=== PATIENT | female | born 1950 | race Caucasian/White ===

== ENCOUNTER 2017-01-04 11:47 | Inpatient (IN) ==
[2017-01-04] MEDS ORDERED: ONDANSETRON 4 MG/2 ML VIAL IV STA (12:14)
[2017-01-04] MEDS ORDERED: ONDANSETRON 4 MG/2 ML VIAL ONE (12:16)
[2017-01-04 12:22] LABS: Eosinophils % 5.4 % (0.00-10.9); Hematocrit 28.9 VOL% (35.7-47.0); Hemoglobin 9.6 GM/DL (12.0-16.0); Immature Granulocytes % 1.8 %; Immature Granulocytes Absolute 0.01 #; Lymphocytes # 0.3 10*3/uL (1.4-4.0); Lymphocytes % 44.6 % (21.3-54.2); Mean Corpuscular HGB Conc 33.2 GM/DL (32-36); Mean Corpuscular Hemoglobin 30 PG (27-34); Mean Corpuscular Volume 89.2 FL (87-102); Mean Platelet Volume 11.2 FL (9.6-12.0); Monocytes # 0.1 10*3/uL (0.11-0.8); Monocytes % 17.9 % (1.7-12.7); Neutrophils # 0.2 10*3/uL (1.4-7.4); Neutrophils % 30.3 % (38.7-73.9); Platelet Count 78 T/CUMM (130-400); Red Blood Count 3.24 MC/CUMM (3.8-5.5); Red Cell Distribution Width 13.1 % (9.3-17.3)
[2017-01-04 12:24] LABS: White Blood Count 0.6 T/CUMM (4-12)
[2017-01-04 12:49] LABS: Albumin 2.1 G/DL (3.4-5.0); Bilirubin,Total 0.6 MG/DL (0.2-1.0); Osmolality,Calculated 283.1 MOS/KG (273-304); Potassium 3.1 MMOL/L (3.5-5.1); Total Protein 6.8 G/DL (6.4-8.3)
[2017-01-04 13:29] LABS: Band Neutrophils 5 % (0-10); Eosinophils 5 % (0-10); Hypochromasia 2+; Lymphocytes 30 % (20-55); Microcytosis 2+; Platelet Estimate Decreased; Segmented Neutrophils 55 % (50-85); Total Cells Counted 20
[2017-01-04] MEDS ORDERED: cefTRIAXone 1,000 MG VIAL ONE (13:33)
[2017-01-04] MEDS ORDERED: chlorproMAZINE INJ 50 MG in SODIUM CHLORIDE 0.9% 100 ML IV PRN (13:37)
[2017-01-04] MEDS ORDERED: chlorproMAZINE 25 MG TABLET PO PRN (13:37)
[2017-01-04] MEDS ORDERED: traMADol 50 MG TABLET PO PRN (13:37)
[2017-01-04] MEDS ORDERED: MYLANTA/LIDO VISC 2:1 300 ML BOTTLE SWISH/SPIT PRN (13:37)
[2017-01-04] MEDS ORDERED: ALPRAZolam 0.25 MG TABLET PO PRN (13:37)
[2017-01-04] MEDS ORDERED: TEMAZEPAM 7.5 MG CAPSULE PO PRN (13:37)
[2017-01-04] MEDS ORDERED: ACETAMINOPHEN 325 MG TABLET PO PRN (13:37)
[2017-01-04] MEDS ORDERED: MYLANTA/LIDO VISC 2:1 300 ML BOTTLE SWISH/SWAL PRN (13:37)
[2017-01-04] MEDS ORDERED: chlorproMAZINE INJ 25 MG in SODIUM CHLORIDE 0.9% 100 ML IV PRN (13:37)
[2017-01-04] MEDS ORDERED: ALUMINUM/MAGNES/SIMETH MAX STR 30 ML UDCUP PO PRN (13:37)
[2017-01-04] MEDS ORDERED: BENZTROPINE 2 MG/2 ML AMP IV PRN (13:37)
[2017-01-04] MEDS ORDERED: MAGNESIUM HYDROXIDE SUSP 30 ML UDCUP PO PRN (13:37)
[2017-01-04] MEDS ORDERED: diphenhydrAMINE CAP 25 MG CAPSULE PO PRN (13:37)
[2017-01-04] MEDS ORDERED: LACTULOSE 20 GM/30 ML UDCUP PO PRN (13:37)
[2017-01-04] MEDS ORDERED: guaiFENesin 200 MG/10 ML UDCUP PO PRN (13:37)
[2017-01-04] MEDS ORDERED: cefTRIAXone 1,000 MG in SODIUM CHLORIDE 0.9% 100 ML IV STA (13:39)
--- NOTE | 2017-01-04 13:44 | XRay Report ---
Exam: XR chest 1V Date: 01/04/2017 1:01 PM Comparison: 11/29/2016 Indication: Cough Technique:[Portable AP sitting chest] Findings: The heart is normal in size. Right subclavian venous access catheter with tip in SVC. Chronic scarring in the lungs. Minimal diffuse parenchymal findings at the left lung base. Stable mediastinum and osseous structures. Old healed rib fractures. Impression: Right subclavian venous access catheter in satisfactory position. Chronic scarring. Atelectasis/infiltration at left lung base which can be seen with pneumonia. Follow-up is recommended. PROCEDURE INTERPRETED AT [facility] DEPARTMENT OF RADIOLOGY Final Report Signed by: Dr. Hollie Gray
--- NOTE | 2017-01-04 13:46 | XRay Report ---
Exam: XR abdomen complete w decub Date: 01/04/2017 1:01 PM Comparison: 06/19/2015 Indication: Nausea and vomiting Technique:[Supine and left lateral decubitus abdomen.] Findings: Nonobstructed bowel gas pattern with no free air. Hazy appearance of the abdomen. Prior cholecystectomy with peritoneal dialysis catheter which projects in the upper left pelvis location. Diffuse arterial calcifications are noted with degenerative changes at L2 rib fractures. Impression: Nonobstructive bowel gas pattern no free air. Hazy appearance of the abdomen which can be seen with fluid in the abdomen in patient on peritoneal dialysis, etc. Prior cholecystectomy with diffuse arterial calcifications. PROCEDURE INTERPRETED AT [facility] DEPARTMENT OF RADIOLOGY Final Report Signed by: Dr. Hollie Gray
--- NOTE | 2017-01-04 14:02 | Emergency Department Note ---
Florencio Houser Hilary, am scribing for, and in the presence of, Albert Daniel MD 13:02. Fredy Houser Phillip K, MD, personally performed the services described in this documentation, ascribed by Donna Matias in my presence, and it is both accurate and complete 401 . Arrival - Arrival Chief Complaint: Nausea/Vomiting/Diarrhea Stated Complaint: n/v ED Nursing Triage Note: Brought in per EMS from home with c/o nausea/vomiting onset approx one month ago. +lower abdominal pain. Had gallbladder removed [address] Malcolm KELLOGG, diagnosed with adenocarcinoma. Had first chemo treatment 8 days ago. Mode of Arrival: Stretcher Source: Patient, RN Notes Reviewed Time Seen by Provider: 01/04/17 12:38 - History of Present Illness HPI Narrative: Pt is a 66 y/o female presenting to the ED with N/V/D which onset one month ago. Pt confirms lower abdominal pain, nausea, vomiting, diarrhea, and no appetite but denies blood in stool. Pt states that this pain was going on 2 weeks before her gallbladder removal [address] Malcolm KELLOGG. Pt was diagnosed with Adenocarcinoma and had her first chemo treatment 8 days ago and was given zofran with no relief to her symptoms. 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 Onset (ago): month(s) Consistency: constant Date of Last Menstrual Period: PM Allergies/Adverse Reactions: Allergies Allergy/AdvReac Type Severity Reaction Status Date / Time meperidine [From Demerol] Allergy Severe ANAPHYLAXIS Verified 01/04/17 11:58 Penicillins Allergy Intermediate RASH Verified 01/04/17 11:58 codeine AdvReac Intermediate Nausea Verified 01/04/17 11:58 NSAIDS (Non-Steroidal AdvReac Unknown Unknown/Unable Verified 01/04/17 11:58 Anti-Inflamma to obtain Home Medications: Home Medications Medication Instructions Recorded Confirmed Type Fluoxetine HCl [Prozac] 40 mg PO DAILY 05/26/15 01/04/17 History Insulin Aspart Prot/Asp 70/30 6 unit SUBCUT BID 05/26/15 01/04/17 History [NovoLOG Mix 70/30] Cholecalciferol (Vitamin D3) 2,000 unit PO DAILY 06/13/15 01/04/17 History [Vitamin D3] Calcium Carbonate/Vitamin D3 1 each PO DAILY 11/04/15 01/04/17 History [Calcium 1,000 + D3 Caplet] Clopidogrel [Plavix] 75 mg PO DAILY 11/04/15 01/04/17 History Potassium Chloride Cap/Tab [Micro 8 meq PO DAILY 11/04/15 01/04/17 History K] Sevelamer Carbonate Tab [Renvela 800 mg PO TID W/MEALS 11/04/15 01/04/17 History Tab] Calcitriol 0.5 mcg PO BID 09/21/16 01/04/17 History Omeprazole 20 mg PO DAILY 09/21/16 01/04/17 History Tramadol HCl [Tramadol Tab] 50 mg PO Q8H PRN 11/29/16 01/04/17 History Loratadine Tab [Claritin Tab] 10 mg PO QOTHER DAY PRN 01/04/17 01/04/17 History Ondansetron [Ondansetron Odt] 8 mg PO Q8H PRN 01/04/17 01/04/17 History Rosuvastatin Calcium 40 mg PO DAILY 01/04/17 01/04/17 History Review of System - Review of System 12 point system: reviewed and no additional remarkable complaints except as stated - Review of System Constitutional: Absent: fever Respiratory: Absent: cough Gastrointestinal: Present: abdominal pain (Lower quadrants), nausea, vomiting, diarrhea (jelly like consistency). Absent: hematemesis, hematochezia Genitourinary female: Absent: hematuria (dialysis doesnt produce urine) Musculoskeletal: Absent: back pain Medical,Surgical,& Family Hx - Medical History Cardio: History of: CAD, Hypertension, [place] (2003), PVD Psychological: History of: Depression Neurology: History of: TIA (spring) No history of: Seizures HEENT: History of: Eye Problem Endocrine: History of: Diabetes Mellitus (IDDM), Dyslipidemia Rheumatology: History of;: Gout Renal: History of: Dialysis (peritoneal dialysis), Renal Failure Comment Only: Renal Problems (PD pt) Genitourinary: History of: Genitourinary Cancer (cervical cancer 2007) Gastrointestinal: History of: GERD, GI Problems (Chronic cholecystitis and cholelithiasis, hiatal hernia) Musculoskeletal: History of: Amputation (2 toes on her right foot) Hematology: History of: Anemia No history of: Blood Transfusion Reaction Reproductive: History of: Reproductive Cancer (cervical) Other: History of: Cancer (adenocarcinoma, DR SOARES TO START CHEMO SOON) No history of: Anesthesia Reactions - Surgical History Cardiac Surgeries: Sugical HX of: Cardiac Catheterization (stents x 2, DR HOUSTON 2003), Vascular Access Devices (MEDIPORT) Patient Denies: Cardiac Surgery Thoracic Surgeries: Patient denies;: Organ Transplant, Lobectomy Neurologic Surgeries: Patient denies: Neurologic Surgery HEENT Surgeries: Surgical HX of: Eye Surgery (cataract), Tonsilectomy & Adenoidectomy Patient denies: Thyroid Surgery Abdominal Surgeries: Surgical HX of: Abdominal Surgery, Appendectomy, Cholecystectomy (November), Colonoscopy, EGD Reproductive Surgeries: Patient denies;: Genitourinary Surgery, Gynecologic Surgery Orthopedic Surgeries: Surgical HX of;: Implanted Devices (mediport right chest) - Family History Family History: Reports;: Family Diabetes (FATHER), Family Heart Disease (FATHER ), Family Hypertension (MOTHER), Family Stroke (STROKE) - Social History Smoking Status: Former smoker Frequency of Alcohol Use: None Type of Drug Use: None Exam Vital Signs: Vital Signs Temperature 97.0 F L 01/04/17 11:47 Pulse Rate 86 01/04/17 11:47 Respiratory Rate 18 01/04/17 11:47 Blood Pressure 160/97 01/04/17 11:47 O2 Sat by Pulse Oximetry 100 01/04/17 11:47 - General General appearance: alert, in no apparent distress - Head Head exam: Present: atraumatic, normocephalic - Eye Eye exam: Present: normal appearance, PERRL, EOMI - ENT ENT exam: Present: mucous membranes moist, TM's normal bilaterally. Absent: mucous membranes dry - Neck Neck exam: Present: full ROM, trachea midline. Absent: tenderness - Chest Chest inspection: Present: symmetric chest wall rise. Absent: tenderness - Respiratory Respiratory exam: Present: normal lung sounds bilaterally. Absent: respiratory distress - Cardiovascular Cardiovascular exam: Present: regular rate, normal rhythm, normal heart sounds. Absent: murmur, rubs, gallop - Abdominal Exam Abdominal exam: Present: soft, tenderness (RLQ and RUQ tenderness to palpation) , rebound, diminished bowel sounds. Absent: distention - Extremities Exam Extremities exam: Present: full ROM. Absent: tenderness, pedal edema - Back Exam Back exam: Present: full ROM. Absent: tenderness - Neurological Exam Neurological exam: Present: alert, oriented X3, CN II-XII intact. Absent: motor sensory deficit - Psychiatric Psychiatric exam: Present: normal affect, normal mood - Skin Skin exam: Present: warm, dry, intact, normal color. Absent: rash Course Course Narrative: Patient discussed with Dr. Soares and Dr. Lam. We will give Rocephin in the ED per Dr. oSares. Results - Labs CBC & BMP: 01/04/17 12:06 01/04/17 12:06 Lab Results: I have reviewed the patients labs Labs: Laboratory Tests 01/04/17 01/04/17 01/04/17 12:06 12:06 12:06 WBC 0.6 L* RBC 3.24 L Hgb 9.6 L Hct 28.9 L Plt Count 78 L Neut % (Auto) 30.3 L Harmon % (Auto) 17.9 H Neut # (Auto) 0.2 L Lymph # (Auto) 0.3 L Harmon # (Auto) 0.1 L Sodium 135 L Potassium 3.1 L Chloride 94 L Anion Gap 17.1 H BUN 44 H Creatinine 8.50 H BUN/Creatinine Ratio 5.00 L Glucose 157 H Calcium 8.0 L Lactate Dehydrogenase 295 H Albumin 2.1 L Globulin 4.7 H Albumin/Globulin Ratio 0.4 L Laboratory Tests 01/04/17 12:06 Lactate Dehydrogenase 295 H Disposition Clinical Impression: Neutropenia, Adenocarcinoma, probable peritonitis, ESRD (end stage renal disease) Case discussed with: patient Disposition: Still a Patient Condition: Guarded
[2017-01-04] MEDS ORDERED: cefTRIAXone 1,000 MG in SODIUM CHLORIDE 0.9% 100 ML IV SCH (17:00)
[2017-01-04] MEDS: PROMETHAZINE INJ 25 MG in SODIUM CHLORIDE 0.9% 50 ML IV PRN (17:38)
[2017-01-04] MEDS: SODIUM CHLORIDE 0.9% 1,000 ML IV SCH (17:38)
[2017-01-04] MEDS: FILGRASTIM-SNDZ 300 MCG/0.5 ML SYRINGE SUBCUT SCH (17:38)
[2017-01-04] MEDS ORDERED: ceFAZolin 1,000 MG VIAL INTRAPERIT SCH (18:00)
--- NOTE | 2017-01-04 21:21 | Nephrology Consult Note ---
History of Present Illness Chief complaint: ESRD History of present illness: Ms. Tellez is a 66 year old female admitted with abdominal pain nausea vomiting and diarrhea. She was recently diagnosed with metastatic adenocarcinoma. She recently started chemotherapy with Taxol and carboplatin. She presented with a two-day history of abdominal pain nausea and diarrhea. She has ESRD and is on peritoneal dialysis. She states her dialysate has remained clear. She has no symptoms of volume overload. She denies fever or chills. She has had diffuse myalgias. Home Medications Medication Instructions Recorded Confirmed Type Fluoxetine HCl [Prozac] 40 mg PO DAILY 05/26/15 01/04/17 History Insulin Aspart Prot/Asp 70/30 6 unit SUBCUT BID 05/26/15 01/04/17 History [NovoLOG Mix 70/30] Cholecalciferol (Vitamin D3) 2,000 unit PO DAILY 06/13/15 01/04/17 History [Vitamin D3] Calcium Carbonate/Vitamin D3 1 each PO DAILY 11/04/15 01/04/17 History [Calcium 1,000 + D3 Caplet] Clopidogrel [Plavix] 75 mg PO DAILY 11/04/15 01/04/17 History Potassium Chloride Cap/Tab [Micro 8 meq PO DAILY 11/04/15 01/04/17 History K] Sevelamer Carbonate Tab [Renvela 800 mg PO TID W/MEALS 11/04/15 01/04/17 History Tab] Calcitriol 0.5 mcg PO BID 09/21/16 01/04/17 History Omeprazole 20 mg PO DAILY 09/21/16 01/04/17 History Tramadol HCl [Tramadol Tab] 50 mg PO Q8H PRN 11/29/16 01/04/17 History Loratadine Tab [Claritin Tab] 10 mg PO QOTHER DAY PRN 01/04/17 01/04/17 History Ondansetron [Ondansetron Odt] 8 mg PO Q8H PRN 01/04/17 01/04/17 History Rosuvastatin Calcium 40 mg PO DAILY 01/04/17 01/04/17 History Allergies Allergy/AdvReac Type Severity Reaction Status Date / Time meperidine [From Demerol] Allergy Severe ANAPHYLAXIS Verified 01/04/17 11:58 Penicillins Allergy Intermediate RASH Verified 01/04/17 11:58 codeine AdvReac Intermediate Nausea Verified 01/04/17 11:58 NSAIDS (Non-Steroidal AdvReac Unknown Unknown/Unable Verified 01/04/17 11:58 Anti-Inflamma to obtain Medical,Surgical,& Family Hx - Medical History Cardio: History of: CAD, Hypertension, [place] (2003), PVD Psychological: History of: Depression Neurology: History of: TIA (spring) No history of: Seizures HEENT: History of: Eye Problem Endocrine: History of: Diabetes Mellitus (IDDM), Dyslipidemia Rheumatology: History of;: Gout Renal: History of: Dialysis (peritoneal dialysis), Renal Failure Comment Only: Renal Problems (PD pt) Genitourinary: History of: Genitourinary Cancer (cervical cancer 2007) Gastrointestinal: History of: GERD, GI Problems (Chronic cholecystitis and cholelithiasis, hiatal hernia) Musculoskeletal: History of: Amputation (2 toes on her right foot) Hematology: History of: Anemia No history of: Blood Transfusion Reaction Reproductive: History of: Reproductive Cancer (cervical) Other: History of: Cancer (adenocarcinoma, DR SOARES TO START CHEMO SOON) No history of: Anesthesia Reactions - Surgical History Cardiac Surgeries: Sugical HX of: Cardiac Catheterization (stents x 2, DR HOUSTON 2003), Vascular Access Devices (MEDIPORT) Patient Denies: Cardiac Surgery Thoracic Surgeries: Patient denies;: Organ Transplant, Lobectomy Neurologic Surgeries: Patient denies: Neurologic Surgery HEENT Surgeries: Surgical HX of: Eye Surgery (cataract), Tonsilectomy & Adenoidectomy Patient denies: Thyroid Surgery Abdominal Surgeries: Surgical HX of: Abdominal Surgery, Appendectomy, Cholecystectomy (November), Colonoscopy, EGD Reproductive Surgeries: Patient denies;: Genitourinary Surgery, Gynecologic Surgery Orthopedic Surgeries: Surgical HX of;: Implanted Devices (mediport right chest) - Family History Family History: Reports;: Family Diabetes (FATHER), Family Heart Disease (FATHER ), Family Hypertension (MOTHER), Family Stroke (STROKE) - Social History Smoking Status: Former smoker Frequency of Alcohol Use: None Type of Drug Use: None Review of Systems 12 point system: reviewed and no additional remarkable complaints except as stated Exam - Vital Signs Vital signs: Period Temp Pulse Resp BP Sys/Mckeon Pulse Ox Last 24 Hr 97.6 F 76-84 18-20 100-143/57-91 97-97 Exam: Gen.: Alert and oriented x3. ENT: Pupils equal round reactive to light. EOMs intact. Mucous membranes moist. Neck: Supple. No JVD or bruit. Cardiovascular: Regular rate and rhythm. No murmur rub or gallop Lungs: Clear Abdomen: Moderate right lower quadrant and left lower quadrant tenderness Extremities: No edema Results - Labs CBC & BMP: 01/04/17 12:06 01/04/17 12:06 Assessment and Plan (1) ESRD (end stage renal disease) Status: Acute Assessment and plan: 66-year-old woman admitted with: * ESRD. Continue peritoneal dialysis as noted below * Abdominal pain nausea and diarrhea. Rule out peritonitis. PD fluid for cell count and culture has been ordered. Empiric intraperitoneal antibiotics started. PD fluid has not been cloudy; however, she is neutropenic. She recently had laparoscopic cholecystectomy. It is not tender in the right upper quadrant. This does not appear to be a complication of her surgery. * Neutropenia. Secondary to chemotherapy * Adenocarcinoma. Primary unknown * Diabetes mellitus * Anemia Current Visit: Yes (2) Adenocarcinoma Status: Acute Current Visit: Yes (3) Neutropenia Status: Acute Current Visit: Yes (4) Anemia Status: Acute Current Visit: No (5) Coronary artery disease Status: Acute Current Visit: No (6) Diabetes Status: Acute Current Visit: No (7) Hypertension Status: Acute Current Visit: Yes
[2017-01-05] MEDS: PROMETHAZINE INJ 25 MG in SODIUM CHLORIDE 0.9% 50 ML IV PRN (03:45)
[2017-01-05] MEDS: ceFAZolin 1,000 MG VIAL INTRAPERIT SCH ×2 (05:14→09:42)
[2017-01-05 06:24] LABS: Albumin 1.8 G/DL (3.4-5.0); Bilirubin,Total 0.5 MG/DL (0.2-1.0); Calcium 7.2 MG/DL (8.5-10.1); Osmolality,Calculated 292.4 MOS/KG (273-304); Potassium 2.9 MMOL/L (3.5-5.1); Total Protein 5.2 G/DL (6.4-8.3)
[2017-01-05] MEDS: SODIUM CHLORIDE 0.9% 1,000 ML IV SCH (06:33)
[2017-01-05 06:35] LABS: Eosinophils % 4.2 % (0.00-10.9); Hematocrit 23.8 VOL% (35.7-47.0); Immature Granulocytes % 3.1 %; Immature Granulocytes Absolute 0.03 #; Lymphocytes # 0.3 10*3/uL (1.4-4.0); Lymphocytes % 34.4 % (21.3-54.2); Mean Corpuscular HGB Conc 32.8 GM/DL (32-36); Mean Corpuscular Hemoglobin 30 PG (27-34); Mean Corpuscular Volume 90.2 FL (87-102); Mean Platelet Volume 10.8 FL (9.6-12.0); Monocytes # 0.2 10*3/uL (0.11-0.8); Monocytes % 22.9 % (1.7-12.7); Neutrophils # 0.3 10*3/uL (1.4-7.4); Neutrophils % 35.4 % (38.7-73.9); Platelet Count 71 T/CUMM (130-400); Red Blood Count 2.64 MC/CUMM (3.8-5.5); Red Cell Distribution Width 13.2 % (9.3-17.3)
[2017-01-05 06:37] LABS: Hemoglobin 7.8 GM/DL (12.0-16.0)
[2017-01-05 07:01] LABS: Band Neutrophils 2 % (0-10); Eosinophils 2 % (0-10); Lymphocytes 39 % (20-55); Nucleated Red Blood Cells 1 (0-5); Segmented Neutrophils 34 % (50-85); Total Cells Counted 100
[2017-01-05 07:02] LABS: Hypochromasia 1+; Microcytosis 1+; Ovalocytes Slight; Platelet Estimate Decreased
[2017-01-05] MEDS ORDERED: SODIUM CHLORIDE 0.9% 250 ML IV PRN (08:44)
--- NOTE | 2017-01-05 08:49 | Oncology History&Physical ---
Assessment and Plan (1) Neutropenia Status: Acute Assessment and plan: The patient is covered with antibiotics. We will follow-up blood cultures. I will transfuse 2 units red blood cells today. Dr. Lam is seeing her for continued peritoneal dialysis. She appears stable at this time. Current Visit: Yes History of Present Illness Chief complaint: Abdominal pain History of present illness: Ms. Tellez is a 66 year old female With ESRD on peritoneal dialysis with recent diagnosis of metastatic adenocarcinoma of undetermined origin. Chemotherapy was given last week with Taxol and carboplatinum. The patient has had nausea vomiting and abdominal pain since that time. On evaluation yesterday in the emergency room she was afebrile but did have evidence of neutropenia anemia and thrombocytopenia. Her abdomen was somewhat tender and there was a concern for peritonitis though her fluid studies do not support this. She is admitted for antibiotics and Neupogen. Home Medications Medication Instructions Recorded Confirmed Type Fluoxetine HCl [Prozac] 40 mg PO DAILY 05/26/15 01/04/17 History Insulin Aspart Prot/Asp 70/30 6 unit SUBCUT BID 05/26/15 01/04/17 History [NovoLOG Mix 70/30] Cholecalciferol (Vitamin D3) 2,000 unit PO DAILY 06/13/15 01/04/17 History [Vitamin D3] Calcium Carbonate/Vitamin D3 1 each PO DAILY 11/04/15 01/04/17 History [Calcium 1,000 + D3 Caplet] Clopidogrel [Plavix] 75 mg PO DAILY 11/04/15 01/04/17 History Potassium Chloride Cap/Tab [Micro 8 meq PO DAILY 11/04/15 01/04/17 History K] Sevelamer Carbonate Tab [Renvela 800 mg PO TID W/MEALS 11/04/15 01/04/17 History Tab] Calcitriol 0.5 mcg PO BID 09/21/16 01/04/17 History Omeprazole 20 mg PO DAILY 09/21/16 01/04/17 History Tramadol HCl [Tramadol Tab] 50 mg PO Q8H PRN 11/29/16 01/04/17 History Loratadine Tab [Claritin Tab] 10 mg PO QOTHER DAY PRN 01/04/17 01/04/17 History Ondansetron [Ondansetron Odt] 8 mg PO Q8H PRN 01/04/17 01/04/17 History Rosuvastatin Calcium 40 mg PO DAILY 01/04/17 01/04/17 History Allergies Allergy/AdvReac Type Severity Reaction Status Date / Time meperidine [From Demerol] Allergy Severe ANAPHYLAXIS Verified 01/04/17 11:58 Penicillins Allergy Intermediate RASH Verified 01/04/17 11:58 codeine AdvReac Intermediate Nausea Verified 01/04/17 11:58 NSAIDS (Non-Steroidal AdvReac Unknown Unknown/Unable Verified 01/04/17 11:58 Anti-Inflamma to obtain Medical,Surgical,& Family Hx - Medical History Cardio: History of: CAD, Hypertension, [place] (2003), PVD Psychological: History of: Depression Neurology: History of: TIA (spring) No history of: Seizures HEENT: History of: Eye Problem Endocrine: History of: Diabetes Mellitus (IDDM), Dyslipidemia Rheumatology: History of;: Gout Renal: History of: Dialysis (peritoneal dialysis), Renal Failure Comment Only: Renal Problems (PD pt) Genitourinary: History of: Genitourinary Cancer (cervical cancer 2007) Gastrointestinal: History of: GERD, GI Problems (Chronic cholecystitis and cholelithiasis, hiatal hernia) Musculoskeletal: History of: Amputation (2 toes on her right foot) Hematology: History of: Anemia No history of: Blood Transfusion Reaction Reproductive: History of: Reproductive Cancer (cervical) Other: History of: Cancer (adenocarcinoma, DR SOARES TO START CHEMO SOON) No history of: Anesthesia Reactions - Surgical History Cardiac Surgeries: Sugical HX of: Cardiac Catheterization (stents x 2, DR HOUSTON 2003), Vascular Access Devices (MEDIPORT) Patient Denies: Cardiac Surgery Thoracic Surgeries: Patient denies;: Organ Transplant, Lobectomy Neurologic Surgeries: Patient denies: Neurologic Surgery HEENT Surgeries: Surgical HX of: Eye Surgery (cataract), Tonsilectomy & Adenoidectomy Patient denies: Thyroid Surgery Abdominal Surgeries: Surgical HX of: Abdominal Surgery, Appendectomy, Cholecystectomy (November), Colonoscopy, EGD Reproductive Surgeries: Patient denies;: Genitourinary Surgery, Gynecologic Surgery Orthopedic Surgeries: Surgical HX of;: Implanted Devices (mediport right chest) - Family History Family History: Reports;: Family Diabetes (FATHER), Family Heart Disease (FATHER ), Family Hypertension (MOTHER), Family Stroke (STROKE) - Social History Smoking Status: Former smoker Frequency of Alcohol Use: None Type of Drug Use: None - Constitutional Constitutional: Present: fatigue. Absent: fever(s) - EENT Eye: Absent: blurry vision Ears: Absent: ear discharge, ear pain Nose, mouth and throat: Absent: epistaxis, neck mass, neck pain - Cardiovascular Cardiovascular ROS IM: Absent: chest pain - Respiratory Respiratory: Absent: hemoptysis - Gastrointestinal Gastrointestinal: Present: abdominal pain, diarrhea. Absent: dysphagia - Genitourinary Genitourinary ROS female: Absent: dysuria - Musculoskeletal Musculoskeletal ROS: Absent: muscle weakness - Psychiatric Psychiatric General: Absent: anxiety, confusion Exam - Constitutional Vitals: Period Temp Pulse Resp BP Sys/Mckeon Pulse Ox Last 24 Hr 96.7 F-98.3 F 76-104 18-20 86-143/47-91 90-97 General appearance: over weight - Head Head Exam: Present: normal inspection, normocephalic - Eye Eye Exam: Present: EOMI. Absent: conjunctival injection, periorbital swelling, scleral icterus Pupils: Present: PERRL, normal accommodation - ENT ENT exam: Present: normal external ear exam - Neck Neck exam: Present: normal inspection. Absent: lymphadenopathy - Respiratory Respiratory exam: Present: CTAB. Absent: accessory muscle use, chest wall tenderness - Cardiovascular Cardiovascular exam: Present: RRR - GI/Abdominal GI/Abdominal exam: Absent: ascites, distended, firm, guarding, tenderness - Neurological Exam Neurological exam: Present: alert, oriented X3 Results - Labs CBC & BMP: 01/05/17 04:00 01/05/17 04:00
[2017-01-05] MEDS ORDERED: ONDANSETRON ODT 4 MG TABLET PO PRN (08:51)
[2017-01-05] MEDS ORDERED: traMADol 50 MG TABLET PO PRN (08:51)
[2017-01-05] MEDS ORDERED: LORATADINE 10 MG TABLET PO PRN (08:51)
[2017-01-05] MEDS ORDERED: POTASSIUM CHLORIDE 20 MEQ TABLET PO ONE (08:52)
[2017-01-05] MEDS: FILGRASTIM-SNDZ 300 MCG/0.5 ML SYRINGE SUBCUT SCH (08:54)
[2017-01-05] MEDS: cefTRIAXone 1,000 MG in SODIUM CHLORIDE 0.9% 100 ML IV SCH (10:00)
[2017-01-05] MEDS: CLOPIDOGREL 75 MG TABLET PO SCH (10:06)
[2017-01-05] MEDS: POTASSIUM CHLORIDE 8 MEQ CAPSULE PO SCH (10:06)
[2017-01-05] MEDS: CALCIUM (CARBONATE)/VITAMIN D 600 MG-400 UNIT TABLET PO SCH (10:06)
[2017-01-05] MEDS: PANTOPRAZOLE 40 MG TABLET PO SCH (10:07)
[2017-01-05] MEDS: FLUoxetine 20 MG CAPSULE PO SCH (10:07)
[2017-01-05] MEDS: CALCITRIOL 0.25 MCG CAPSULE PO SCH ×2 (10:16→20:39)
[2017-01-05] MEDS: CHOLECALCIFEROL 1,000 UNIT TABLET PO SCH (10:16)
[2017-01-05] MEDS: INSULIN ASPART PROTAMINE/ASPART 70/30 100 UNIT/ML SUBCUT SCH ×2 (10:22→20:42)
[2017-01-05] MEDS ORDERED: GLUCAGON 1 MG VIAL IM PRN (13:20)
[2017-01-05] MEDS ORDERED: DEXTROSE 50% 25 GM/50 ML VIAL IV PRN (13:20)
[2017-01-05] MEDS: SEVELAMER CARBONATE 800 MG TABLET PO SCH ×3 (13:57→17:36)
[2017-01-05] MEDS: INSULIN REGULAR 100 UNIT/ML SUBCUT SCH ×3 (13:59→20:42)
--- NOTE | 2017-01-05 18:11 | Nephrology Progress Note ---
Nephrology - PN: Subj Interval history: She feels significantly better today. Nausea has improved. Abdominal pain less Exam (PN)-Nephrology - Vital Signs Vital signs: Period Temp Pulse Resp BP Sys/Mckeon Pulse Ox Last 24 Hr 97.2 F-99.3 F 83-98 18-20 110-164/52-72 90-95 Exam: Gen.: Alert and oriented x3. ENT: Pupils equal round reactive to light. EOMs intact. Mucous membranes moist. Neck: Supple. No JVD or bruit. Cardiovascular: Regular rate and rhythm. No murmur rub or gallop Lungs: Clear Abdomen: Mild right lower quadrant and left lower quadrant tenderness. No rebound Extremities: No edema - Lab 01/05/17 04:00 01/05/17 04:00 Most recent lab results Calcium 7.2 MG/DL (8.5-10.1) L 01/05/17 04:00 Assessment and Plan (1) ESRD (end stage renal disease) Status: Acute Assessment and plan: 66-year-old woman admitted with: * ESRD. Continue peritoneal dialysis as noted below * Abdominal pain nausea and diarrhea. Rule out peritonitis. White blood cell count 18 in PD fluid. Culture pending * Neutropenia. Secondary to chemotherapy * Adenocarcinoma. Primary unknown * Diabetes mellitus * Anemia Current Visit: Yes (2) Adenocarcinoma Status: Acute Current Visit: Yes (3) Neutropenia Status: Acute Current Visit: Yes (4) Anemia Status: Acute Current Visit: No (5) Coronary artery disease Status: Acute Current Visit: No (6) Diabetes Status: Acute Current Visit: No (7) Hypertension Status: Acute Current Visit: Yes
[2017-01-05] MEDS: DESITIN 4OZ/NYSTATIN 15 GRAM MIXTURE PASTE TOP SCH (20:41)
[2017-01-06 05:47] LABS: Basophils # 0.1 10*3/uL (0.0-0.2); Basophils % 1.3 % (0.0-0.8); Eosinophils # 0.2 10*3/uL (0.0-0.87); Eosinophils % 3.3 % (0.00-10.9); Hemoglobin 9.9 GM/DL (12.0-16.0); Immature Granulocytes % 4.9 %; Immature Granulocytes Absolute 0.22 #; Lymphocytes # 0.7 10*3/uL (1.4-4.0); Lymphocytes % 16.1 % (21.3-54.2); Mean Corpuscular Hemoglobin 30 PG (27-34); Mean Corpuscular Volume 89.6 FL (87-102); Mean Platelet Volume 10.8 FL (9.6-12.0); Monocytes # 0.6 10*3/uL (0.11-0.8); Monocytes % 13.6 % (1.7-12.7); NRBC # 0.02 10*3/uL; Neutrophils # 2.7 10*3/uL (1.4-7.4); Neutrophils % 60.8 % (38.7-73.9); Platelet Count 75 T/CUMM (130-400); Red Blood Count 3.35 MC/CUMM (3.8-5.5); Red Cell Distribution Width 13.7 % (9.3-17.3); White Blood Count 4.5 T/CUMM (4-12)
[2017-01-06 06:16] LABS: Band Neutrophils 13 % (0-10); Eosinophils 4 % (0-10); Hypochromasia 1+; Lymphocytes 12 % (20-55); Promyelocytes 1 %; Segmented Neutrophils 56 % (50-85); Total Cells Counted 100
[2017-01-06 06:17] LABS: Microcytosis 1+; Platelet Estimate Decreased
[2017-01-06 06:31] LABS: Albumin 1.7 G/DL (3.4-5.0); Bilirubin,Total 0.9 MG/DL (0.2-1.0); Calcium 7.8 MG/DL (8.5-10.1); Osmolality,Calculated 288.4 MOS/KG (273-304); Potassium 2.6 MMOL/L (3.5-5.1); Total Protein 5.4 G/DL (6.4-8.3)
[2017-01-06] MEDS: ceFAZolin 1,000 MG VIAL INTRAPERIT SCH ×2 (06:31→19:22)
[2017-01-06] MEDS: SEVELAMER CARBONATE 800 MG TABLET PO SCH ×3 (08:34→16:59)
[2017-01-06] MEDS: INSULIN REGULAR 100 UNIT/ML SUBCUT SCH ×3 (08:53→18:03)
[2017-01-06] MEDS: POTASSIUM CHLORIDE 8 MEQ CAPSULE PO SCH (08:54)
[2017-01-06] MEDS: FLUoxetine 20 MG CAPSULE PO SCH (08:54)
[2017-01-06] MEDS: PANTOPRAZOLE 40 MG TABLET PO SCH (08:54)
[2017-01-06] MEDS: CHOLECALCIFEROL 1,000 UNIT TABLET PO SCH (08:54)
[2017-01-06] MEDS: CALCIUM (CARBONATE)/VITAMIN D 600 MG-400 UNIT TABLET PO SCH (08:55)
[2017-01-06] MEDS: CALCITRIOL 0.25 MCG CAPSULE PO SCH ×2 (08:55→21:07)
[2017-01-06] MEDS: INSULIN ASPART PROTAMINE/ASPART 70/30 100 UNIT/ML SUBCUT SCH (08:55)
[2017-01-06] MEDS: FILGRASTIM-SNDZ 300 MCG/0.5 ML SYRINGE SUBCUT SCH (08:55)
[2017-01-06] MEDS: cefTRIAXone 1,000 MG in SODIUM CHLORIDE 0.9% 100 ML IV SCH (08:58)
--- NOTE | 2017-01-06 09:15 | Oncology Progress Note ---
Assessment and Plan (1) Neutropenia Status: Acute Assessment and plan: The patient is covered with antibiotics. We will follow-up blood cultures. I will transfuse 2 units red blood cells today. Dr. Lam is seeing her for continued peritoneal dialysis. She appears stable at this time. Current Visit: Yes Oncology Subjective PN Interval history: Patient with adenocarcinoma metastatic of unknown primary status post first chemotherapy now with pancytopenia. Her white blood count is improving. She appears nontoxic. Peritoneal fluid negative for significant neutrophils. Her lungs are clear. She is having some difficulty controlling her left hand and is reporting some left-sided weakness. She had a lacunar infarct noted on October MRI brain. She is high risk for further CVA and also for GRADER MARKER metastasis. We will replete her potassium and magnesium today and plan on MRI later this afternoon. Continuing systemic antibiotics and Neupogen Exam - Constitutional Vitals: Period Temp Pulse Resp BP Sys/Mckeon Pulse Ox Last 24 Hr 80 F-99.3 F 80-98 18-20 110-196/52-95 90-95 Results - Labs CBC & BMP: 01/06/17 04:41 01/06/17 04:41
[2017-01-06] MEDS ORDERED: MAGNESIUM SULF RIDER 2 GM in PREMIX 1 EACH IV ONE (09:20)
--- NOTE | 2017-01-06 10:21 | Nephrology Progress Note ---
Nephrology - PN: Subj Interval history: Pt states her RLQ abd pain is about the same as yesterday, but improved from admission. She denies SOB. Exam (PN)-Nephrology - Vital Signs Vital signs: Period Temp Pulse Resp BP Sys/Mckeno Pulse Ox Last 24 Hr 80 F-99.3 F 80-98 18-20 110-196/52-95 90-95 - General Appearance General appearance: well-developed, obese EENT: ATNC, PERRL, mucous membranes dry, hearing intact, vision intact Neck: no JVD, no thyromegaly Respiratory: no kyphosis, clear Cardiology: no murmurs, no rub, edema Gastrointestinal: normoactive bowel sounds, no guarding, obese Integumentary: no rash, warm and dry Neurologic: no focal deficit, no asterixis, alert and oriented x3 Musculoskeletal: no deformities, no erythema - Lab 01/06/17 04:41 01/06/17 04:41 Most recent lab results Calcium 7.8 MG/DL (8.5-10.1) L 01/06/17 04:41 Assessment and Plan (1) ESRD on peritoneal dialysis Problem details: Continue current exchanges. Replace K. Status: Acute Current Visit: Yes
[2017-01-06] MEDS: DESITIN 4OZ/NYSTATIN 15 GRAM MIXTURE PASTE TOP SCH ×2 (11:34→21:09)
[2017-01-06] MEDS: POTASSIUM CHLORIDE RIDER 20 MEQ in PREMIX 1 EACH IV SCH ×2 (11:35→13:31)
[2017-01-06] MEDS: CLOPIDOGREL 75 MG TABLET PO SCH (12:16)
[2017-01-07] MEDS: INSULIN REGULAR 100 UNIT/ML SUBCUT SCH ×5 (00:18→20:11)
[2017-01-07] MEDS: INSULIN ASPART PROTAMINE/ASPART 70/30 100 UNIT/ML SUBCUT SCH ×3 (00:19→20:38)
[2017-01-07 07:06] LABS: Basophils # 0.1 10*3/uL (0.0-0.2); Basophils % 0.8 % (0.0-0.8); Eosinophils # 0.1 10*3/uL (0.0-0.87); Eosinophils % 0.7 % (0.00-10.9); Hematocrit 33.2 VOL% (35.7-47.0); Hemoglobin 10.9 GM/DL (12.0-16.0); Immature Granulocytes % 5.3 %; Immature Granulocytes Absolute 0.75 #; Lymphocytes # 0.9 10*3/uL (1.4-4.0); Lymphocytes % 6.6 % (21.3-54.2); Mean Corpuscular HGB Conc 32.8 GM/DL (32-36); Mean Corpuscular Hemoglobin 30 PG (27-34); Mean Corpuscular Volume 91.2 FL (87-102); Mean Platelet Volume 10.7 FL (9.6-12.0); Monocytes # 0.9 10*3/uL (0.11-0.8); Monocytes % 6.7 % (1.7-12.7); Neutrophils # 11.2 10*3/uL (1.4-7.4); Neutrophils % 79.9 % (38.7-73.9); Platelet Count 88 T/CUMM (130-400); Red Blood Count 3.64 MC/CUMM (3.8-5.5); Red Cell Distribution Width 13.7 % (9.3-17.3)
[2017-01-07 07:40] LABS: Alanine Aminotransferase < 9 U/L (13-56); Albumin 1.7 G/DL (3.4-5.0); Alkaline Phosphatase 119 U/L (45-117); Aspartate Amino Transferase 23 U/L (0-37); Blood Urea Nitrogen 37 MG/DL (7-18); Glucose 85 MG/DL (74-106); Osmolality,Calculated 288.3 MOS/KG (273-304); Potassium 2.7 MMOL/L (3.5-5.1); Sodium 141 MMOL/L (136-145); Total Protein 5.1 G/DL (6.4-8.3)
[2017-01-07 08:06] LABS: Band Neutrophils 7 % (0-10); Eosinophils 1 % (0-10); Hypochromasia 1+; Lymphocytes 4 % (20-55); Metamyelocytes 2 %; Microcytosis 1+; Segmented Neutrophils 83 % (50-85); Total Cells Counted 100
[2017-01-07 08:23] LABS: Platelet Estimate Decreased
--- NOTE | 2017-01-07 09:36 | Nephrology Progress Note ---
Nephrology - PN: Subj Interval history: PT still with diarrhea, abd pain resolved. WBC up to 14k today. She c/o her left hand not working properly. Abnormal finger pointing. She reports having 2 "mini strokes" in past with no prior noted residual neurologic deficits. Had K and Mg replaced yesterday. Exam (PN)-Nephrology - Vital Signs Vital signs: Period Temp Pulse Resp BP Sys/Mckeon Pulse Ox Last 24 Hr 97.1 F-97.9 F 86-96 18-20 98-178/42-67 92-96 - General Appearance General appearance: well-developed, chronically ill EENT: ATNC, PERRL, mucous membranes dry, hearing intact, vision intact Neck: no JVD, no thyromegaly Respiratory: no kyphosis, clear Cardiology: no murmurs, no rub Gastrointestinal: normoactive bowel sounds, no tenderness Integumentary: no rash, warm and dry Neurologic: no focal deficit, no asterixis, upper extremity weakness (left upper extremity abnormal finger pointing) Musculoskeletal: no deformities, no erythema Psychiatric: mood/affect appropriate, cooperative - Lab 01/07/17 04:15 01/07/17 04:15 Most recent lab results Calcium 8.0 MG/DL (8.5-10.1) L 01/07/17 04:15 Assessment and Plan (1) ESRD on peritoneal dialysis Problem details: Continue current exchanges. 40meq po bid ordered. Goal >3.5. Status: Acute Current Visit: Yes
[2017-01-07] MEDS: CHOLECALCIFEROL 1,000 UNIT TABLET PO SCH (09:55)
[2017-01-07] MEDS: CALCITRIOL 0.25 MCG CAPSULE PO SCH ×2 (09:55→20:33)
[2017-01-07] MEDS: CALCIUM (CARBONATE)/VITAMIN D 600 MG-400 UNIT TABLET PO SCH (09:56)
[2017-01-07] MEDS: FLUoxetine 20 MG CAPSULE PO SCH (09:56)
[2017-01-07] MEDS: CLOPIDOGREL 75 MG TABLET PO SCH (09:56)
[2017-01-07] MEDS: SEVELAMER CARBONATE 800 MG TABLET PO SCH ×3 (09:56→17:18)
[2017-01-07] MEDS: PANTOPRAZOLE 40 MG TABLET PO SCH (09:56)
[2017-01-07] MEDS: cefTRIAXone 1,000 MG in SODIUM CHLORIDE 0.9% 100 ML IV SCH (09:57)
[2017-01-07] MEDS: DESITIN 4OZ/NYSTATIN 15 GRAM MIXTURE PASTE TOP SCH ×2 (09:58→20:38)
[2017-01-07] MEDS: FILGRASTIM-SNDZ 300 MCG/0.5 ML SYRINGE SUBCUT SCH (09:58)
--- NOTE | 2017-01-07 10:54 | Oncology Progress Note ---
Assessment and Plan (1) Neutropenia Status: Acute Assessment and plan: The patient is covered with antibiotics. We will follow-up blood cultures. I will transfuse 2 units red blood cells today. Dr. Lam is seeing her for continued peritoneal dialysis. She appears stable at this time. Current Visit: Yes Oncology Subjective PN Interval history: Patient stable overnight. Ongoing potassium replacement. Magnesium level is pending for today. Still with some difficulty with left hand usage and some subjective weakness involving the left leg. I canceled her MRI yesterday in an attempt to see if the musculoskeletal symptoms would respond to electrolyte manipulation. I am rescheduling this today with both the concern for malignancy and/or another vascular event. I am going to stop her antibiotics as her white blood count is normalized, she is afebrile and cultures are negative. Hopefully this will help with her diarrhea along with the addition of a probiotic. Her abdominal exam is benign Exam - Constitutional Vitals: Period Temp Pulse Resp BP Sys/Mckeon Pulse Ox Last 24 Hr 97.1 F-97.9 F 86-98 18-20 98-178/42-67 92-96 Results - Labs CBC & BMP: 01/07/17 04:15 01/07/17 04:15
[2017-01-07] MEDS: POTASSIUM CHLORIDE 20 MEQ TABLET PO SCH ×2 (11:05→20:35)
[2017-01-07] MEDS: LOPERAMIDE 2 MG CAPSULE PO PRN ×2 (11:10→20:37)
[2017-01-07] MEDS: LACTOBACILLUS RHAMNOSUS GG CAPSULE PO SCH (11:11)
[2017-01-07] MEDS: POTASSIUM CHLORIDE 8 MEQ CAPSULE PO SCH (12:11)
[2017-01-07] MEDS: ONDANSETRON 4 MG/2 ML VIAL IV PRN (13:37)
[2017-01-07] MEDS: POTASSIUM CHLORIDE RIDER 20 MEQ in PREMIX 1 EACH IV SCH ×2 (13:37→15:52)
--- NOTE | 2017-01-07 13:56 | Magnetic Resonance Report ---
Referring physician: Jakub Dumont Exam: MRI brain without contrast Date: January 07, 2017 Comparison: MRI brain October 22, 2015 Reason: Cancer and left upper extremity weakness The patient is an inpatient who was admitted on January 05, 2017. Technique: MRI of the brain was performed without the use of contrast. Obtained images include sagittal T1, axial diffusion-weighted, axial FLAIR, axial T2, coronal T2, axial gradient and axial T1 sequences. A 1.5 Cynthia magnet was used. Findings: There is a moderate area of diffusion restriction with corresponding T2/FLAIR hyperintensity within the superior left cerebellum. It measures approximately 3.5 cm in maximum dimension on the coronal images and is most consistent with an acute infarction. This is in a superior cerebellar artery distribution. A tiny acute infarction is also suspected at the cortex of the parasagittal right occipital lobe. There is a minimal area of diffusion restriction at the subcortical white matter of the posterior right parietal lobe. No corresponding abnormal signal seen on the ADC map, and this likely reflects artifact. There is FLAIR hyperintensity in this area, which likely represents a small remote infarction. Similar abnormal signal is seen at the cortex of the posterior lateral left parietal lobe, suggesting a small remote infarction. There are small scattered areas of T2/FLAIR hyperintensity within the cerebral white matter bilaterally as well as within the michelle. This is similar to before. This is nonspecific but likely represents chronic microvascular ischemic change. Less likely considerations include a demyelinating process, vasculitis, viral process or Lyme disease. A remote lacunar infarction is seen within the right thalamus. This may have been present on the previous study but is better visualized today. A lacunar infarction was previously seen within the periventricular white matter of the left frontal lobe but is not well-demonstrated on today. No hydrocephalus or midline shift is present. There is minimal T1 hyperintensity at the cortex at the small remote infarction at the posterior right parietal lobe. This likely represents calcification and less likely minimal hemorrhage. Minimal T1 hyperintensity is also seen at the cortex of the parasagittal occipital lobes and may represent additional calcification and less likely minimal petechial hemorrhage. The patient may be status post cataract surgery. The orbits and sella are otherwise unremarkable. Major vascular flow voids are visualized. There is minimal mucosal thickening within the right ethmoid air cells. The right mastoid air cells are clear. There is mild fluid within the left mastoid air cells. Impression: 1. There is a moderate acute infarction involving the superior aspect of the left cerebellum in a left superior cerebellar artery distribution. 2. Tiny subcentimeter acute cortical infarction at the parasagittal right occipital lobe. This is in a right posterior cerebral artery distribution. 3. There are small remote infarctions at the posterior parietal lobes bilaterally and a remote lacunar infarction within the right thalamus. 4. Probable mild chronic microvascular ischemic change, similar to before. Findings were discussed with Dr. Dumont on January 07, 2017 at 1:50 PM. This is a critical test. PROCEDURE INTERPRETED AT [facility] DEPARTMENT OF RADIOLOGY Final Report Signed by: Dr. Pallavi Myrick
[2017-01-08] MEDS ORDERED: LACTOBACILLUS RHAMNOSUS GG CAPSULE PO SCH (09:00)
[2017-01-08] MEDS: INSULIN ASPART PROTAMINE/ASPART 70/30 100 UNIT/ML SUBCUT SCH ×2 (09:33→22:13)
[2017-01-08] MEDS: SEVELAMER CARBONATE 800 MG TABLET PO SCH ×3 (09:34→18:25)
[2017-01-08] MEDS: FLUoxetine 20 MG CAPSULE PO SCH (09:35)
[2017-01-08] MEDS: PANTOPRAZOLE 40 MG TABLET PO SCH (09:36)
[2017-01-08] MEDS: CALCITRIOL 0.25 MCG CAPSULE PO SCH ×2 (09:36→22:13)
[2017-01-08] MEDS: CHOLECALCIFEROL 1,000 UNIT TABLET PO SCH (09:37)
[2017-01-08] MEDS: CALCIUM (CARBONATE)/VITAMIN D 600 MG-400 UNIT TABLET PO SCH (09:37)
[2017-01-08] MEDS: POTASSIUM CHLORIDE 20 MEQ TABLET PO SCH ×2 (09:38→22:13)
[2017-01-08] MEDS: CLOPIDOGREL 75 MG TABLET PO SCH (09:38)
[2017-01-08] MEDS: LACTOBACILLUS RHAMNOSUS GG CAPSULE PO SCH (09:38)
[2017-01-08] MEDS: LOPERAMIDE 2 MG CAPSULE PO PRN ×2 (09:38→22:13)
[2017-01-08] MEDS: DESITIN 4OZ/NYSTATIN 15 GRAM MIXTURE PASTE TOP SCH ×2 (09:39→22:12)
[2017-01-08] MEDS: INSULIN REGULAR 100 UNIT/ML SUBCUT SCH ×4 (09:39→21:19)
[2017-01-08 09:54] LABS: Basophils # 0.1 10*3/uL (0.0-0.2); Basophils % 0.4 % (0.0-0.8); Eosinophils # 0.1 10*3/uL (0.0-0.87); Eosinophils % 0.8 % (0.00-10.9); Hematocrit 37.2 VOL% (35.7-47.0); Hemoglobin 12.2 GM/DL (12.0-16.0); Immature Granulocytes % 5.6 %; Immature Granulocytes Absolute 0.74 #; Lymphocytes # 1.1 10*3/uL (1.4-4.0); Lymphocytes % 8.1 % (21.3-54.2); Mean Corpuscular HGB Conc 32.8 GM/DL (32-36); Mean Corpuscular Hemoglobin 30 PG (27-34); Mean Corpuscular Volume 92.1 FL (87-102); Mean Platelet Volume 10.3 FL (9.6-12.0); Monocytes # 1.5 10*3/uL (0.11-0.8); Monocytes % 11.7 % (1.7-12.7); Neutrophils # 9.7 10*3/uL (1.4-7.4); Neutrophils % 73.4 % (38.7-73.9); Platelet Count 90 T/CUMM (130-400); Red Blood Count 4.04 MC/CUMM (3.8-5.5); Red Cell Distribution Width 14.2 % (9.3-17.3); White Blood Count 13.2 T/CUMM (4-12)
[2017-01-08 10:20] LABS: Band Neutrophils 3 % (0-10); Eosinophils 1 % (0-10); Hypochromasia 1+; Lymphocytes 13 % (20-55); Ovalocytes Slight; Platelet Estimate Decreased; Segmented Neutrophils 76 % (50-85); Total Cells Counted 100
[2017-01-08 10:21] LABS: Microcytosis 1+
[2017-01-08 10:34] LABS: Albumin 1.9 G/DL (3.4-5.0); Calcium 8.1 MG/DL (8.5-10.1); Osmolality,Calculated 292.1 MOS/KG (273-304); Phosphorous 3.1 MG/DL (2.5-4.9)
--- NOTE | 2017-01-08 11:35 | Oncology Progress Note ---
Assessment and Plan (1) CVA (cerebral vascular accident) Status: Acute Assessment and plan: 66 year old female with PMHx of adenocarcinoma stage 4 CUP and on peritoneal dialysis admitted for diarrhea and neutropenia. Hospital course complicated by LUE and LLE weakness with MRI diagnostic of acute CVA as well as new onset swelling of RUE with a port on same side as swelling. 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 - clinically improved today - continue with plavix - BP controlled - glucose controlled Current Visit: Yes (2) Swelling of extremity, right Status: Acute Assessment and plan: - concern for acute DVT - will check a venous doppler - discussed with patient potential need for anticoagulation as well as risk associated in setting of recent CVA on plavix Current Visit: Yes (3) ESRD (end stage renal disease) Status: Acute Assessment and plan: - appreciated renal assistance with peritoneal dialysis Current Visit: Yes (4) Adenocarcinoma Status: Acute Assessment and plan: - will follow up outpatient for further assessment for chemotherapy Current Visit: Yes Oncology Subjective PN Interval history: 66 year old female with PMHx of adenocarcinoma stage 4 CUP and on peritoneal dialysis admitted for diarrhea and neutropenia. Hospital course complicated by LUE and LLE weakness with MRI diagnostic of acute CVA as well as new onset swelling of RUE with a port on same side as swelling. Other than swelling patient states doing ok today. Refers some pain in digits of RUE but otherwise no abdominal pain. Ambulating some. States weakness of left side improved. No headaches. No bleeding history. No fevers. No difficulty with swallowing. No fevers. Exam - Constitutional Vitals: Period Temp Pulse Resp BP Sys/Mckeon Pulse Ox Last 24 Hr 96.4 F-98.5 F 53-109 14-22 94-133/51-78 94-99 General appearance: no acute distress - Eye Eye Exam: Present: EOMI - Respiratory Respiratory exam: Present: CTAB - Cardiovascular Cardiovascular exam: Present: RRR - GI/Abdominal GI/Abdominal exam: Present: soft. Absent: ascites, distended, mass, tenderness - Extremities Exam Extremities exam: Present: edema (RUE swelling) - Neurological Exam Neurological exam: Present: alert, oriented X3, other (weakness LUE and LLE) - Skin Skin exam: Present: warm Results - Labs CBC & BMP: 01/08/17 09:38 01/08/17 09:38
--- NOTE | 2017-01-08 14:36 | Nephrology Progress Note ---
Nephrology - PN: Subj Interval history: Pt states she feels much better today. K normal. Left arm weakness improved. MRI revealed acute cerebellar stroke and old brainstem strokes as well. Diarrhea maybe better. New right arm edema. U/S ordered to evaluate for DVT. Exam (PN)-Nephrology - Vital Signs Vital signs: Period Temp Pulse Resp BP Sys/Mckeon Pulse Ox Last 24 Hr 96.4 F-98.5 F 53-109 14-22 94-133/51-78 94-99 - General Appearance General appearance: well-developed, obese EENT: ATNC, PERRL, mucous membranes moist, hearing intact, vision intact Neck: no JVD, no carotid bruit Respiratory: no kyphosis, clear Cardiology: no murmurs, edema (RUE >LUE) Gastrointestinal: normoactive bowel sounds, no tenderness Integumentary: rash (petechial on bilateral UE), warm and dry Neurologic: no asterixis, alert and oriented x3 Musculoskeletal: no deformities, no erythema Psychiatric: mood/affect appropriate, cooperative - Lab 01/08/17 09:38 01/08/17 09:38 Most recent lab results Calcium 8.1 MG/DL (8.5-10.1) L 01/08/17 09:38 Phosphorus 3.1 MG/DL (2.5-4.9) 01/08/17 09:38 Magnesium 2.0 MG/DL (1.8-2.4) 01/07/17 04:15 Assessment and Plan (1) ESRD on peritoneal dialysis Problem details: Continue current exchanges. 40meq po bid ordered. Goal >3.5. Status: Acute Current Visit: Yes
--- NOTE | 2017-01-08 21:27 | Ultrasound Report ---
Indication: Right arm swelling, 3 weeks post-Mediport insertion Duplex scan of the right upper extremity veins Technique: Duplex scan of the right upper extremity veins using B-mode/grayscale imaging and Doppler spectral analysis and color flow Findings: Major venous structures of the right upper extremity demonstrate noncompressibility, lack of flow on color Doppler and filling defects within the subclavian, brachial and basilic veins. The right internal jugular vein and the right cephalic vein however remain compressible with no filling defects. Impression: Images are significant for venous thrombus filling the right subclavian, brachial and basilic veins. Right internal jugular and cephalic veins appear patent. PROCEDURE INTERPRETED AT [facility] DEPARTMENT OF RADIOLOGY Final Report Signed by: Minor Weiss
[2017-01-08] MEDS: HEPARIN DRIP 25,000 UNITS/500 ML PREMIX IV SCH (22:46)
[2017-01-09 04:42] LABS: Basophils # 0.1 10*3/uL (0.0-0.2); Basophils % 0.5 % (0.0-0.8); Eosinophils # 0.1 10*3/uL (0.0-0.87); Eosinophils % 0.8 % (0.00-10.9); Hematocrit 32.5 VOL% (35.7-47.0); Hemoglobin 10.9 GM/DL (12.0-16.0); Immature Granulocytes % 4.9 %; Immature Granulocytes Absolute 0.54 #; Lymphocytes # 1.3 10*3/uL (1.4-4.0); Lymphocytes % 11.4 % (21.3-54.2); Mean Corpuscular HGB Conc 33.5 GM/DL (32-36); Mean Corpuscular Hemoglobin 30 PG (27-34); Mean Corpuscular Volume 89.5 FL (87-102); Monocytes # 1.1 10*3/uL (0.11-0.8); Monocytes % 9.5 % (1.7-12.7); Neutrophils # 8.1 10*3/uL (1.4-7.4); Neutrophils % 72.9 % (38.7-73.9); Platelet Count 76 T/CUMM (130-400); Red Blood Count 3.63 MC/CUMM (3.8-5.5); Red Cell Distribution Width 14.1 % (9.3-17.3); White Blood Count 11.1 T/CUMM (4-12)
[2017-01-09 05:44] LABS: Albumin 1.6 G/DL (3.4-5.0); Calcium 8.1 MG/DL (8.5-10.1); Phosphorous 2.8 MG/DL (2.5-4.9)
[2017-01-09 05:45] LABS: Osmolality,Calculated 287.3 MOS/KG (273-304)
[2017-01-09 05:54] LABS: Band Neutrophils 1 % (0-10); Lymphocytes 11 % (20-55); Microcytosis 1+; Platelet Estimate Decreased; Segmented Neutrophils 81 % (50-85); Total Cells Counted 100
[2017-01-09] MEDS: INSULIN ASPART PROTAMINE/ASPART 70/30 100 UNIT/ML SUBCUT SCH ×3 (08:31→20:35)
[2017-01-09] MEDS: CHOLECALCIFEROL 1,000 UNIT TABLET PO SCH (08:32)
[2017-01-09] MEDS: CLOPIDOGREL 75 MG TABLET PO SCH (08:33)
[2017-01-09] MEDS: SEVELAMER CARBONATE 800 MG TABLET PO SCH ×3 (08:33→17:09)
[2017-01-09] MEDS: CALCITRIOL 0.25 MCG CAPSULE PO SCH ×2 (08:33→20:31)
[2017-01-09] MEDS: CALCIUM (CARBONATE)/VITAMIN D 600 MG-400 UNIT TABLET PO SCH (08:34)
[2017-01-09] MEDS: LOPERAMIDE 2 MG CAPSULE PO PRN (08:34)
[2017-01-09] MEDS: POTASSIUM CHLORIDE 20 MEQ TABLET PO SCH ×2 (08:34→20:31)
[2017-01-09] MEDS: FLUoxetine 20 MG CAPSULE PO SCH (08:34)
[2017-01-09] MEDS: LACTOBACILLUS RHAMNOSUS GG CAPSULE PO SCH (08:35)
[2017-01-09] MEDS: PANTOPRAZOLE 40 MG TABLET PO SCH (08:35)
[2017-01-09] MEDS: DESITIN 4OZ/NYSTATIN 15 GRAM MIXTURE PASTE TOP SCH ×2 (08:36→20:35)
[2017-01-09] MEDS: INSULIN REGULAR 100 UNIT/ML SUBCUT SCH ×4 (08:37→20:30)
[2017-01-09] MEDS: HEPARIN DRIP 25,000 UNITS/500 ML PREMIX IV SCH ×2 (11:30→18:46)
--- NOTE | 2017-01-09 12:00 | Oncology Progress Note ---
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 - clinically improved - continue with plavix - BP controlled - glucose controlled Current Visit: Yes (2) Swelling of extremity, right Status: Acute Assessment and plan: acute DVT confirmed on doppler - started on heparin infusion - tolerating well - will likely transition to coumadin or eliquis in near future Current Visit: Yes (3) Diarrhea Status: Acute Assessment and plan: - per patient feels related to recent cholecystectomy - will check a C diff prior to further management Current Visit: Yes (4) ESRD (end stage renal disease) Status: Acute Assessment and plan: - appreciated renal assistance with peritoneal dialysis Current Visit: Yes (5) Adenocarcinoma Status: Acute Assessment and plan: - will follow up outpatient for further assessment for chemotherapy Current Visit: Yes Oncology Subjective PN Interval history: 66 year old female with PMHx of adenocarcinoma stage 4 CUP and on peritoneal dialysis admitted for diarrhea and neutropenia. Hospital course complicated by acute CVA and extensive DVT of RUE. Today feels well. Refers continued diarrhea 4-6 loose stools per day. Left sided weakness improved. No bleeding but easy bruising. No fevers. Swelling of RUE decreased. Exam - Constitutional Vitals: Period Temp Pulse Resp BP Sys/Mckeon Pulse Ox Last 24 Hr 96.6 F-97.7 F 71-110 19-20 87-144/52-78 95-97 General appearance: no acute distress - Eye Eye Exam: Present: EOMI - Respiratory Respiratory exam: Present: CTAB - Cardiovascular Cardiovascular exam: Present: RRR - GI/Abdominal GI/Abdominal exam: Present: soft. Absent: ascites, distended, mass, tenderness - Extremities Exam Extremities exam: Absent: edema - Neurological Exam Neurological exam: Present: alert, oriented X3, CN II-XII intact, other (left sided weakness 4/5 upper and lower ext) - Skin Skin exam: Present: warm Results - Labs CBC & BMP: 01/09/17 04:00 01/09/17 04:00
--- NOTE | 2017-01-09 12:43 | Nephrology Progress Note ---
Nephrology - PN: Subj Interval history: Diarrhea persists, jelly like consistency. DVT RUE on heparin gtt. Right arm edema improved. Feels much better. Denies abd pain. Exam (PN)-Nephrology - Vital Signs Vital signs: Period Temp Pulse Resp BP Sys/Mckeon Pulse Ox Last 24 Hr 96.9 F-97.7 F 71-110 19-20 87-138/52-78 95-97 - General Appearance General appearance: well-developed, obese EENT: ATNC, PERRL, mucous membranes moist, hearing intact, vision intact Neck: no JVD, no thyromegaly Respiratory: no kyphosis, clear Cardiology: no murmurs, no rub Gastrointestinal: normoactive bowel sounds, obese Integumentary: rash (purpuric lesion resolving), warm and dry Neurologic: no focal deficit, alert and oriented x3 Musculoskeletal: no deformities, no erythema Psychiatric: mood/affect appropriate, cooperative - Lab 01/09/17 04:00 01/09/17 04:00 Most recent lab results Calcium 8.1 MG/DL (8.5-10.1) L 01/09/17 04:00 Phosphorus 2.8 MG/DL (2.5-4.9) 01/09/17 04:00 Magnesium 2.0 MG/DL (1.8-2.4) 01/07/17 04:15 Assessment and Plan (1) ESRD on peritoneal dialysis Problem details: Continue current exchanges. Potassium stable at 4.0. Status: Acute Current Visit: Yes
[2017-01-10] MEDS ORDERED: PROMETHAZINE 25 MG/1 ML VIAL IV ONE (00:30)
[2017-01-10 04:33] LABS: Basophils # 0.1 10*3/uL (0.0-0.2); Basophils % 0.4 % (0.0-0.8); Eosinophils # 0.1 10*3/uL (0.0-0.87); Eosinophils % 0.5 % (0.00-10.9); Hematocrit 34.8 VOL% (35.7-47.0); Hemoglobin 11.1 GM/DL (12.0-16.0); Immature Granulocytes % 4.9 %; Immature Granulocytes Absolute 0.56 #; Lymphocytes # 1.3 10*3/uL (1.4-4.0); Lymphocytes % 11.1 % (21.3-54.2); Mean Corpuscular HGB Conc 31.9 GM/DL (32-36); Mean Corpuscular Hemoglobin 29 PG (27-34); Mean Corpuscular Volume 92.3 FL (87-102); Mean Platelet Volume 10.5 FL (9.6-12.0); Monocytes # 0.9 10*3/uL (0.11-0.8); Monocytes % 8.2 % (1.7-12.7); Neutrophils # 8.5 10*3/uL (1.4-7.4); Neutrophils % 74.9 % (38.7-73.9); Platelet Count 78 T/CUMM (130-400); Red Blood Count 3.77 MC/CUMM (3.8-5.5); Red Cell Distribution Width 14.4 % (9.3-17.3); White Blood Count 11.4 T/CUMM (4-12)
[2017-01-10 04:53] LABS: Albumin 1.6 G/DL (3.4-5.0); Calcium 8.2 MG/DL (8.5-10.1); Osmolality,Calculated 282.8 MOS/KG (273-304); Phosphorous 3.7 MG/DL (2.5-4.9); Potassium 4.3 MMOL/L (3.5-5.1)
[2017-01-10 05:59] LABS: Band Neutrophils 6 % (0-10); Lymphocytes 11 % (20-55); Myelocytes 2 %; Segmented Neutrophils 80 % (50-85); Total Cells Counted 100
[2017-01-10 06:01] LABS: Anisocytosis 1+; Platelet Estimate Decreased
--- NOTE | 2017-01-10 08:52 | Oncology Progress Note ---
Assessment and Plan (1) Neutropenia Status: Acute Assessment and plan: The patient is covered with antibiotics. We will follow-up blood cultures. I will transfuse 2 units red blood cells today. Dr. Lam is seeing her for continued peritoneal dialysis. She appears stable at this time. 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 Since admission she has had a CVA causing left-sided dysfunction. She is currently on heparin for right upper extremity venous thrombosis that occurred over the weekend. She is receiving physical therapy and we have discussed swing bed placement for later this week. She was previously on Plavix for a CVA from April 2016. Her current issues include nausea vomiting and diarrhea. She has been C. difficile negative on 2 occasions. She has hypoactive bowel sounds on examination and a KUB is ordered. EGD performed 3-4 weeks ago. Colonoscopy approximately 1 year ago. Because of the current GI symptoms and the undiscovered site of origin for her adenocarcinoma, I would like for her to be evaluated by gastroenterology. I have two considerations including small bowel follow-through and/or peel endoscopy Exam - Constitutional Vitals: Period Temp Pulse Resp BP Sys/Mckeon Pulse Ox Last 24 Hr 97.1 F-97.7 F 67-93 15-20 86-141/51-82 94-96 Results - Labs CBC & BMP: 01/10/17 04:00 01/10/17 04:00
--- NOTE | 2017-01-10 09:48 | Gastrointestinal Consult Note ---
Assessment and Plan (1) Abdominal pain Status: Acute Assessment and plan: 5/-6 week history of lower abdominal pain and diarrhea, now with intractable nausea and vomiting 2 weeks. Last EGD 12/13 with findings of hiatal hernia. Last C scope 2015 with findings of diverticulosis. Recent diagnosis of metastatic adenocarcinoma with initiation of chemotherapy 2 weeks ago. Currently on Plavix and heparin infusions for recent CVA/DVT to right upper extremity. Plan an addendum to followed by Dr. Esteves. Current Visit: Yes History of Present Illness Chief complaint: Abdominal pain, nausea vomiting History of present illness: Ms. Tellez is a 66 year old female who was admitted with continued abdominal pain and intractable nausea and vomiting. Patient was recently diagnosed with metastatic adenocarcinoma of undetermined origin. She is followed by Dr. Soares and was started on chemotherapy 2 weeks ago with Taxol and carboplatinum. Patient also underwent a cholecystectomy approximately 6 weeks ago. Prior to her cholecystectomy she had an onset of diarrhea several times a day with episodes of nocturnal defecation and fecal incontinence. She states the stools have been a jellylike substance since this time. She also complains of lower abdominal pain around the same time as the onset of her diarrhea. She has a prior history of cervical cancer in 2007 and is to follow-up with gynecology/ oncology in [place]. Patient also has end-stage renal disease and does peritoneal dialysis. Dr. Hart follows her for this. They have tested her peritoneal fluids with no source at this time for abdominal pain found. She states that since the onset of her chemotherapy 2 weeks ago she developed intractable nausea and vomiting. Every time she tries to eat or drink anything she states that she becomes nauseated and vomits shortly after. Denies any coffee-ground or hematemesis. She denies any melena or hematochezia with her diarrhea. She denies any upper epigastric pain. She underwent an EGD on December [address] Esteves with only findings of hiatal hernia. Her last C scope was in 2015 with findings of diverticulosis. She has a history of a prior CVA 2015 and was placed on Plavix. She also has had a new CVA which MRI revealed acute cerebellar stroke as well as old brainstem strokes. In addition to the S she was also found to have a DVT to her right upper extremity. She has been started on heparin IV stools are negative for CDF at present time. Hemoglobin is holding 11.8 following 2 units of packed red blood cells. Home Medications Medication Instructions Recorded Confirmed Type Fluoxetine HCl [Prozac] 40 mg PO DAILY 05/26/15 01/04/17 History Insulin Aspart Prot/Asp 70/30 6 unit SUBCUT BID 05/26/15 01/04/17 History [NovoLOG Mix 70/30] Cholecalciferol (Vitamin D3) 2,000 unit PO DAILY 06/13/15 01/04/17 History [Vitamin D3] Calcium Carbonate/Vitamin D3 1 each PO DAILY 11/04/15 01/04/17 History [Calcium 1,000 + D3 Caplet] Clopidogrel [Plavix] 75 mg PO DAILY 11/04/15 01/04/17 History Potassium Chloride Cap/Tab [Micro 8 meq PO DAILY 11/04/15 01/04/17 History K] Sevelamer Carbonate Tab [Renvela 800 mg PO TID W/MEALS 11/04/15 01/04/17 History Tab] Calcitriol 0.5 mcg PO BID 09/21/16 01/04/17 History Omeprazole 20 mg PO DAILY 09/21/16 01/04/17 History Tramadol HCl [Tramadol Tab] 50 mg PO Q8H PRN 11/29/16 01/04/17 History Loratadine Tab [Claritin Tab] 10 mg PO QOTHER DAY PRN 01/04/17 01/04/17 History Ondansetron [Ondansetron Odt] 8 mg PO Q8H PRN 01/04/17 01/04/17 History Rosuvastatin Calcium 40 mg PO DAILY 01/04/17 01/04/17 History Allergies Allergy/AdvReac Type Severity Reaction Status Date / Time meperidine [From Demerol] Allergy Severe ANAPHYLAXIS Verified 01/04/17 11:58 Penicillins Allergy Intermediate RASH Verified 01/04/17 11:58 codeine AdvReac Intermediate Nausea Verified 01/04/17 11:58 NSAIDS (Non-Steroidal AdvReac Unknown Unknown/Unable Verified 01/04/17 11:58 Anti-Inflamma to obtain Medical,Surgical,& Family Hx - Medical History Cardio: History of: CAD, Hypertension, [place] (2003), PVD Psychological: History of: Depression Neurology: History of: TIA (spring) No history of: Seizures HEENT: History of: Eye Problem Endocrine: History of: Diabetes Mellitus (IDDM), Dyslipidemia Rheumatology: History of;: Gout Renal: History of: Dialysis (peritoneal dialysis), Renal Failure Comment Only: Renal Problems (PD pt) Genitourinary: History of: Genitourinary Cancer (cervical cancer 2007) Gastrointestinal: History of: GERD, GI Problems (Chronic cholecystitis and cholelithiasis, hiatal hernia) Musculoskeletal: History of: Amputation (2 toes on her right foot) Hematology: History of: Anemia No history of: Blood Transfusion Reaction Reproductive: History of: Reproductive Cancer (cervical) Other: History of: Cancer (adenocarcinoma, DR SOARES TO START CHEMO SOON) No history of: Anesthesia Reactions - Surgical History Cardiac Surgeries: Sugical HX of: Cardiac Catheterization (stents x 2, DR [place] 2003), Vascular Access Devices (MEDIPORT) Patient Denies: Cardiac Surgery Thoracic Surgeries: Patient denies;: Organ Transplant, Lobectomy Neurologic Surgeries: Patient denies: Neurologic Surgery HEENT Surgeries: Surgical HX of: Eye Surgery (cataract), Tonsilectomy & Adenoidectomy Patient denies: Thyroid Surgery Abdominal Surgeries: Surgical HX of: Abdominal Surgery, Appendectomy, Cholecystectomy (November), Colonoscopy, EGD Reproductive Surgeries: Patient denies;: Genitourinary Surgery, Gynecologic Surgery Orthopedic Surgeries: Surgical HX of;: Implanted Devices (mediport right chest) - Family History Family History: Reports;: Family Diabetes (FATHER), Family Heart Disease (FATHER ), Family Hypertension (MOTHER), Family Stroke (STROKE) - Social History Smoking Status: Former smoker Frequency of Alcohol Use: None Type of Drug Use: None 12 point system: reviewed and no additional remarkable complaints except as stated - Constitutional Constitutional: Present: as per HPI, weight loss - EENT Eyes: Present: as per HPI Ears: Present: as per HPI Nose, mouth and throat: Present: as per HPI - Cardiovascular Cardiovascular: Present: as per HPI - Respiratory Respiratory: Present: as per HPI - Gastrointestinal Gastrointestinal: Present: as per HPI, diarrhea, fecal incontinence, nausea, vomiting - Genitourinary Genitourinary: Present: as per HPI - Musculoskeletal Musculoskeletal: Present: as per HPI - Neurological Neurological: Present: as per HPI - Psychiatric Psychiatric: Present: as per HPI - Endocrine Endocrine: Present: as per HPI - Hematologic/Lymphatic Hematologic/Lymphatic: Present: as per HPI Exam - Constitutional Vitals: Period Temp Pulse Resp BP Sys/Mckeon Pulse Ox Last 24 Hr 97.1 F-97.7 F 67-93 15-20 86-141/51-82 94-96 General appearance: normal weight, no acute distress - Head Head exam: Present: normal inspection, normocephalic - Eye Eye exam: Present: other (Lids and conjunctivae unremarkable). Absent: scleral icterus - ENT ENT exam: Present: normal exam, normal oropharynx - Neck Neck exam: Present: normal inspection - Respiratory Respiratory exam: Present: clear to auscultation bilaterally. Absent: rales, rhonchi, wheezes - Cardiovascular Cardiovascular exam: Present: regular rate and rhythm. Absent: diastolic murmur , JVD, systolic murmur - GI/Abdominal GI/Abdominal exam: Present: normal bowel sounds, soft. Absent: ascites, distended, mass, organomegaly, tenderness - Extremities Exam Extremities exam: Present: normal inspection, full ROM - Back Exam Back exam: Present: normal inspection - Neurological Exam Neurological exam: Present: alert, oriented X3 - Psychiatric Psychiatric exam: Present: normal affect, normal mood - Skin Skin exam: Present: normal color, warm, dry Results - Labs CBC & BMP: 01/10/17 04:00 01/10/17 04:00 Lab Results: I have reviewed the past 24 hour labs
--- NOTE | 2017-01-10 09:48 | XRay Report ---
Referring Physician: Jakub Dumont Exam: XR KUB Date: January 10, 2017 at 9:21 AM Reason: Nausea and vomiting Comparison: Abdominal x-rays January 04, 2017 Findings: There is a mildly prominent loop of small bowel within the left abdomen but no evidence of bowel destruction. A catheter projects at the abdomen and may represent a peritoneal dialysis catheter. There are surgical clips within the right upper quadrant, suggesting cholecystectomy. The renal shadows are largely obscured. The osseous structures appear stable. Impression: No acute abdominal process is identified. PROCEDURE INTERPRETED AT [facility] DEPARTMENT OF RADIOLOGY Final Report Signed by: Dr. Pallavi Myrick
[2017-01-10] MEDS: SEVELAMER CARBONATE 800 MG TABLET PO SCH ×3 (10:15→17:12)
[2017-01-10] MEDS: CLOPIDOGREL 75 MG TABLET PO SCH (10:15)
[2017-01-10] MEDS: CALCIUM (CARBONATE)/VITAMIN D 600 MG-400 UNIT TABLET PO SCH (10:15)
[2017-01-10] MEDS: POTASSIUM CHLORIDE 20 MEQ TABLET PO SCH ×2 (10:15→20:52)
[2017-01-10] MEDS: PANTOPRAZOLE 40 MG TABLET PO SCH (10:15)
[2017-01-10] MEDS: FLUoxetine 20 MG CAPSULE PO SCH (10:16)
[2017-01-10] MEDS: INSULIN ASPART PROTAMINE/ASPART 70/30 100 UNIT/ML SUBCUT SCH ×2 (10:16→20:52)
[2017-01-10] MEDS: CHOLECALCIFEROL 1,000 UNIT TABLET PO SCH (10:16)
[2017-01-10] MEDS: CALCITRIOL 0.25 MCG CAPSULE PO SCH ×2 (10:16→20:52)
[2017-01-10] MEDS: LOPERAMIDE 2 MG CAPSULE PO PRN ×2 (10:20→13:14)
[2017-01-10] MEDS: DESITIN 4OZ/NYSTATIN 15 GRAM MIXTURE PASTE TOP SCH ×2 (10:21→20:51)
[2017-01-10] MEDS: INSULIN REGULAR 100 UNIT/ML SUBCUT SCH ×4 (10:21→20:51)
[2017-01-10] MEDS: LACTOBACILLUS RHAMNOSUS GG CAPSULE PO SCH (10:26)
[2017-01-10] MEDS ORDERED: TUBERCULIN SKIN TEST 0.1 ML SYRINGE INTRADERM ONE (10:35)
--- NOTE | 2017-01-10 10:37 | Case Mgmt Physician Query Form ---
TB Signs and Symptoms Screening ([place]) INSTRUCTIONS: To be completed annually on residents/staff with a significant Tuberculin Skin Test (TST) upon admission/hire or a prior significant TST. To be completed on all staff at hire. Please respond to each listed symptom with an (X) in either the "YES" or "NO" box. Do you currently have any of the following symptoms: YES NO ( ) ( x) A cough If yes, is it: ( ) Productive ( ) Non- productive ( ) ( x) Hemoptysis (spitting up blood) ( ) ( x) Chest pains ( ) (x ) Weight Loss ( ) ( x) Fever ( ) ( x) Night Sweats ( ) (x ) Weakness ( ) ( x) Loss of Appetite ( ) ( x) Difficulty Breathing If you answered YES" to any of the above questions, how long have symptoms been present? Comments: KERRY
[2017-01-10] MEDS: HEPARIN DRIP 25,000 UNITS/500 ML PREMIX IV SCH (15:08)
[2017-01-10] MEDS ORDERED: POLYETHYLENE GLYCOL POWDER 255 GM BOTTLE PO ONE (18:00)
--- NOTE | 2017-01-10 23:05 | Nephrology Progress Note ---
Nephrology - PN: Subj Interval history: Since I last saw her, MRI has confirmed new CVA. She is also being treated for DVT right arm. She continues to have nausea and diarrhea. She denies shortness of breath. No abdominal pain today. PD fluid remains clear. Exam (PN)-Nephrology - Vital Signs Vital signs: Period Temp Pulse Resp BP Sys/Mckeon Pulse Ox Last 24 Hr 97.3 F-98.2 F 60-93 19-20 86-139/50-65 94-95 Exam: ENT: Normal Cardiovascular: Regular rate and rhythm. No murmur rub or gallop Lungs: Clear Abdomen: Nontender. PD fluid clear Extremities: 1-2+ edema right arm. No edema lower extremities - Lab 01/10/17 04:00 01/10/17 04:00 Most recent lab results Calcium 8.2 MG/DL (8.5-10.1) L 01/10/17 04:00 Phosphorus 3.7 MG/DL (2.5-4.9) 01/10/17 04:00 Magnesium 2.0 MG/DL (1.8-2.4) 01/07/17 04:15 Assessment and Plan (1) ESRD (end stage renal disease) Status: Acute Assessment and plan: 66-year-old woman admitted with: * ESRD. Continue peritoneal dialysis with 1.5% solution * nausea and diarrhea. Being evaluated by GI * Neutropenia. Resolved * Adenocarcinoma. Primary unknown . Status post 1 course chemotherapy * Diabetes mellitus * Anemia * DVT, right arm. Continue heparin * CVA Current Visit: Yes (2) Adenocarcinoma Status: Acute Current Visit: Yes (3) Neutropenia Status: Acute Current Visit: Yes (4) Anemia Status: Acute Current Visit: No (5) Coronary artery disease Status: Acute Current Visit: No (6) Diabetes Status: Acute Current Visit: No (7) Hypertension Status: Acute Current Visit: Yes
[2017-01-11] MEDS ORDERED: MAGNESIUM CITRATE 300 ML BOTTLE PO ONE ×2 (06:00)
[2017-01-11 06:23] LABS: Basophils # 0.1 10*3/uL (0.0-0.2); Basophils % 0.7 % (0.0-0.8); Eosinophils # 0.1 10*3/uL (0.0-0.87); Eosinophils % 0.6 % (0.00-10.9); Hematocrit 32.8 VOL% (35.7-47.0); Hemoglobin 10.6 GM/DL (12.0-16.0); Immature Granulocytes % 4.3 %; Immature Granulocytes Absolute 0.45 #; Lymphocytes # 1.4 10*3/uL (1.4-4.0); Lymphocytes % 13.7 % (21.3-54.2); Mean Corpuscular HGB Conc 32.3 GM/DL (32-36); Mean Corpuscular Hemoglobin 29 PG (27-34); Mean Corpuscular Volume 90.9 FL (87-102); Mean Platelet Volume 11.2 FL (9.6-12.0); Monocytes # 0.9 10*3/uL (0.11-0.8); Monocytes % 8.3 % (1.7-12.7); Neutrophils # 7.6 10*3/uL (1.4-7.4); Neutrophils % 72.4 % (38.7-73.9); Platelet Count 77 T/CUMM (130-400); Red Blood Count 3.61 MC/CUMM (3.8-5.5); Red Cell Distribution Width 14.6 % (9.3-17.3); White Blood Count 10.4 T/CUMM (4-12)
[2017-01-11 06:48] LABS: Band Neutrophils 2 % (0-10); Burr Cells Slight; Hypochromasia Slight; Lymphocytes 9 % (20-55); Myelocytes 1 %; Platelet Estimate Decreased; Segmented Neutrophils 86 % (50-85); Total Cells Counted 100
[2017-01-11 07:40] LABS: Albumin 1.5 G/DL (3.4-5.0); Calcium 7.7 MG/DL (8.5-10.1); Osmolality,Calculated 287.5 MOS/KG (273-304); Phosphorous 4.4 MG/DL (2.5-4.9); Potassium 3.8 MMOL/L (3.5-5.1)
--- NOTE | 2017-01-11 08:45 | Oncology Progress Note ---
Assessment and Plan (1) Neutropenia Status: Acute Assessment and plan: The patient is covered with antibiotics. We will follow-up blood cultures. I will transfuse 2 units red blood cells today. Dr. Lam is seeing her for continued peritoneal dialysis. She appears stable at this time. Current Visit: Yes Oncology Subjective PN Interval history: Patient stable this morning. Tolerated bowel prep reasonably well with plans for colonoscopy today. Clinical picture concerning for colitis. Gastroenterology note and recommendations reviewed. Hematocrit is stable. Chemistry is notable for decreased albumin. Likely swing bed post discharge. Exam - Constitutional Vitals: Period Temp Pulse Resp BP Sys/Mckeon Pulse Ox Last 24 Hr 97.3 F-97.6 F 73-85 18-20 101-139/50-86 94-96 Results - Labs CBC & BMP: 01/11/17 05:28 01/11/17 05:28
[2017-01-11] MEDS: ONDANSETRON 4 MG/2 ML VIAL IV PRN (08:51)
[2017-01-11] MEDS: INSULIN REGULAR 100 UNIT/ML SUBCUT SCH ×4 (11:19→21:57)
[2017-01-11] MEDS: LACTOBACILLUS RHAMNOSUS GG CAPSULE PO SCH (11:20)
[2017-01-11] MEDS: CALCIUM (CARBONATE)/VITAMIN D 600 MG-400 UNIT TABLET PO SCH (11:20)
[2017-01-11] MEDS: SEVELAMER CARBONATE 800 MG TABLET PO SCH ×3 (11:20→17:53)
[2017-01-11] MEDS: POTASSIUM CHLORIDE 20 MEQ TABLET PO SCH ×2 (11:20→21:55)
[2017-01-11] MEDS: INSULIN ASPART PROTAMINE/ASPART 70/30 100 UNIT/ML SUBCUT SCH ×2 (11:20→21:58)
[2017-01-11] MEDS: CLOPIDOGREL 75 MG TABLET PO SCH (11:21)
[2017-01-11] MEDS: CALCITRIOL 0.25 MCG CAPSULE PO SCH ×2 (11:21→21:54)
[2017-01-11] MEDS: DESITIN 4OZ/NYSTATIN 15 GRAM MIXTURE PASTE TOP SCH ×2 (11:21→22:02)
[2017-01-11] MEDS: FLUoxetine 20 MG CAPSULE PO SCH (11:21)
[2017-01-11] MEDS: PANTOPRAZOLE 40 MG TABLET PO SCH (11:21)
[2017-01-11] MEDS: CHOLECALCIFEROL 1,000 UNIT TABLET PO SCH (11:22)
--- NOTE | 2017-01-11 13:01 | History and Physical Update ---
History and Physical Update - History and Physical H&P was reviewed, the patient examined and there: are no changes in the patients condition since last H&P was completed. - Physical Exam Mental Status: alert and oriented Heart: regular rate and rhythm Lung: clear to auscultation Abdomen: within normal limits Vitals: within normal limits
[2017-01-11] MEDS ORDERED: PROPOFOL 200 MG/20 ML VIAL IV ONE (13:02)
[2017-01-11] MEDS ORDERED: LIDOCAINE 2% 5 ML VIAL ONE (13:02)
[2017-01-11] MEDS ORDERED: ONDANSETRON 4 MG/2 ML VIAL ONE (13:02)
--- NOTE | 2017-01-11 13:19 | Operative Note ---
Date of procedure: 01/11/17 Pre-op diagnosis: Chronic diarrhea Procedure: Procedure note: Colonoscopy with colon biopsies taken Physician: Dr. Amilcar Esteves Brief clinical abstract: Patient is a 66-year-old female who has had chronic diarrhea for over 6 months. She has at least 6-8 stools per day and daily nocturnal episodes which often awaken her from sleep with fecal incontinence. Stool studies have been negative for infectious etiology. Endoscopic findings: After informed consent was obtained, the patient was placed in the left lateral decubitus position. Digital rectal exam was performed with no palpable abnormalities felt. Pediatric videocolonoscope was inserted in the rectum and advanced to the cecum. Terminal ileum was intubated with distal few centimeters visible but I was unable to deeply intubate this but it appeared normal. Withdrawal time was over 6 minutes duration. Bowel prep was of fair quality with some liquid stool scattered throughout the colon most of which we were able to suction. Near the mid transverse colon and extending into the rectum to the dentate line there was near continuous edema with friability and small ulcers. The appearance of this was suggestive of ulcerative colitis. Multiple biopsies were obtained from involved mucosa for pathologic examination. Minimal bleeding was noted. The endoscope was withdrawn in the rectum with retroflex view showing extension of this into the dentate line with no other abnormality seen. The endoscope was removed and she appeared to tolerate the procedure well. Impression: Ulcerative colitis Plan: Empirically start IV Solu-Medrol and follow response to this. Await pathology for confirmation. Anesthesia: MAC Surgeon / Physician: Nahun Esteves Estimated blood loss: minimal Specimens: other (Colon biopsies) Condition: stable Disposition: post procedure unit Results - Labs CBC & BMP: 01/11/17 05:28 01/11/17 05:28 Discharge Plan - Discharge Medications No Action Insulin Aspart Prot/Asp 70/30 [NovoLOG Mix 70/30] 6 unit SUBCUT BID Fluoxetine HCl [Prozac] 40 mg PO DAILY Cholecalciferol (Vitamin D3) [Vitamin D3] 2,000 unit PO DAILY Sevelamer Carbonate Tab [Renvela Tab] 800 mg PO TID W/MEALS Potassium Chloride Cap/Tab [Micro K] 8 meq PO DAILY Calcium Carbonate/Vitamin D3 [Calcium 1,000 + D3 Caplet] 1 each PO DAILY Clopidogrel [Plavix] 75 mg PO DAILY Calcitriol 0.5 mcg PO BID Tramadol HCl [Tramadol Tab] 50 mg PO Q8H PRN PRN Reason: Pain Loratadine Tab [Claritin Tab] 10 mg PO QOTHER DAY PRN PRN Reason: Sinus Symptoms Ondansetron [Ondansetron Odt] 8 mg PO Q8H PRN PRN Reason: Nausea Omeprazole 20 mg PO DAILY Rosuvastatin Calcium 40 mg PO DAILY - Follow Up or Referral - Forms/Instructions Instructions: Ischemic Stroke (DC)
--- NOTE | 2017-01-11 13:23 | Anesthesia Post-Op ---
Anesthesia Post OP - Post Ansesthetic Evaluation Patient seen in post op: Yes Resp: within normal limits CV: within normal limits Mental: within normal limits Temp: within normal limits Dner-Rv-[id number]: within normal limits Nausea and Vomiting: within normal limits Pain: within normal limits
[2017-01-11] MEDS: methylPREDNISolone SOD SUC 40 MG/1 ML VIAL IV SCH ×2 (14:29→21:53)
[2017-01-11] MEDS ORDERED: GLUCAGON 1 MG VIAL IM PRN (14:49)
[2017-01-11] MEDS ORDERED: DEXTROSE 50% 25 GM/50 ML VIAL IV PRN (14:49)
[2017-01-11] MEDS: HEPARIN DRIP 25,000 UNITS/500 ML PREMIX IV SCH (16:18)
[2017-01-11] MEDS ORDERED: DESITIN 4OZ/NYSTATIN 15 GRAM MIXTURE PASTE TOP SCH (21:00)
--- NOTE | 2017-01-11 21:37 | Nephrology Progress Note ---
Nephrology - PN: Subj Interval history: She was seen in the GI lab prior to colonoscopy. No shortness of breath. Still has diarrhea. Exam (PN)-Nephrology - Vital Signs Vital signs: Period Temp Pulse Resp BP Sys/Mckeon Pulse Ox Last 24 Hr 96.0 F-97.6 F 63-85 18-24 80-126/54-80 90-100 Exam: ENT: Normal Cardiovascular: Regular rate and rhythm. No murmur rub or gallop Lungs: Clear Extremities: No edema - Lab 01/11/17 05:28 01/11/17 05:28 Most recent lab results Calcium 7.7 MG/DL (8.5-10.1) L 01/11/17 05:28 Phosphorus 4.4 MG/DL (2.5-4.9) 01/11/17 05:28 Magnesium 2.0 MG/DL (1.8-2.4) 01/07/17 04:15 Assessment and Plan (1) ESRD (end stage renal disease) Status: Acute Assessment and plan: 66-year-old woman admitted with: * ESRD. Continue peritoneal dialysis with 1.5% solution * nausea and diarrhea. Colonoscopy today * Neutropenia. Resolved * Adenocarcinoma. Primary unknown . Status post 1 course chemotherapy * Diabetes mellitus * Anemia * DVT, right arm. Continue heparin * CVA Current Visit: Yes (2) Adenocarcinoma Status: Acute Current Visit: Yes (3) Neutropenia Status: Acute Current Visit: Yes (4) Anemia Status: Acute Current Visit: No (5) Coronary artery disease Status: Acute Current Visit: No (6) Diabetes Status: Acute Current Visit: No (7) Hypertension Status: Acute Current Visit: Yes Specialty Discharge - Follow Up or Referrals
[2017-01-12] MEDS: methylPREDNISolone SOD SUC 40 MG/1 ML VIAL IV SCH ×3 (07:06→21:08)
[2017-01-12] MEDS: HEPARIN DRIP 25,000 UNITS/500 ML PREMIX IV SCH ×2 (07:43→12:51)
[2017-01-12] MEDS: INSULIN ASPART PROTAMINE/ASPART 70/30 100 UNIT/ML SUBCUT SCH ×2 (08:37→21:09)
[2017-01-12] MEDS: CALCITRIOL 0.25 MCG CAPSULE PO SCH ×2 (08:37→21:08)
[2017-01-12] MEDS: LACTOBACILLUS RHAMNOSUS GG CAPSULE PO SCH (08:37)
[2017-01-12] MEDS: INSULIN REGULAR 100 UNIT/ML SUBCUT SCH ×4 (08:37→21:09)
[2017-01-12] MEDS: SEVELAMER CARBONATE 800 MG TABLET PO SCH ×3 (08:37→17:00)
[2017-01-12] MEDS: FLUoxetine 20 MG CAPSULE PO SCH (08:37)
[2017-01-12] MEDS: CALCIUM (CARBONATE)/VITAMIN D 600 MG-400 UNIT TABLET PO SCH (08:37)
[2017-01-12] MEDS: PANTOPRAZOLE 40 MG TABLET PO SCH (08:37)
[2017-01-12] MEDS: POTASSIUM CHLORIDE 20 MEQ TABLET PO SCH ×2 (08:37→21:08)
[2017-01-12] MEDS: CHOLECALCIFEROL 1,000 UNIT TABLET PO SCH (08:37)
[2017-01-12] MEDS: CLOPIDOGREL 75 MG TABLET PO SCH (08:38)
--- NOTE | 2017-01-12 09:15 | Oncology Progress Note ---
Assessment and Plan (1) Neutropenia Status: Acute Assessment and plan: The patient is covered with antibiotics. We will follow-up blood cultures. I will transfuse 2 units red blood cells today. Dr. Lam is seeing her for continued peritoneal dialysis. She appears stable at this time. Current Visit: Yes Oncology Subjective PN Interval history: Colonoscopy noted with probable ulcerative colitis. Patient started on steroids and symptoms are improved today. I am planning for hospital discharge tomorrow with swing bed if possible. She at this point she remains on heparin for a right upper extremity venous thrombosis. She is also on Plavix for history of CVA 2 including one event during this hospitalization. She is stable and nontoxic this morning. Her next chemotherapy is scheduled for Tuesday though she still has some degree of thrombocytopenia at present. I will repeat her CBC tomorrow. Warfarin 3 mg at bedtime is to begin this evening Exam - Constitutional Vitals: Period Temp Pulse Resp BP Sys/Mckeon Pulse Ox Last 24 Hr 96.9 F-97.9 F 64-89 18-24 80-119/52-62 90-100 Results - Labs CBC & BMP: 01/11/17 05:28 01/11/17 05:28 Specialty Discharge - Follow Up or Referrals
--- NOTE | 2017-01-12 09:24 | Gastrointestinal Progress Note ---
Assessment and Plan (1) Abdominal pain Status: Acute Assessment and plan: 01/12-colonoscopy report noted with findings of ulcerative colitis with pathology pending. Improvement in diarrhea with one episode today. Appetite increasing. Tolerating IV steroids. Plan an addendum to followed by Dr. Esteves. 01/10-6 week history of lower abdominal pain and diarrhea, now with intractable nausea and vomiting 2 weeks. Last EGD 12/13 with findings of hiatal hernia. Last C scope 2015 with findings of diverticulosis. Recent diagnosis of metastatic adenocarcinoma with initiation of chemotherapy 2 weeks ago. Currently on Plavix and heparin infusions for recent CVA/DVT to right upper extremity. Plan an addendum to followed by Dr. Esteves. Current Visit: Yes Gastroenterology - PN: Subj Interval history: CC: Diarrhea Pt is seen, awake and alert, with nurse at side. Pt states that she is feeling some better at this time. She ate a solid diet and tolerated this well with increase in her appetite. She denies any abdominal pain, nausea or vomiting. Pt has had one episode of loose, mucous stool this morning but no bleeding reported. She is afebrile. Plans noted for possible transfer to swing bed on tomorrow if pt remains table. Abdomen is soft, nontender. ROS: Denies SOB or chest pain Exam (Progress Note) - Constitutional Vitals: Period Temp Pulse Resp BP Sys/Mckeon Pulse Ox Last 24 Hr 96.9 F-97.9 F 64-89 18-24 80-119/52-62 90-100 General appearance: normal weight, no acute distress - Head Head exam: Present: normal inspection, normocephalic - Eye Eye exam: Present: other (lids and conjunctiva unremarkable). Absent: scleral icterus - ENT ENT exam: Present: normal exam, normal oropharynx - Neck Neck exam: Present: normal inspection - Respiratory Respiratory exam: Present: clear to auscultation bilaterally. Absent: rales, rhonchi, wheezes - Cardiovascular Cardiovascular exam: Present: regular rate and rhythm. Absent: diastolic murmur , JVD, systolic murmur - GI/Abdominal GI/Abdominal exam: Present: normal bowel sounds, soft. Absent: ascites, distended, mass, organomegaly, tenderness - Extremities Exam Extremities exam: Present: normal inspection, full ROM - Back Exam Back exam: Present: normal inspection - Neurological Exam Neurological exam: Present: alert, oriented X3 - Psychiatric Psychiatric exam: Present: normal affect, normal mood - Skin Skin exam: Present: normal color, warm, dry Results - Labs CBC & BMP: 01/11/17 05:28 01/11/17 05:28 Lab Results: I have reviewed the past 24 hour labs Specialty Discharge - Follow Up or Referrals
[2017-01-12 11:08] LABS: INR 1.1; PT Patient Result 11.4 SECS
[2017-01-12 11:17] LABS: Partial Thromboplastin Time 66.5 SECS (0-40)
[2017-01-12] MEDS: DESITIN 4OZ/NYSTATIN 15 GRAM MIXTURE PASTE TOP SCH ×2 (12:26→21:13)
--- NOTE | 2017-01-12 15:16 | Pathology Report from [facility] ---
ACCESSION # : [id number] PATIENT NAME : Javier Tellez ORDERING DR : DARIEN KRUGER MD CLINICAL HX: Abd pain, N/V, diarrhea POST-OP DX: Same SPECIMEN INFO: Random colon BXS GROSS DESCRIPTION: The specimen is received in formalin labeled with the patient 's name and consists of a 0.6 x 0.4 cm aggregate of reardon tissue. Submitted in one cassette. DIAGNOSIS FOR JAVIER TELLEZ: RANDOM COLON BIOPSIES: Superficial chronic inflammation, benign lymphoid aggregates, focal superficial neutrophilic debris. No evidence of inflammatory bowel disease, lymphocytic/collagenous colitis, ischemic changes, pseudomembrane, or malignancy. Tryptase stain negative. Most consistent with self-limited colitis. SERVICE DATE: 01/11/2017 REPORT DATE: 01/12/2017 PATHOLOGIST: Mohamud Mike M.D. [facility]
[2017-01-12] MEDS: WARFARIN 3 MG TABLET PO SCH (17:57)
--- NOTE | 2017-01-12 23:30 | Nephrology Progress Note ---
Nephrology - PN: Subj Interval history: She feels much better overall. Diarrhea has markedly decreased. No shortness of breath. No problems with PD exchanges. Fluid remains clear Exam (PN)-Nephrology - Vital Signs Vital signs: Period Temp Pulse Resp BP Sys/Mckeon Pulse Ox Last 24 Hr 96.5 F-97.8 F 56-86 18-20 96-136/52-60 94-98 Exam: ENT: Normal Cardiovascular: Regular rate and rhythm. No murmur rub or gallop Lungs: Clear Extremities: No edema - Lab 01/11/17 05:28 01/11/17 05:28 Most recent lab results Calcium 7.7 MG/DL (8.5-10.1) L 01/11/17 05:28 Phosphorus 4.4 MG/DL (2.5-4.9) 01/11/17 05:28 Magnesium 2.0 MG/DL (1.8-2.4) 01/07/17 04:15 Assessment and Plan (1) ESRD (end stage renal disease) Status: Acute Assessment and plan: 66-year-old woman admitted with: * ESRD. Continue peritoneal dialysis with 1.5% solution * Colitis. Improved with prednisone * Neutropenia. Resolved * Adenocarcinoma. Primary unknown . Status post 1 course chemotherapy * Diabetes mellitus * Anemia * DVT, right arm. Continue heparin. Coumadin started * CVA Current Visit: Yes (2) Adenocarcinoma Status: Acute Current Visit: Yes (3) Neutropenia Status: Acute Current Visit: Yes (4) Anemia Status: Acute Current Visit: No (5) Coronary artery disease Status: Acute Current Visit: No (6) Diabetes Status: Acute Current Visit: No (7) Hypertension Status: Acute Current Visit: Yes Specialty Discharge - Follow Up or Referrals
[2017-01-13 04:50] LABS: Basophils % 0.1 % (0.0-0.8); Hematocrit 30.3 VOL% (35.7-47.0); Hemoglobin 9.8 GM/DL (12.0-16.0); Immature Granulocytes % 1.9 %; Immature Granulocytes Absolute 0.17 #; Lymphocytes # 0.7 10*3/uL (1.4-4.0); Lymphocytes % 7.5 % (21.3-54.2); Mean Corpuscular HGB Conc 32.3 GM/DL (32-36); Mean Corpuscular Hemoglobin 30 PG (27-34); Mean Corpuscular Volume 91.5 FL (87-102); Mean Platelet Volume 11.2 FL (9.6-12.0); Monocytes # 0.2 10*3/uL (0.11-0.8); Monocytes % 1.8 % (1.7-12.7); Neutrophils # 7.8 10*3/uL (1.4-7.4); Neutrophils % 88.7 % (38.7-73.9); Red Blood Count 3.31 MC/CUMM (3.8-5.5); Red Cell Distribution Width 14.4 % (9.3-17.3); White Blood Count 8.8 T/CUMM (4-12)
[2017-01-13 04:53] LABS: Platelet Count 69 T/CUMM (130-400)
[2017-01-13] MEDS: methylPREDNISolone SOD SUC 40 MG/1 ML VIAL IV SCH ×2 (05:33→12:38)
[2017-01-13 05:36] LABS: Lymphocytes 5 % (20-55); Metamyelocytes 1 %; Segmented Neutrophils 94 % (50-85)
[2017-01-13 05:38] LABS: Platelet Estimate Decreased; Total Cells Counted 100
[2017-01-13] MEDS: HEPARIN DRIP 25,000 UNITS/500 ML PREMIX IV SCH (07:36)
--- NOTE | 2017-01-13 07:52 | Discharge Summary ---
Hospital Course - Hospital Course Hospital Course: Patient with adenocarcinoma metastatic of unknown primary admitted with neutropenia. Negative infectious workup including peritoneal fluid studies. White count has responded well to few doses of granulocyte colony-stimulating factor. We have continued peritoneal dialysis. We have continued to treat her diabetes hypertension and dyslipidemia. The patient reported left hand weakness while hospitalized an MRI showed findings consistent with acute infarction. The patient is already receiving aspirin and Plavix from [facility] April 2016. Around that same time she developed right arm edema with venous thrombosis confirmed. She has received several days of IV heparin. This will be discontinued today due to falling platelet count of 66,000. The patient declines novel anticoagulants and desires warfarin therapy. This was initiated on January 12 at 3 mg p.o. at bedtime. This will be continued as a single agent without additional Lovenox or heparin. She is scheduled for discharge today to [facility] rehab. She also reported a several month history of diarrhea and colonoscopy was performed with results consistent with ulcerative colitis. She was given IV steroids and has responded immediately. She will be continued on prednisone 40 mg daily 4 then 20 mg daily for the short-term. Her oncology follow-up is postponed until January 24 with plans for second chemotherapy at that time. Diagnosis - Discharge Diagnosis (1) Neutropenia Status: Acute Specialty Discharge - Follow Up or Referrals Discharge Plan - Discharge Medications New Warfarin [Coumadin] 3 mg PO DAILY@1800 tablet Continue Insulin Aspart Prot/Asp 70/30 [NovoLOG Mix 70/30] 6 unit SUBCUT BID Fluoxetine HCl [Prozac] 40 mg PO DAILY Cholecalciferol (Vitamin D3) [Vitamin D3] 2,000 unit PO DAILY Sevelamer Carbonate Tab [Renvela Tab] 800 mg PO TID W/MEALS Potassium Chloride Cap/Tab [Micro K] 8 meq PO DAILY Calcium Carbonate/Vitamin D3 [Calcium 1,000 + D3 Caplet] 1 each PO DAILY Clopidogrel [Plavix] 75 mg PO DAILY Calcitriol 0.5 mcg PO BID Tramadol HCl [Tramadol Tab] 50 mg PO Q8H PRN PRN Reason: Pain Loratadine Tab [Claritin Tab] 10 mg PO QOTHER DAY PRN PRN Reason: Sinus Symptoms Ondansetron [Ondansetron Odt] 8 mg PO Q8H PRN PRN Reason: Nausea Omeprazole 20 mg PO DAILY Rosuvastatin Calcium 40 mg PO DAILY - Follow Up or Referral - Forms/Instructions Instructions: Ischemic Stroke (DC) Exam - Constitutional Vitals: Period Temp Pulse Resp BP Sys/Mckeon Pulse Ox Last 24 Hr 96.5 F-97.6 F 55-63 18-20 111-136/56-71 95-98 Discharge Results Procedures and tests throughout hospitalization: Pending Orders 01/13/17 13:00 PTT [Partial Thromboplastin Time] Routine Labs on day of discharge: Labs from last 24 hours 01/13/17 01/13/17 01/13/17 07:22 03:48 03:48 WBC 8.8 RBC 3.31 L Hgb 9.8 L Hct 30.3 L MCV 91.5 MCH 30 MCHC 32.3 RDW 14.4 Plt Count 69 L MPV 11.2 Neut % (Auto) 88.7 H Lymph % (Auto) 7.5 L Hamblen % (Auto) 1.8 Eos % (Auto) 0.0 Baso % (Auto) 0.1 Neut # (Auto) 7.8 H Lymph # (Auto) 0.7 L Hamblen # (Auto) 0.2 Eos # (Auto) 0.0 Baso # (Auto) 0.0 Total Counted 100 Immature Gran % 1.9 Nucleated RBC % 0.0 Immature Gran # 0.17 Segmented Neutrophils 94 H Lymphocytes 5 L Metamyelocytes 1 Nucleated RBCs # 0.00 Platelet Estimate Decreased INR PT Patient/Control Mix Circ Anticoag PTT 87.2 H D POC Glucose 198 H 01/12/17 01/12/17 01/12/17 19:04 16:44 16:31 WBC RBC Hgb Hct MCV MCH MCHC RDW Plt Count MPV Neut % (Auto) Lymph % (Auto) Hamblen % (Auto) Eos % (Auto) Baso % (Auto) Neut # (Auto) Lymph # (Auto) Hamblen # (Auto) Eos # (Auto) Baso # (Auto) Total Counted Immature Gran % Nucleated RBC % Immature Gran # Segmented Neutrophils Lymphocytes Metamyelocytes Nucleated RBCs # Platelet Estimate INR PT Patient/Control Mix Circ Anticoag PTT 69.9 H POC Glucose 210 H 138 H 01/12/17 01/12/17 11:08 10:41 WBC RBC Hgb Hct MCV MCH MCHC RDW Plt Count MPV Neut % (Auto) Lymph % (Auto) Hamblen % (Auto) Eos % (Auto) Baso % (Auto) Neut # (Auto) Lymph # (Auto) Hamblen # (Auto) Eos # (Auto) Baso # (Auto) Total Counted Immature Gran % Nucleated RBC % Immature Gran # Segmented Neutrophils Lymphocytes Metamyelocytes Nucleated RBCs # Platelet Estimate INR 1.1 PT Patient/Control Mix 11.4 Circ Anticoag PTT 66.5 H D POC Glucose 168 H DS: Provider Date of admission: 01/05/17 10:21 Primary care physician: Amos Duarte MD Attending physician on admission: Jakub Dumont MD Consults: 01/10/17 08:53 Consult to Physician [CONS] Routine Comment: Consult Dr. Esteves for small bowel evaluation Consulting Provider: Nahun Esteves Consulting Provider Notified: Yes When should Consulting Provider be notified: Now Consult to Specialist Group: Cardiology When should Consulting Provider be notified: Now Person Notified: CAROLA Date Notified: 01/10/17 Time Notified: 09:56 01/10/17 10:33 Consult to Case Mgmt/Social Srvs [CONS] Routine Reason for Case Mgmt/Social Srvs: Swingbed/SNF/Group Home Discharging clinician: Jakub Dumont MD
[2017-01-13] MEDS: LACTOBACILLUS RHAMNOSUS GG CAPSULE PO SCH (09:05)
[2017-01-13] MEDS: INSULIN ASPART PROTAMINE/ASPART 70/30 100 UNIT/ML SUBCUT SCH ×2 (09:05→21:29)
[2017-01-13] MEDS: INSULIN REGULAR 100 UNIT/ML SUBCUT SCH ×4 (09:05→21:29)
[2017-01-13] MEDS: POTASSIUM CHLORIDE 20 MEQ TABLET PO SCH ×2 (09:05→21:28)
[2017-01-13] MEDS: CALCIUM (CARBONATE)/VITAMIN D 600 MG-400 UNIT TABLET PO SCH (09:05)
[2017-01-13] MEDS: DESITIN 4OZ/NYSTATIN 15 GRAM MIXTURE PASTE TOP SCH ×2 (09:06→21:32)
[2017-01-13] MEDS: CHOLECALCIFEROL 1,000 UNIT TABLET PO SCH (09:06)
[2017-01-13] MEDS: FLUoxetine 20 MG CAPSULE PO SCH (09:06)
[2017-01-13] MEDS: CLOPIDOGREL 75 MG TABLET PO SCH (09:06)
[2017-01-13] MEDS: SEVELAMER CARBONATE 800 MG TABLET PO SCH ×3 (09:06→18:28)
[2017-01-13] MEDS: CALCITRIOL 0.25 MCG CAPSULE PO SCH ×2 (09:06→21:28)
[2017-01-13] MEDS: PANTOPRAZOLE 40 MG TABLET PO SCH (09:06)
--- NOTE | 2017-01-13 15:07 | Gastrointestinal Progress Note ---
Assessment and Plan (1) Abdominal pain Status: Acute Assessment and plan: 01/13-pathology report returned as self-limited colitis. Continue prednisone 40 mg daily until follow-up appointment in [address] Esteves. Prescription electronically transmitted to patient's pharmacy. Plan an addendum to followed by Dr. Esteves. 01/12-colonoscopy report noted with findings of ulcerative colitis with pathology pending. Improvement in diarrhea with one episode today. Appetite increasing. Tolerating IV steroids. Plan an addendum to followed by Dr. Esteves. 01/10-6 week history of lower abdominal pain and diarrhea, now with intractable nausea and vomiting 2 weeks. Last EGD 12/13 with findings of hiatal hernia. Last C scope 2015 with findings of diverticulosis. Recent diagnosis of metastatic adenocarcinoma with initiation of chemotherapy 2 weeks ago. Currently on Plavix and heparin infusions for recent CVA/DVT to right upper extremity. Plan an addendum to followed by Dr. Esteves. Current Visit: Yes Gastroenterology - PN: Subj Interval history: CC: diarrhea Patient is seen awake and alert sitting up in chair. States she is feeling much better today. She was for discharge to rehab today however they were notified at this time she does not qualify for inpatient therapy. Patient has been working with physical therapy and has had a couple of near falls and is afraid to go home alone at this time. She states that she is eating a little more each meal and she is having only one diarrhea stool a day, which still contains a good bit of mucus but denies any bleeding. She states also she is no longer having bowel movements immediately after she eats. Denies nausea or vomiting. Patient's pathology report was returned showing self-limited colitis. She will remain on oral steroids until she follows it with Dr. Esteves in 6 weeks. Abdomen is soft, nontender. ROS: Denies shortness of breath or chest pain Exam (Progress Note) - Constitutional Vitals: Period Temp Pulse Resp BP Sys/Mckeon Pulse Ox Last 24 Hr 96 F-97.6 F 50-108 18-20 111-156/56-75 94-97 General appearance: normal weight, no acute distress - Head Head exam: Present: normal inspection, normocephalic - Eye Eye exam: Present: other (Lids and conjunctive are unremarkable). Absent: scleral icterus - ENT ENT exam: Present: normal exam, normal oropharynx - Neck Neck exam: Present: normal inspection - Respiratory Respiratory exam: Present: clear to auscultation bilaterally. Absent: rales, rhonchi, wheezes - Cardiovascular Cardiovascular exam: Present: regular rate and rhythm. Absent: diastolic murmur , JVD, systolic murmur - GI/Abdominal GI/Abdominal exam: Present: normal bowel sounds, soft. Absent: ascites, distended, mass, organomegaly, tenderness - Extremities Exam Extremities exam: Present: normal inspection, full ROM - Back Exam Back exam: Present: normal inspection - Neurological Exam Neurological exam: Present: alert, oriented X3 - Psychiatric Psychiatric exam: Present: normal affect, normal mood - Skin Skin exam: Present: normal color, warm, dry Results - Labs CBC & BMP: 01/13/17 03:48 01/11/17 05:28 Lab Results: I have reviewed the past 24 hour labs Specialty Discharge - Follow Up or Referrals Follow up with: Nahun Esteves MD [Physician] - 02/23/17 2:30 pm Jakub Dumont MD [Physician] - 01/24/17 8:00 am
--- NOTE | 2017-01-13 18:19 | Nephrology Progress Note ---
Nephrology - PN: Subj Interval history: She feels better overall today. No abdominal pain or nausea. Diarrhea much improved. No problems with PD exchanges Exam (PN)-Nephrology - Vital Signs Vital signs: Period Temp Pulse Resp BP Sys/Mckeon Pulse Ox Last 24 Hr 96 F-97.6 F 50-108 18-20 111-156/56-75 94-97 Exam: ENT: Normal Cardiovascular: Regular rate and rhythm. No murmur rub or gallop Lungs: Clear Abdomen: Nontender. PD fluid clear Extremities: No edema - Lab 01/13/17 03:48 01/11/17 05:28 Most recent lab results Calcium 7.7 MG/DL (8.5-10.1) L 01/11/17 05:28 Phosphorus 4.4 MG/DL (2.5-4.9) 01/11/17 05:28 Magnesium 2.0 MG/DL (1.8-2.4) 01/07/17 04:15 Assessment and Plan (1) ESRD (end stage renal disease) Status: Acute Assessment and plan: 66-year-old woman admitted with: * ESRD. Continue peritoneal dialysis with 1.5% solution * Colitis. Improved with prednisone * Neutropenia. Resolved * Adenocarcinoma. Primary unknown . Status post 1 course chemotherapy * Diabetes mellitus * Anemia * DVT, right arm. Continue heparin. Coumadin started * CVA Current Visit: Yes (2) Adenocarcinoma Status: Acute Current Visit: Yes (3) Neutropenia Status: Acute Current Visit: Yes (4) Anemia Status: Acute Current Visit: No (5) Coronary artery disease Status: Acute Current Visit: No (6) Diabetes Status: Acute Current Visit: No (7) Hypertension Status: Acute Current Visit: Yes Specialty Discharge - Follow Up or Referrals Follow up with: Nahun Esteves MD [Physician] - 02/23/17 2:30 pm Jakub Dumont MD [Physician] - 01/24/17 8:00 am
[2017-01-13] MEDS: WARFARIN 3 MG TABLET PO SCH (18:28)
[2017-01-14 08:06] VITALS: BP 115/56
[2017-01-14] MEDS: INSULIN REGULAR 100 UNIT/ML SUBCUT SCH (08:16)
[2017-01-14] MEDS ORDERED: predniSONE 20 MG TABLET PO SCH (09:00)
[2017-01-14] MEDS: FLUoxetine 20 MG CAPSULE PO SCH (09:01)
[2017-01-14] MEDS: SEVELAMER CARBONATE 800 MG TABLET PO SCH (09:02)
[2017-01-14] MEDS: CHOLECALCIFEROL 1,000 UNIT TABLET PO SCH (09:03)
[2017-01-14] MEDS: POTASSIUM CHLORIDE 20 MEQ TABLET PO SCH (09:04)
[2017-01-14] MEDS: PANTOPRAZOLE 40 MG TABLET PO SCH (09:10)
[2017-01-14] MEDS: CALCITRIOL 0.25 MCG CAPSULE PO SCH (09:11)
[2017-01-14] MEDS: LACTOBACILLUS RHAMNOSUS GG CAPSULE PO SCH (09:11)
[2017-01-14] MEDS: CLOPIDOGREL 75 MG TABLET PO SCH (09:12)
[2017-01-14] MEDS: CALCIUM (CARBONATE)/VITAMIN D 600 MG-400 UNIT TABLET PO SCH (09:12)
[2017-01-14] MEDS: INSULIN ASPART PROTAMINE/ASPART 70/30 100 UNIT/ML SUBCUT SCH (09:14)
[2017-01-14] MEDS: DESITIN 4OZ/NYSTATIN 15 GRAM MIXTURE PASTE TOP SCH (09:14)
--- NOTE | 2017-01-14 09:43 | Event Note ---
Patient remained stable overnight. She was discharged yesterday but not accepted for rehab. On discussion with the patient this morning she desires to go home. I have outpatient follow-up arranged in 5 days. She will receive home health with warfarin monitoring in 3 days from today she will also receive physical therapy. Medication list unchanged from yesterday. I did review her gastrointestinal pathology with the diagnosis given of self-limiting colitis
[2017-01-14] MEDS ORDERED: HEPARIN LOCK FLUSH 500 UNIT/5 ML SYRINGE IV ONE (10:17)
--- NOTE | 2017-01-14 23:36 | Nephrology Progress Note ---
Nephrology - PN: Subj Interval history: No shortness of breath or abdominal pain. Diarrhea resolved. Exam (PN)-Nephrology - Vital Signs Vital signs: Period Temp Pulse Resp BP Sys/Mckeon Pulse Ox Last 24 Hr 96.4 F-97.1 F 53-64 18-20 115-144/56-67 97-99 Exam: ENT: Normal Cardiovascular: Regular rate and rhythm. No murmur rub or gallop Lungs: Clear Abdomen: Nontender. PD fluid clear Extremities: No edema - Lab 01/13/17 03:48 01/11/17 05:28 Most recent lab results Calcium 7.7 MG/DL (8.5-10.1) L 01/11/17 05:28 Phosphorus 4.4 MG/DL (2.5-4.9) 01/11/17 05:28 Magnesium 2.0 MG/DL (1.8-2.4) 01/07/17 04:15 Assessment and Plan (1) ESRD (end stage renal disease) Status: Acute Assessment and plan: 66-year-old woman admitted with: * ESRD. Continue peritoneal dialysis with 1.5% solution * Colitis. Improved with prednisone * Neutropenia. Resolved * Adenocarcinoma. Primary unknown . Status post 1 course chemotherapy * Diabetes mellitus * Anemia * DVT, right arm. Continue heparin. Coumadin started * CVA (2) Adenocarcinoma Status: Acute (3) Neutropenia Status: Acute (4) Anemia Status: Acute (5) Coronary artery disease Status: Acute (6) Diabetes Status: Acute (7) Hypertension Status: Acute Specialty Discharge - Follow Up or Referrals Follow up with: Nahun Esteves MD [Physician] - 02/23/17 2:30 pm Jakub Soares MD [Physician] - 01/19/17 9:10 am (APPT FOR IS ON January AT 910AM FOR LAB AND TO SEE DR SOARES AT 950AM)
--- NOTE | 2017-01-19 18:05 | Physician Query Form ---
CLICK EDIT DOCUMENT TO SELECT QUERY ANSWER --> OK --> SIGN Mohini Chau RN Clinical Family Life Educator W) [phone] (f) [phone] [email or web address] PROVIDERS: Make your selection(s) from the choices in EACH section by typing an "x" and enter comments in the comment section. Please use your independent medical judgment in providing your response. This request does not imply that any particular answer is desired or expected. CLINICAL INDICATORS: (Providers should not edit this section) Based on documentation of "admitted with neutropenia" "On evaluation yesterday in the emergency room she was afebrile but did have evidence of neutropenia anemia and thrombocytopenia." "Chemotherapy was given last week with Taxol and carboplatinum" Treated with 2units PRBC and Neupogen. Based on the above, could you clarify the appropriate diagnosis, if significant , that supports the above abnormalities and additional evaluation, monitoring, and/or treatment rendered: (x ) Treated for chemo induced pancytopenia ( ) Was NOT treated for chemo induced pancytopenia ( ) Other, please specify: ( ) Clinically unable to determine COMMENTS: Use of terms such as suspected, likely, or probable (associated with a specific diagnosis that is being evaluated, monitored, or treated as if it exists) are acceptable and can be restated in the discharge summary if not ruled out. MTDD
== END 2017-01-14 10:40 | disposition home health service (06) | DRG 808 ==
LOC: EDUNIT# → EDBD → N.ED 11:47 → N.EDINP 11:47 → N.4E 14:04
PROVIDERS: ADMIT Specialist; ATTEND Specialist
PROC: COLONBX (2017-01-11 12:35)

== ENCOUNTER 2017-01-27 12:18 | Inpatient (IN) ==
--- NOTE | 2017-01-27 13:04 | XRay Report ---
Exam: XR chest 1V portable Date: 01/27/2017 12:47 PM Indication: Hypotension Comparison: 01/04/2017 Technical: AP portable Findings: Right-sided subclavian port catheter is present with distal tip in the superior vena cava. Cardiomegaly present with ASVD. Oxygen tubing external cardiac leads are present. ASVD is present. Patchy interstitial densities in both bases. Mediastinum is intact. ASVD is present. Impression: 1. Cardiomegaly 2. Stable position of port catheter 3. Minimal atelectatic change in the bases bilaterally PROCEDURE INTERPRETED AT [facility] DEPARTMENT OF RADIOLOGY Final Report Signed by: Dr. Nahun Scruggs
[2017-01-27 13:31] LABS: Basophils % 0.1 % (0.0-0.8); Eosinophils % 0.1 % (0.00-10.9); Hematocrit 20.3 VOL% (35.7-47.0); Hemoglobin 6.9 GM/DL (12.0-16.0); Immature Granulocytes % 10.5 %; Immature Granulocytes Absolute 0.73 #; Lymphocytes # 0.4 10*3/uL (1.4-4.0); Lymphocytes % 6.3 % (21.3-54.2); Mean Corpuscular Hemoglobin 31 PG (27-34); Mean Corpuscular Volume 90.2 FL (87-102); Mean Platelet Volume 10.8 FL (9.6-12.0); Monocytes # 0.6 10*3/uL (0.11-0.8); Monocytes % 8.5 % (1.7-12.7); Neutrophils # 5.2 10*3/uL (1.4-7.4); Neutrophils % 74.5 % (38.7-73.9); Platelet Count 107 T/CUMM (130-400); Red Blood Count 2.25 MC/CUMM (3.8-5.5); Red Cell Distribution Width 15.4 % (9.3-17.3)
--- NOTE | 2017-01-27 13:38 | Emergency Department Note ---
Eligio Houser Gwan, am scribing for, and in the presence of, Marcus Kate MD 12:55 . Lavinia Houser James D, MD, personally performed the services described in this documentation, ascribed by Jay Del Valle in my presence, and it is both accurate and complete 335 . Arrival - Arrival Chief Complaint: Blood Pressure Stated Complaint: Blood Pressure ED Nursing Triage Note: pt called ems with N/V/D starting yesterday. On arrival to pts house ems vitals were stable, en-route bp and O2 sats dropped. Mode of Arrival: Stretcher Limitations: No Limitations Source: Patient, Old Records Reviewed, RN Notes Reviewed - History of Present Illness HPI Narrative: Patient is a 66 y/o female, with a hx of undetermined Carcinoma and NIDDM,, who presents to the ED via EMS with a c/o N/V/D with an onset yesterday. EMS reports that after they arrived at pt's home, her BP and O2 levels dropped. At time of triage, pt's BP was 72/35. Patient confirmed that she was hospitalized from 08 January-14 January due to same sxs. She confirmed that since onset she has vomited 8-9 times, that she does Peritoneal Dialysis at home since July 2015 and that she dialyzed yesterday. Patient denies any fever, chills or abd pain. Patient is followed by Dr. Soares, Dr. Hendrickson and Dr. Lam. Onset (ago): day(s) Consistency: constant Severity: moderate Allergies/Adverse Reactions: Allergies Allergy/AdvReac Type Severity Reaction Status Date / Time meperidine [From Demerol] Allergy Severe ANAPHYLAXIS Verified 01/04/17 11:58 Penicillins Allergy Intermediate RASH Verified 01/04/17 11:58 codeine AdvReac Intermediate Nausea Verified 01/04/17 11:58 NSAIDS (Non-Steroidal AdvReac Unknown Unknown/Unable Verified 01/04/17 11:58 Anti-Inflamma to obtain Home Medications: Home Medications Medication Instructions Recorded Confirmed Type Fluoxetine HCl [Prozac] 40 mg PO DAILY 05/26/15 01/04/17 History Insulin Aspart Prot/Asp 70/30 6 unit SUBCUT BID 05/26/15 01/04/17 History [NovoLOG Mix 70/30] Cholecalciferol (Vitamin D3) 2,000 unit PO DAILY 06/13/15 01/04/17 History [Vitamin D3] Calcium Carbonate/Vitamin D3 1 each PO DAILY 11/04/15 01/04/17 History [Calcium 1,000 + D3 Caplet] Clopidogrel [Plavix] 75 mg PO DAILY 11/04/15 01/04/17 History Potassium Chloride Cap/Tab [Micro 8 meq PO DAILY 11/04/15 01/04/17 History K] Sevelamer Carbonate Tab [Renvela 800 mg PO TID W/MEALS 11/04/15 01/04/17 History Tab] Calcitriol 0.5 mcg PO BID 09/21/16 01/04/17 History Omeprazole 20 mg PO DAILY 09/21/16 01/04/17 History Tramadol HCl [Tramadol Tab] 50 mg PO Q8H PRN 11/29/16 01/04/17 History Loratadine Tab [Claritin Tab] 10 mg PO QOTHER DAY PRN 01/04/17 01/04/17 History Ondansetron [Ondansetron Odt] 8 mg PO Q8H PRN 01/04/17 01/04/17 History Rosuvastatin Calcium 40 mg PO DAILY 01/04/17 01/04/17 History Warfarin [Coumadin] 3 mg PO DAILY@1800 tablet 01/13/17 Rx predniSONE TAB [PredniSONE] 40 mg PO DAILY #30 tablet 01/13/17 Rx Review of System - Review of System 12 point system: reviewed and no additional remarkable complaints except as stated - Review of System Constitutional: Absent: chills, fever Eyes: Absent: discharge, pain Head/Ears/Nose/Throat: Absent: earache Respiratory: Absent: cough Cardiovascular: Absent: chest pain Gastrointestinal: Present: as per HPI, abdominal pain, nausea, vomiting. Absent : diarrhea Genitourinary female: Absent: dysuria, discharge, dyspareunia, frequency Musculoskeletal: Absent: arm pain, back pain, leg pain, neck pain Skin: Absent: rash, lesions Medical,Surgical,& Family Hx - Medical History Cardio: History of: CAD, Hypertension, MD (2003), PVD Psychological: History of: Depression Neurology: History of: TIA (spring) No history of: Seizures HEENT: History of: Eye Problem Endocrine: History of: Diabetes Mellitus (IDDM), Dyslipidemia Rheumatology: History of;: Gout Renal: History of: Renal Failure Comment Only: Renal Problems (PD pt) Genitourinary: History of: Genitourinary Cancer (cervical cancer 2008) Gastrointestinal: History of: GERD, GI Problems (Chronic cholecystitis and cholelithiasis, hiatal hernia) Musculoskeletal: History of: Amputation (2 toes on her right foot) Hematology: History of: Anemia No history of: Blood Transfusion Reaction Reproductive: History of: Reproductive Cancer (cervical) Other: History of: Cancer (adenocarcinoma, DR SOARES TO START CHEMO SOON) No history of: Anesthesia Reactions - Surgical History Cardiac Surgeries: Sugical HX of: Cardiac Catheterization (stents x 2, DR HENDRICKSON 2003), Vascular Access Devices (MEDIPORT) Patient Denies: Cardiac Surgery Thoracic Surgeries: Patient denies;: Organ Transplant, Lobectomy Neurologic Surgeries: Patient denies: Neurologic Surgery HEENT Surgeries: Surgical HX of: Eye Surgery (cataract), Tonsilectomy & Adenoidectomy Patient denies: Thyroid Surgery Abdominal Surgeries: Surgical HX of: Abdominal Surgery, Appendectomy, Cholecystectomy (November), Colonoscopy, EGD Reproductive Surgeries: Patient denies;: Genitourinary Surgery, Gynecologic Surgery Orthopedic Surgeries: Surgical HX of;: Implanted Devices (mediport right chest) - Family History Family History: Reports;: Family Diabetes (FATHER), Family Heart Disease (FATHER ), Family Hypertension (MOTHER), Family Stroke (STROKE) - Social History Smoking Status: Former smoker Frequency of Alcohol Use: None Type of Drug Use: None Exam Physical Examination: GENERAL: This is a ill-appearing white female in no apparent distress. VITAL SIGNS: HEENT: Head is normocephalic and atraumatic. Pupils are equally round and reactive to light. Extraocular movement are intact. Oropharynx is benign with moist mucous membranes. NECK: Neck is soft and supple without tenderness. There are no masses. There is no lymphadenopathy. LUNGS: Lungs are clear to auscultation bilaterally. Chest rises symmetrically. There is no chest wall tenderness. CV: Heart is regular rate and rhythm without murmurs, rubs, or gallops. ABDOMEN: Abdomen is soft, non-tender to palpation. There are no abnormal masses palpated. There is no organomegaly. Bowel sounds are present and active. SKIN: Skin is warm and dry. No rash. EXTREMITIES: Patient has full range of motion without tenderness. There is no pedal edema. NEUROLOGIC: Awake, alert, and oriented x4. Cranial nerves II through XII are grossly intact. There are no motorsensory deficits. PSYCHIATRIC: Normal affect. Normal mood. Vital Signs: Vital Signs Temperature 98.1 F 01/27/17 12:20 Pulse Rate 85 01/27/17 13:30 Respiratory Rate 16 01/27/17 13:30 Blood Pressure 81/54 01/27/17 13:30 O2 Sat by Pulse Oximetry 99 01/27/17 13:30 Course - Consultations Consultation #1: Discussed with Dr. Soares. Patient will be admitted to his service. Time: 15:00 Results - Labs CBC & BMP: 01/27/17 13:10 01/27/17 13:10 Lab Results: I have reviewed the patients labs - EKG EKG results: interpreted by ERMD - Impressions EKG: Normal sinus rhythm with rate 88, sinus arrhythmia, old lateral MD. Old inferior MD. Nonspecific ST-T wave changes. - Diagnostic Findings Procedure: Chest x-ray: report reviewed by me, image reviewed by me (1. Cardiomegaly. 2. Stable position of port catheter. 3. Minimal atelectatic change in the bases bilaterally. ) Disposition Clinical Impression: Adenocarcinoma of undetermined origin, Hypotension, End-stage renal disease on peritoneal dialysis, Anemia, Thrombocytopenia, Hypokalemia Case discussed with: patient Disposition: Still a Patient Condition: Stable Time of Disposition: 14:57
[2017-01-27 13:51] LABS: Lactic Acid 2.2 MMOL/L (0.4-2.0)
--- NOTE | 2017-01-27 14:20 | EKG Report ---
Stationary ECG Study [facility] ER Test Date: 01/27/2017 12:45:49 PM Pat Name: JAVIER MIGUEL Department: Room: Gender: F Mold Tooling Technician: : 1950 Requested by: Marcus Lopez Order Number: [id number] Reading MD: EDWARDO WETZEL Intervals Orick Rate: 88 P: 75 VA: 187 QRS: -12 QRSD: 102 T: 93 QT: 355 QTc: 400 Interpretive Statements NORMAL SINUS RHYTHM INFERIOR MYOCARDIAL INFARCTION, PROBABLY OLD Electronically Signed On 01-27-17 17:44:53 CDT by EDWARDO WETZEL [email or web address]
[2017-01-27 14:40] LABS: Albumin 1.4 G/DL (3.4-5.0); Bilirubin,Total 0.4 MG/DL (0.2-1.0); Calcium 6.2 MG/DL (8.5-10.1); Osmolality,Calculated 292.1 MOS/KG (273-304); Potassium 2.6 MMOL/L (3.5-5.1); Total Protein 4.1 G/DL (6.4-8.3)
[2017-01-27] MEDS ORDERED: LEVOFLOXACIN INJ 500 MG in PREMIX 1 EACH IV STA (15:21)
[2017-01-27] MEDS ORDERED: LEVOFLOXACIN INJ 100 ML IV ONE (15:42)
[2017-01-27 16:20] LABS: PT Patient Result 46.3 SECS
[2017-01-27 16:22] LABS: Partial Thromboplastin Time 47.2 SECS (0-40)
[2017-01-27] MEDS ORDERED: TEMAZEPAM 7.5 MG CAPSULE PO PRN (17:20)
[2017-01-27] MEDS ORDERED: DEXTROSE 50% 25 GM/50 ML VIAL IV PRN (17:20)
[2017-01-27] MEDS ORDERED: LACTULOSE 20 GM/30 ML UDCUP PO PRN (17:20)
[2017-01-27] MEDS ORDERED: chlorproMAZINE INJ 50 MG in SODIUM CHLORIDE 0.9% 100 ML IV PRN (17:20)
[2017-01-27] MEDS ORDERED: GLUCAGON 1 MG VIAL IM PRN (17:20)
[2017-01-27] MEDS ORDERED: PROMETHAZINE INJ 25 MG in SODIUM CHLORIDE 0.9% 50 ML IV PRN (17:20)
[2017-01-27] MEDS ORDERED: guaiFENesin 200 MG/10 ML UDCUP PO PRN (17:20)
[2017-01-27] MEDS ORDERED: ALPRAZolam 0.25 MG TABLET PO PRN (17:20)
[2017-01-27] MEDS ORDERED: ALUMINUM/MAGNES/SIMETH MAX STR 30 ML UDCUP PO PRN (17:20)
[2017-01-27] MEDS ORDERED: chlorproMAZINE INJ 25 MG in SODIUM CHLORIDE 0.9% 100 ML IV PRN (17:20)
[2017-01-27] MEDS ORDERED: diphenhydrAMINE CAP 25 MG CAPSULE PO PRN (17:20)
[2017-01-27] MEDS ORDERED: MYLANTA/LIDO VISC 2:1 300 ML BOTTLE SWISH/SWAL PRN (17:20)
[2017-01-27] MEDS ORDERED: MYLANTA/LIDO VISC 2:1 300 ML BOTTLE SWISH/SPIT PRN (17:20)
[2017-01-27] MEDS ORDERED: BENZTROPINE 2 MG/2 ML AMP IV PRN (17:20)
[2017-01-27] MEDS ORDERED: MAGNESIUM HYDROXIDE SUSP 30 ML UDCUP PO PRN (17:20)
[2017-01-27] MEDS ORDERED: SODIUM CHLORIDE 0.9% 250 ML IV PRN ×2 (17:20→17:45)
[2017-01-27] MEDS ORDERED: traMADol 50 MG TABLET PO PRN (17:20)
[2017-01-27] MEDS ORDERED: chlorproMAZINE 25 MG TABLET PO PRN (17:20)
[2017-01-27] MEDS ORDERED: ACETAMINOPHEN 325 MG TABLET PO PRN (17:20)
[2017-01-27] MEDS: SODIUM CHLORIDE 0.9% 1,000 ML IV SCH (17:32)
[2017-01-27] MEDS ORDERED: POTASSIUM CHLORIDE RIDER 10 MEQ in PREMIX 1 EACH IV PRN (17:47)
[2017-01-27] MEDS ORDERED: MAGNESIUM SULF RIDER 2 GM in PREMIX 1 EACH IV PRN (17:49)
[2017-01-27] MEDS ORDERED: MAGNESIUM SULF RIDER 4 GM in PREMIX 1 EACH IV PRN (17:49)
[2017-01-27] MEDS: POTASSIUM CHLORIDE RIDER 20 MEQ in PREMIX 1 EACH IV PRN ×2 (18:03→21:19)
[2017-01-27] MEDS: INSULIN LISPRO 100 UNIT/ML SUBCUT SCH ×2 (18:04→20:56)
[2017-01-27] MEDS: cefTRIAXone 1,000 MG in SODIUM CHLORIDE 0.9% 100 ML IV SCH (20:02)
[2017-01-27] MEDS ORDERED: GENTAMICIN 80 MG/2 ML VIAL INTRAPERIT ONE (21:00)
[2017-01-27] MEDS ORDERED: VANCOMYCIN 1,000 MG VIAL INTRAPERIT ONE (21:00)
[2017-01-27] MEDS: LOPERAMIDE 2 MG CAPSULE PO PRN (21:18)
[2017-01-27] MEDS: DESITIN 4OZ/NYSTATIN 15 GRAM MIXTURE PASTE TOP SCH (22:52)
[2017-01-28 01:41] LABS: Hemoglobin 8.5 GM/DL (12.0-16.0)
[2017-01-28 05:01] LABS: Basophils % 0.4 % (0.0-0.8); Eosinophils % 0.3 % (0.00-10.9); Hematocrit 25.8 VOL% (35.7-47.0); Hemoglobin 8.3 GM/DL (12.0-16.0); Immature Granulocytes Absolute 0.88 #; Lymphocytes # 0.5 10*3/uL (1.4-4.0); Lymphocytes % 5.1 % (21.3-54.2); Mean Corpuscular HGB Conc 32.2 GM/DL (32-36); Mean Corpuscular Hemoglobin 29 PG (27-34); Mean Corpuscular Volume 90.2 FL (87-102); Mean Platelet Volume 10.8 FL (9.6-12.0); Monocytes # 0.7 10*3/uL (0.11-0.8); Neutrophils # 7.7 10*3/uL (1.4-7.4); Neutrophils % 78.2 % (38.7-73.9); Platelet Count 104 T/CUMM (130-400); Red Blood Count 2.86 MC/CUMM (3.8-5.5); Red Cell Distribution Width 15.9 % (9.3-17.3); White Blood Count 9.8 T/CUMM (4-12)
[2017-01-28 05:23] LABS: Band Neutrophils 6 % (0-10); Lymphocytes 3 % (20-55); Platelet Estimate Decreased; Segmented Neutrophils 85 % (50-85); Total Cells Counted 100
[2017-01-28 05:24] LABS: Hypochromasia 1+
[2017-01-28 05:37] LABS: Albumin 1.4 G/DL (3.4-5.0); Bilirubin,Total 0.8 MG/DL (0.2-1.0); Calcium 6.7 MG/DL (8.5-10.1); Osmolality,Calculated 291.1 MOS/KG (273-304); Potassium 3.2 MMOL/L (3.5-5.1); Total Protein 3.8 G/DL (6.4-8.3)
[2017-01-28] MEDS: DESITIN 4OZ/NYSTATIN 15 GRAM MIXTURE PASTE TOP SCH ×2 (05:57→12:32)
[2017-01-28] MEDS: LOPERAMIDE 2 MG CAPSULE PO PRN ×3 (05:57→14:38)
[2017-01-28] MEDS: SODIUM CHLORIDE 0.9% 1,000 ML IV SCH (07:04)
[2017-01-28] MEDS ORDERED: POTASSIUM CHLORIDE 20 MEQ TABLET PO ONE (08:34)
[2017-01-28] MEDS ORDERED: PHYTONADIONE 5 MG TABLET PO ONE (08:40)
[2017-01-28] MEDS: INSULIN LISPRO 100 UNIT/ML SUBCUT SCH ×4 (08:42→20:52)
--- NOTE | 2017-01-28 09:09 | Oncology History&Physical ---
Assessment and Plan (1) Metastatic adenocarcinoma Status: Acute Assessment and plan: The patient has adequate white blood cell count at this time with prior Neulasta administration. We will continue to follow her hemoglobin and platelets while hospitalized. I am going to permanently discontinue warfarin which was initiated last month due to upper extremity DVT. She will remain on Plavix due to the CVA. Her blood final cultures will need to be followed up with antibiotic adjustments made. Dr. Lam is notified of her admission and she should be able to resume peritoneal dialysis tonight Current Visit: Yes History of Present Illness Chief complaint: Weakness History of present illness: Ms. Tellez is a 66 year old female Admitted through adult ER yesterday with complaints of weakness. She was hypotensive. She has received red blood cell transfusion and crystalloid replacement overnight. Her history is pertinent for ESRD on peritoneal treatments, CVA 2 and recent right upper extremity DVT treating with warfarin. The patient does have a supratherapeutic INR and we have discussed discontinuation of warfarin given her difficulties with multiple hospitalizations, supratherapeutic values, and chemotherapy related thrombocytopenia. She remains on Plavix for the CVA 1 approximately April 2016 and one in December 2016. She has a metastatic adenocarcinoma of unknown primary and has shown response to 2 cycles of Taxol and carboplatinum She is stable on examination ICU this morning and should be able to move to a regular hospital bed. She does have gram-negative rods noted on preliminary blood culture results Home Medications Medication Instructions Recorded Confirmed Type Fluoxetine HCl [Prozac] 40 mg PO QAM 05/26/15 01/27/17 History Insulin Aspart Prot/Asp 70/30 6 unit SUBCUT BID 05/26/15 01/27/17 History [NovoLOG Mix 70/30] Clopidogrel [Plavix] 75 mg PO QAM 11/04/15 01/27/17 History Sevelamer Carbonate Tab [Renvela 800 mg PO TID W/MEALS 11/04/15 01/27/17 History Tab] Calcitriol 0.5 mcg PO QAM 09/21/16 01/27/17 History Omeprazole 20 mg PO QAM 09/21/16 01/27/17 History Tramadol HCl [Tramadol Tab] 50 mg PO Q12H PRN 11/29/16 01/27/17 History Loratadine Tab [Claritin Tab] 10 mg PO QOTHER DAY PRN 01/04/17 01/27/17 History Ondansetron [Ondansetron Odt] 8 mg PO Q8H PRN 01/04/17 01/27/17 History Rosuvastatin Calcium 40 mg PO QPM 01/04/17 01/27/17 History Warfarin [Coumadin] 3 mg PO DAILY@1800 tablet 01/13/17 01/27/17 Rx Calcium Carbonate/Vitamin D3 1 each PO QAM 01/27/17 01/27/17 History [Calcium 600-Vit D3 800 Tablet] Potassium Chloride 8 meq PO DAILY W/BREAKFAST 01/27/17 01/27/17 History Promethazine Tab [Phenergan Tab] 25 mg PO Q6H PRN 01/27/17 01/27/17 History Prorenal D 1 tablet PO QAM 01/27/17 01/27/17 History predniSONE TAB [PredniSONE] 40 mg PO QAM 01/27/17 01/27/17 History Allergies Allergy/AdvReac Type Severity Reaction Status Date / Time meperidine [From Demerol] Allergy Severe ANAPHYLAXIS Verified 01/04/17 11:58 Penicillins Allergy Intermediate RASH Verified 01/04/17 11:58 codeine AdvReac Intermediate Nausea Verified 01/04/17 11:58 NSAIDS (Non-Steroidal AdvReac Unknown Unknown/Unable Verified 01/04/17 11:58 Anti-Inflamma to obtain Medical,Surgical,& Family Hx - Medical History Cardio: History of: CAD, Hypertension, [place] (2003), PVD Psychological: History of: Depression Neurology: History of: TIA (spring) No history of: Seizures HEENT: History of: Eye Problem Endocrine: History of: Diabetes Mellitus (IDDM), Dyslipidemia Rheumatology: History of;: Gout Renal: History of: Dialysis (peritoneal dialysis), Renal Failure Comment Only: Renal Problems (PD pt) Genitourinary: History of: Genitourinary Cancer (cervical cancer 2007) Gastrointestinal: History of: GERD, GI Problems (Chronic cholecystitis and cholelithiasis, hiatal hernia) Musculoskeletal: History of: Amputation (2 toes on her right foot) Hematology: History of: Anemia No history of: Blood Transfusion Reaction Reproductive: History of: Reproductive Cancer (cervical) Other: History of: Cancer (adenocarcinoma, DR SOARES TO START CHEMO SOON) No history of: Anesthesia Reactions - Surgical History Cardiac Surgeries: Sugical HX of: Cardiac Catheterization (stents x 2, DR HOUSTON 2004), Vascular Access Devices (MEDIPORT) Patient Denies: Cardiac Surgery Thoracic Surgeries: Patient denies;: Organ Transplant, Lobectomy Neurologic Surgeries: Patient denies: Neurologic Surgery HEENT Surgeries: Surgical HX of: Eye Surgery (cataract), Tonsilectomy & Adenoidectomy Patient denies: Thyroid Surgery Abdominal Surgeries: Surgical HX of: Abdominal Surgery, Appendectomy, Cholecystectomy (November), Colonoscopy, EGD Reproductive Surgeries: Patient denies;: Genitourinary Surgery, Gynecologic Surgery Orthopedic Surgeries: Surgical HX of;: Implanted Devices (mediport right chest) - Family History Family History: Reports;: Family Diabetes (FATHER), Family Heart Disease (FATHER ), Family Hypertension (MOTHER), Family Stroke (STROKE) - Social History Smoking Status: Former smoker Frequency of Alcohol Use: None Type of Drug Use: None - Constitutional Constitutional: Present: weight loss. Absent: weight gain - EENT Ears: Absent: tinnitus Nose, mouth and throat: Absent: dizziness, dysphagia, epistaxis, vertigo - Cardiovascular Cardiovascular ROS IM: Absent: chest pain, palpitations - Respiratory Respiratory: Present: dyspnea. Absent: cough, hemoptysis, wheezing - Gastrointestinal Gastrointestinal: Absent: hematemesis, vomiting - Neurological Neurological ROS: Absent: memory loss - Hematologic/Lymphatic Hematologic/Lymphatic: Absent: lymphadenopathy Exam - Constitutional Vitals: Period Temp Pulse Resp BP Sys/Mckeon Pulse Ox Last 24 Hr 97.3 F-98.1 F 55-92 12-98 80-124/37-77 97-100 General appearance: no acute distress, over weight - Head Head Exam: Present: normal inspection, normocephalic - Eye Eye Exam: Present: EOMI. Absent: conjunctival injection, periorbital swelling, scleral icterus Pupils: Present: PERRL, normal accommodation - ENT ENT exam: Present: normal external ear exam, normal oropharynx - Neck Neck exam: Absent: tenderness, thyromegaly - Respiratory Respiratory exam: Present: CTAB. Absent: accessory muscle use, chest wall tenderness - Cardiovascular Cardiovascular exam: Present: RRR. Absent: tachycardia - GI/Abdominal GI/Abdominal exam: Absent: guarding, mass - Neurological Exam Neurological exam: Present: alert, oriented X3 - Psychiatric Psychiatric exam: Present: normal affect, normal mood Results - Labs CBC & BMP: 01/28/17 04:45 01/28/17 04:45
[2017-01-28] MEDS ORDERED: PROMETHAZINE 25 MG TABLET PO PRN (11:31)
[2017-01-28] MEDS ORDERED: traMADol 50 MG TABLET PO PRN (11:31)
[2017-01-28] MEDS ORDERED: ONDANSETRON ODT 4 MG TABLET PO PRN (11:31)
[2017-01-28] MEDS ORDERED: LORATADINE 10 MG TABLET PO PRN (11:31)
[2017-01-28] MEDS: CALCITRIOL 0.25 MCG CAPSULE PO SCH (12:18)
[2017-01-28] MEDS: CLOPIDOGREL 75 MG TABLET PO SCH (12:18)
[2017-01-28] MEDS: CALCIUM (CARBONATE)/VITAMIN D 600 MG-400 UNIT TABLET PO SCH (12:18)
[2017-01-28] MEDS: SEVELAMER CARBONATE 800 MG TABLET PO SCH ×2 (12:18→16:55)
[2017-01-28] MEDS: PANTOPRAZOLE 40 MG TABLET PO SCH (12:19)
[2017-01-28] MEDS: FLUoxetine 20 MG CAPSULE PO SCH (12:19)
[2017-01-28] MEDS: INSULIN ASPART PROTAMINE/ASPART 70/30 100 UNIT/ML SUBCUT SCH ×2 (12:19→20:44)
[2017-01-28] MEDS: MULTIVITAMIN (BEROCCA) TABLET PO SCH (12:33)
--- NOTE | 2017-01-28 14:03 | Nephrology Consult Note ---
History of Present Illness Chief complaint: ESRD History of present illness: Ms. Tellez is a 66 year old female with ESRD. She is on peritoneal dialysis. She has had no symptoms of peritonitis. She has just had a second course of chemotherapy for metastatic adenocarcinoma. She presented to the ER with weakness and nausea. She was noted to be hypotensive. Blood cultures have subsequently grown gram-negative rods. She has been transfused since admission. Home Medications Medication Instructions Recorded Confirmed Type Fluoxetine HCl [Prozac] 40 mg PO QAM 05/26/15 01/27/17 History Insulin Aspart Prot/Asp 70/30 6 unit SUBCUT BID 05/26/15 01/27/17 History [NovoLOG Mix 70/30] Clopidogrel [Plavix] 75 mg PO QAM 11/04/15 01/27/17 History Sevelamer Carbonate Tab [Renvela 800 mg PO TID W/MEALS 11/04/15 01/27/17 History Tab] Calcitriol 0.5 mcg PO QAM 09/21/16 01/27/17 History Omeprazole 20 mg PO QAM 09/21/16 01/27/17 History Tramadol HCl [Tramadol Tab] 50 mg PO Q12H PRN 11/29/16 01/27/17 History Loratadine Tab [Claritin Tab] 10 mg PO QOTHER DAY PRN 01/04/17 01/27/17 History Ondansetron [Ondansetron Odt] 8 mg PO Q8H PRN 01/04/17 01/27/17 History Rosuvastatin Calcium 40 mg PO QPM 01/04/17 01/27/17 History Warfarin [Coumadin] 3 mg PO DAILY@1800 tablet 01/13/17 01/27/17 Rx Calcium Carbonate/Vitamin D3 1 each PO QAM 01/27/17 01/27/17 History [Calcium 600-Vit D3 800 Tablet] Potassium Chloride 8 meq PO DAILY W/BREAKFAST 01/27/17 01/27/17 History Promethazine Tab [Phenergan Tab] 25 mg PO Q6H PRN 01/27/17 01/27/17 History Prorenal D 1 tablet PO QAM 01/27/17 01/27/17 History predniSONE TAB [PredniSONE] 40 mg PO QAM 01/27/17 01/27/17 History Allergies Allergy/AdvReac Type Severity Reaction Status Date / Time meperidine [From Demerol] Allergy Severe ANAPHYLAXIS Verified 01/04/17 11:58 Penicillins Allergy Intermediate RASH Verified 01/04/17 11:58 codeine AdvReac Intermediate Nausea Verified 01/04/17 11:58 NSAIDS (Non-Steroidal AdvReac Unknown Unknown/Unable Verified 01/04/17 11:58 Anti-Inflamma to obtain Medical,Surgical,& Family Hx - Medical History Cardio: History of: CAD, Hypertension, [place] (2003), PVD Psychological: History of: Depression Neurology: History of: TIA (spring) No history of: Seizures HEENT: History of: Eye Problem Endocrine: History of: Diabetes Mellitus (IDDM), Dyslipidemia Rheumatology: History of;: Gout Renal: History of: Dialysis (peritoneal dialysis), Renal Failure Comment Only: Renal Problems (PD pt) Genitourinary: History of: Genitourinary Cancer (cervical cancer 2007) Gastrointestinal: History of: GERD, GI Problems (Chronic cholecystitis and cholelithiasis, hiatal hernia) Musculoskeletal: History of: Amputation (2 toes on her right foot) Hematology: History of: Anemia No history of: Blood Transfusion Reaction Reproductive: History of: Reproductive Cancer (cervical) Other: History of: Cancer (adenocarcinoma, DR SOARES TO START CHEMO SOON) No history of: Anesthesia Reactions - Surgical History Cardiac Surgeries: Sugical HX of: Cardiac Catheterization (stents x 2, DR HOUSTON 2003), Vascular Access Devices (MEDIPORT) Patient Denies: Cardiac Surgery Thoracic Surgeries: Patient denies;: Organ Transplant, Lobectomy Neurologic Surgeries: Patient denies: Neurologic Surgery HEENT Surgeries: Surgical HX of: Eye Surgery (cataract), Tonsilectomy & Adenoidectomy Patient denies: Thyroid Surgery Abdominal Surgeries: Surgical HX of: Abdominal Surgery, Appendectomy, Cholecystectomy (November), Colonoscopy, EGD Reproductive Surgeries: Patient denies;: Genitourinary Surgery, Gynecologic Surgery Orthopedic Surgeries: Surgical HX of;: Implanted Devices (mediport right chest) - Family History Family History: Reports;: Family Diabetes (FATHER), Family Heart Disease (FATHER ), Family Hypertension (MOTHER), Family Stroke (STROKE) - Social History Smoking Status: Former smoker Frequency of Alcohol Use: None Type of Drug Use: None Review of Systems 12 point system: reviewed and no additional remarkable complaints except as stated Exam - Vital Signs Vital signs: Period Temp Pulse Resp BP Sys/Mckeon Pulse Ox Last 24 Hr 97.3 F-98.5 F 55-92 12-98 80-124/37-77 93-100 Exam: Gen.: Alert and oriented x3. ENT: Pupils equal round reactive to light. EOMs intact. Alopecia Neck: Supple. No JVD or bruit. Cardiovascular: Regular rate and rhythm. No murmur rub or gallop Lungs: Clear Abdomen: Soft. Nontender. Positive bowel sounds. PD catheter exit site shows no sign of infection Extremities: No edema Results - Labs CBC & BMP: 01/28/17 04:45 01/28/17 04:45 Assessment and Plan (1) End-stage renal disease on peritoneal dialysis Status: Acute Assessment and plan: 66-year-old woman admitted with: * ESRD. Peritoneal dialysis will continue with 1.5% exchanges. * Hypokalemia. Potassium will be added to PD fluid * Bacteremia. Blood culture preliminary gram-negative kristine. She is on ceftriaxone * Metastatic adenocarcinoma. Status post 2 courses chemotherapy * Hypotension. Improved * Anemia. Transfused * Diabetes mellitus * Cerebrovascular disease Current Visit: Yes (2) Cerebrovascular disease Status: Acute Current Visit: Yes (3) Anemia Status: Acute Current Visit: Yes (4) Hypokalemia Status: Acute Current Visit: Yes (5) Hypotension Status: Acute Current Visit: Yes (6) Metastatic adenocarcinoma Status: Acute Current Visit: Yes (7) Diabetes Status: Acute Current Visit: No (8) Bacteremia due to Gram-negative bacteria Status: Acute Current Visit: Yes
[2017-01-28] MEDS: POTASSIUM CHLORIDE 20 MEQ/10 ML VIAL INTRAPERIT SCH (18:00)
[2017-01-28] MEDS: cefTRIAXone 1,000 MG in SODIUM CHLORIDE 0.9% 100 ML IV SCH (20:39)
[2017-01-28] MEDS: ROSUVASTATIN 20 MG TABLET PO SCH (20:43)
[2017-01-28] MEDS: POTASSIUM CHLORIDE RIDER 20 MEQ in PREMIX 1 EACH IV PRN (23:42)
[2017-01-29] MEDS: POTASSIUM CHLORIDE 20 MEQ/10 ML VIAL INTRAPERIT SCH ×5 (00:16→18:00)
[2017-01-29] MEDS: DESITIN 4OZ/NYSTATIN 15 GRAM MIXTURE PASTE TOP SCH ×2 (00:17→08:42)
[2017-01-29] MEDS: POTASSIUM CHLORIDE RIDER 20 MEQ in PREMIX 1 EACH IV PRN (01:46)
[2017-01-29] MEDS: LOPERAMIDE 2 MG CAPSULE PO PRN (03:52)
[2017-01-29 04:55] LABS: Basophils % 0.4 % (0.0-0.8); Eosinophils % 0.4 % (0.00-10.9); Hematocrit 28.1 VOL% (35.7-47.0); Immature Granulocytes % 5.1 %; Immature Granulocytes Absolute 0.56 #; Lymphocytes # 0.6 10*3/uL (1.4-4.0); Lymphocytes % 5.3 % (21.3-54.2); Mean Corpuscular Hemoglobin 29 PG (27-34); Mean Corpuscular Volume 89.8 FL (87-102); Mean Platelet Volume 10.1 FL (9.6-12.0); Monocytes % 9.3 % (1.7-12.7); Neutrophils # 8.7 10*3/uL (1.4-7.4); Neutrophils % 79.5 % (38.7-73.9); Platelet Count 109 T/CUMM (130-400); Red Blood Count 3.13 MC/CUMM (3.8-5.5); Red Cell Distribution Width 16.7 % (9.3-17.3); White Blood Count 10.9 T/CUMM (4-12)
[2017-01-29 05:08] LABS: INR 1.3; PT Patient Result 13.4 SECS
[2017-01-29 05:35] LABS: Calcium 6.7 MG/DL (8.5-10.1); Magnesium 1.5 MG/DL (1.8-2.4); Osmolality,Calculated 287.5 MOS/KG (273-304); Potassium 3.8 MMOL/L (3.5-5.1)
[2017-01-29 05:38] LABS: Band Neutrophils 3 % (0-10); Hypochromasia Slight; Lymphocytes 3 % (20-55); Microcytosis 1+; Platelet Estimate Decreased; Segmented Neutrophils 85 % (50-85); Total Cells Counted 100
[2017-01-29] MEDS: MULTIVITAMIN (BEROCCA) TABLET PO SCH (08:41)
[2017-01-29] MEDS: CLOPIDOGREL 75 MG TABLET PO SCH (08:41)
[2017-01-29] MEDS: PANTOPRAZOLE 40 MG TABLET PO SCH (08:41)
[2017-01-29] MEDS: CALCIUM (CARBONATE)/VITAMIN D 600 MG-400 UNIT TABLET PO SCH (08:41)
[2017-01-29] MEDS: FLUoxetine 20 MG CAPSULE PO SCH (08:41)
[2017-01-29] MEDS: SEVELAMER CARBONATE 800 MG TABLET PO SCH ×3 (08:41→16:27)
[2017-01-29] MEDS: POTASSIUM CHLORIDE 8 MEQ CAPSULE PO SCH (08:41)
[2017-01-29] MEDS: CALCITRIOL 0.25 MCG CAPSULE PO SCH (08:41)
[2017-01-29] MEDS: INSULIN ASPART PROTAMINE/ASPART 70/30 100 UNIT/ML SUBCUT SCH ×2 (08:42→21:53)
[2017-01-29] MEDS: INSULIN LISPRO 100 UNIT/ML SUBCUT SCH ×4 (08:42→21:54)
--- NOTE | 2017-01-29 11:16 | Oncology Progress Note ---
Oncology Subjective PN Interval history: Ms. Tellez is a 66 year old female who was admitted through adult ER yesterday with complaints of weakness. She was hypotensive. She has received red blood cell transfusion. Her hemoglobin today is 10.9, up from 7.0 on January 27 when she was admitted. She has ESRD on peritoneal treatments, CVA 2 and recent right upper extremity DVT treating with warfarin. Her INR today is 1.3. She remains on Plavix for the CVA. Her platelet count today is 109,000. She has a metastatic adenocarcinoma of unknown primary and has shown response to 2 cycles of Taxol and carboplatinum She is having copious diarrhea. She tells me that the last time this happened, Dr. Esteves placed her on prednisone and it greatly improved the diarrhea. I am giving her 1 dose of prednisone 40 mg at her request and we will see if it helps. In addition, she has MRSA on nasal swab so we are starting Bactroban. Exam - Constitutional Vitals: Period Temp Pulse Resp BP Sys/Mckeon Pulse Ox Last 24 Hr 97.5 F-98.9 F 82-97 18-20 91-134/45-75 90-98 Results - Labs CBC & BMP: 01/29/17 04:41 01/29/17 04:41
[2017-01-29] MEDS ORDERED: predniSONE 20 MG TABLET PO ONE (13:29)
[2017-01-29] MEDS: MUPIROCIN 2% OINT 22 GM TUBE TOP SCH ×2 (14:01→21:56)
--- NOTE | 2017-01-29 14:48 | Nephrology Progress Note ---
Nephrology - PN: Subj Interval history: Mental status normal. Blood pressure stable. No shortness of breath. She still has diarrhea. No problems with PD exchanges Exam (PN)-Nephrology - Vital Signs Vital signs: Period Temp Pulse Resp BP Sys/Mckoen Pulse Ox Last 24 Hr 97.5 F-98.9 F 83-97 18-20 91-134/51-75 90-98 Exam: ENT: Alopecia Cardiovascular: Regular rate and rhythm. No murmur rub or gallop Lungs: Clear Abdomen: Nontender. PD catheter functioning well Extremities: No edema - Lab 01/29/17 04:41 01/29/17 04:41 Most recent lab results Calcium 6.7 MG/DL (8.5-10.1) L 01/29/17 04:41 Magnesium 1.5 MG/DL (1.8-2.4) L 01/29/17 04:41 Assessment and Plan (1) End-stage renal disease on peritoneal dialysis Status: Acute Assessment and plan: 66-year-old woman admitted with: * ESRD. Peritoneal dialysis will continue with 1.5% exchanges. * Hypokalemia. Improving with intraperitoneal potassium * Bacteremia. Blood culture preliminary gram-negative kristine. She is on ceftriaxone * Metastatic adenocarcinoma. Status post 2 courses chemotherapy * Hypotension. Improved * Anemia. Transfused * Diabetes mellitus * Cerebrovascular disease * Diarrhea. Colitis noted on recent colonoscopy. Prednisone resumed Current Visit: Yes (2) Cerebrovascular disease Status: Acute Current Visit: Yes (3) Anemia Status: Acute Current Visit: Yes (4) Hypokalemia Status: Acute Current Visit: Yes (5) Hypotension Status: Acute Current Visit: Yes (6) Metastatic adenocarcinoma Status: Acute Current Visit: Yes (7) Diabetes Status: Acute Current Visit: No (8) Bacteremia due to Gram-negative bacteria Status: Acute Current Visit: Yes
[2017-01-29] MEDS: ROSUVASTATIN 20 MG TABLET PO SCH (17:59)
[2017-01-29] MEDS: cefTRIAXone 1,000 MG in SODIUM CHLORIDE 0.9% 100 ML IV SCH (21:52)
[2017-01-30] MEDS: POTASSIUM CHLORIDE 20 MEQ/10 ML VIAL INTRAPERIT SCH ×4 (00:10→18:44)
[2017-01-30] MEDS: DESITIN 4OZ/NYSTATIN 15 GRAM MIXTURE PASTE TOP SCH ×3 (06:31→21:26)
[2017-01-30] MEDS: SEVELAMER CARBONATE 800 MG TABLET PO SCH ×3 (07:47→16:25)
[2017-01-30] MEDS: INSULIN LISPRO 100 UNIT/ML SUBCUT SCH ×4 (07:48→21:23)
[2017-01-30] MEDS: INSULIN ASPART PROTAMINE/ASPART 70/30 100 UNIT/ML SUBCUT SCH ×3 (07:49→21:22)
[2017-01-30] MEDS: MULTIVITAMIN (BEROCCA) TABLET PO SCH (09:26)
[2017-01-30] MEDS: PANTOPRAZOLE 40 MG TABLET PO SCH (09:26)
[2017-01-30] MEDS: FLUoxetine 20 MG CAPSULE PO SCH (09:26)
[2017-01-30] MEDS: CLOPIDOGREL 75 MG TABLET PO SCH (09:26)
[2017-01-30] MEDS: CALCITRIOL 0.25 MCG CAPSULE PO SCH (09:26)
[2017-01-30] MEDS: CALCIUM (CARBONATE)/VITAMIN D 600 MG-400 UNIT TABLET PO SCH (09:26)
[2017-01-30] MEDS: POTASSIUM CHLORIDE 8 MEQ CAPSULE PO SCH (09:26)
--- NOTE | 2017-01-30 10:28 | Oncology Progress Note ---
Oncology Subjective PN Interval history: Ms. Tellez is a 66 year old female who was admitted through adult ER yesterday with complaints of weakness. She was hypotensive. She has received red blood cell transfusion. Her hemoglobin today is 10.9, up from 7.0 on January 27 when she was admitted. She has ESRD on peritoneal treatments, CVA 2 and recent right upper extremity DVT treating with warfarin. Her INR today is 1.3. She remains on Plavix for the CVA. Her platelet count today is 109,000. She has a metastatic adenocarcinoma of unknown primary and has shown response to 2 cycles of Taxol and carboplatinum She has 2 blood cultures that have been reported as positive for Pseudomonas. She is afebrile on Rocephin although it is not 1 of the medications it was tested. The Pseudomonas is sensitive to Fortaz and cefepime. I will continue the Rocephin unless Dr. Lam thinks we need to switch to something else instead. In addition, she has been having copious diarrhea. I started her on prednisone yesterday and the diarrhea has improved. She has a history of colitis and is under the care of Dr. Esteves for this. She is oriented and alert. She is currently undergoing peritoneal dialysis. She is in no acute distress and seems to be feeling better today. Exam - Constitutional Vitals: Period Temp Pulse Resp BP Sys/Mckeon Pulse Ox Last 24 Hr 96.5 F-98.9 F 51-94 16-20 89-158/54-76 91-98 Results - Labs CBC & BMP: 01/29/17 04:41 01/29/17 04:41
[2017-01-30] MEDS: predniSONE 20 MG TABLET PO SCH (12:55)
[2017-01-30] MEDS: MUPIROCIN 2% OINT 22 GM TUBE TOP SCH ×2 (13:08→21:25)
--- NOTE | 2017-01-30 14:35 | Nephrology Progress Note ---
Nephrology - PN: Subj Interval history: She feels better overall. No shortness of breath. Diarrhea improving Exam (PN)-Nephrology - Vital Signs Vital signs: Period Temp Pulse Resp BP Sys/Mckeon Pulse Ox Last 24 Hr 96.5 F-98.9 F 51-103 16-20 89-158/54-76 91-97 Exam: ENT: Normal Cardiovascular: Regular rate and rhythm. No murmur rub or gallop Lungs: Clear Abdomen: Nontender Extremities: No edema - Lab 01/29/17 04:41 01/29/17 04:41 Most recent lab results Calcium 6.7 MG/DL (8.5-10.1) L 01/29/17 04:41 Magnesium 1.5 MG/DL (1.8-2.4) L 01/29/17 04:41 Assessment and Plan (1) End-stage renal disease on peritoneal dialysis Status: Acute Assessment and plan: 66-year-old woman admitted with: * ESRD. Peritoneal dialysis will continue with 1.5% exchanges. * Hypokalemia. Improving with intraperitoneal potassium * Bacteremia. Blood culture grew Pseudomonas. She is clinically improved. However, based on sensitivities, Fortaz will be started * Metastatic adenocarcinoma. Status post 2 courses chemotherapy * Hypotension. Improved * Anemia. Transfused * Diabetes mellitus * Cerebrovascular disease * Diarrhea. Colitis noted on recent colonoscopy. Prednisone resumed Current Visit: Yes (2) Cerebrovascular disease Status: Acute Current Visit: Yes (3) Anemia Status: Acute Current Visit: Yes (4) Hypokalemia Status: Acute Current Visit: Yes (5) Hypotension Status: Acute Current Visit: Yes (6) Metastatic adenocarcinoma Status: Acute Current Visit: Yes (7) Diabetes Status: Acute Current Visit: No (8) Bacteremia due to Gram-negative bacteria Status: Acute Current Visit: Yes
[2017-01-30] MEDS: ROSUVASTATIN 20 MG TABLET PO SCH (21:20)
[2017-01-31] MEDS: POTASSIUM CHLORIDE 20 MEQ/10 ML VIAL INTRAPERIT SCH ×3 (00:30→11:49)
--- NOTE | 2017-01-31 08:39 | Oncology Progress Note ---
Assessment and Plan (1) Metastatic adenocarcinoma Status: Acute Assessment and plan: The patient has adequate white blood cell count at this time with prior Neulasta administration. We will continue to follow her hemoglobin and platelets while hospitalized. I am going to permanently discontinue warfarin which was initiated last month due to upper extremity DVT. She will remain on Plavix due to the CVA. Her blood final cultures will need to be followed up with antibiotic adjustments made. Dr. Lam is notified of her admission and she should be able to resume peritoneal dialysis tonight Current Visit: Yes Oncology Subjective PN Interval history: Hospital day 5 for patient with metastatic adenocarcinoma. She was admitted with hypotension. Blood cultures are notable for Pseudomonas that appears pansensitive. She is currently receiving Fortaz at 1 g daily. She continues with peritoneal dialysis. Labs are pending from today. Overall she is improved from my last examination on Tuesday. I have encouraged her to get up and out of the bed. I think she could be discharged within the next 48 hours. We will ask for physical therapy to assist with her while she is hospitalized Exam - Constitutional Vitals: Period Temp Pulse Resp BP Sys/Mckeon Pulse Ox Last 24 Hr 97.0 F-98.1 F 58-103 18-20 115-174/66-78 96-100 Results - Labs CBC & BMP: 01/29/17 04:41 01/29/17 04:41
[2017-01-31 09:22] LABS: Basophils % 0.3 % (0.0-0.8); Hematocrit 33.6 VOL% (35.7-47.0); Immature Granulocytes % 6.5 %; Immature Granulocytes Absolute 0.95 #; Lymphocytes # 0.6 10*3/uL (1.4-4.0); Lymphocytes % 4.4 % (21.3-54.2); Mean Corpuscular HGB Conc 32.7 GM/DL (32-36); Mean Corpuscular Hemoglobin 30 PG (27-34); Mean Corpuscular Volume 90.8 FL (87-102); Mean Platelet Volume 10.6 FL (9.6-12.0); Monocytes # 0.7 10*3/uL (0.11-0.8); Monocytes % 4.7 % (1.7-12.7); Neutrophils # 12.2 10*3/uL (1.4-7.4); Neutrophils % 84.1 % (38.7-73.9); Platelet Count 81 T/CUMM (130-400); Red Cell Distribution Width 16.6 % (9.3-17.3); White Blood Count 14.6 T/CUMM (4-12)
[2017-01-31] MEDS: CALCITRIOL 0.25 MCG CAPSULE PO SCH (09:29)
[2017-01-31] MEDS: POTASSIUM CHLORIDE 8 MEQ CAPSULE PO SCH (09:29)
[2017-01-31] MEDS: INSULIN ASPART PROTAMINE/ASPART 70/30 100 UNIT/ML SUBCUT SCH ×2 (09:30→20:51)
[2017-01-31] MEDS: FLUoxetine 20 MG CAPSULE PO SCH (09:30)
[2017-01-31] MEDS: MULTIVITAMIN (BEROCCA) TABLET PO SCH (09:30)
[2017-01-31] MEDS: predniSONE 20 MG TABLET PO SCH (09:30)
[2017-01-31] MEDS: CLOPIDOGREL 75 MG TABLET PO SCH (09:30)
[2017-01-31] MEDS: PANTOPRAZOLE 40 MG TABLET PO SCH (09:30)
[2017-01-31] MEDS: CALCIUM (CARBONATE)/VITAMIN D 600 MG-400 UNIT TABLET PO SCH (09:30)
[2017-01-31] MEDS: INSULIN LISPRO 100 UNIT/ML SUBCUT SCH ×4 (09:30→20:50)
[2017-01-31] MEDS: MUPIROCIN 2% OINT 22 GM TUBE TOP SCH ×2 (09:31→20:52)
[2017-01-31] MEDS: DESITIN 4OZ/NYSTATIN 15 GRAM MIXTURE PASTE TOP SCH ×2 (09:31→20:52)
[2017-01-31] MEDS: SEVELAMER CARBONATE 800 MG TABLET PO SCH ×3 (09:31→17:25)
[2017-01-31 09:59] LABS: Alanine Aminotransferase 12 U/L (13-56); Albumin 1.5 G/DL (3.4-5.0); Alkaline Phosphatase 135 U/L (45-117); Aspartate Amino Transferase 17 U/L (0-37); Bilirubin,Total < 0.39 MG/DL (0.2-1.0); Blood Urea Nitrogen 47 MG/DL (7-18); Calcium 7.7 MG/DL (8.5-10.1); Glucose 203 MG/DL (74-106); Osmolality,Calculated 294.5 MOS/KG (273-304); Potassium 4.3 MMOL/L (3.5-5.1); Sodium 139 MMOL/L (136-145); Total Protein 4.3 G/DL (6.4-8.3)
--- NOTE | 2017-01-31 12:39 | Nephrology Progress Note ---
Nephrology - PN: Subj Interval history: She is up in the chair eating today. She feels better overall. No shortness of breath Exam (PN)-Nephrology - Vital Signs Vital signs: Period Temp Pulse Resp BP Sys/Mckeon Pulse Ox Last 24 Hr 96.7 F-98.1 F 58-88 18-20 115-174/66-78 96-100 Exam: ENT: Normal Cardiovascular: Regular rate and rhythm. No murmur rub or gallop Lungs: Clear Abdomen: Nontender. PD fluid clear Extremities: No edema - Lab 01/31/17 08:20 01/31/17 08:20 Most recent lab results Calcium 7.7 MG/DL (8.5-10.1) L 01/31/17 08:20 Magnesium 1.5 MG/DL (1.8-2.4) L 01/29/17 04:41 Assessment and Plan (1) End-stage renal disease on peritoneal dialysis Status: Acute Assessment and plan: 66-year-old woman admitted with: * ESRD. Peritoneal dialysis will continue with 1.5% exchanges. * Hypokalemia. Resolved. Discontinue IP potassium * Bacteremia. Blood culture grew Pseudomonas. Continue Fortaz * Metastatic adenocarcinoma. Status post 2 courses chemotherapy * Hypotension. Resolved * Anemia. Transfused * Diabetes mellitus * Cerebrovascular disease * Diarrhea. Colitis noted on recent colonoscopy. Prednisone resumed. Improved Current Visit: Yes (2) Cerebrovascular disease Status: Acute Current Visit: Yes (3) Anemia Status: Acute Current Visit: Yes (4) Hypokalemia Status: Acute Current Visit: Yes (5) Hypotension Status: Acute Current Visit: Yes (6) Metastatic adenocarcinoma Status: Acute Current Visit: Yes (7) Diabetes Status: Acute Current Visit: No (8) Bacteremia due to Gram-negative bacteria Status: Acute Current Visit: Yes
[2017-01-31] MEDS: ROSUVASTATIN 20 MG TABLET PO SCH (20:50)
[2017-02-01] MEDS: INSULIN LISPRO 100 UNIT/ML SUBCUT SCH ×4 (07:55→20:58)
--- NOTE | 2017-02-01 08:27 | Oncology Progress Note ---
Assessment and Plan (1) Metastatic adenocarcinoma Status: Acute Assessment and plan: The patient has adequate white blood cell count at this time with prior Neulasta administration. We will continue to follow her hemoglobin and platelets while hospitalized. I am going to permanently discontinue warfarin which was initiated last month due to upper extremity DVT. She will remain on Plavix due to the CVA. Her blood final cultures will need to be followed up with antibiotic adjustments made. Dr. Lam is notified of her admission and she should be able to resume peritoneal dialysis tonight Current Visit: Yes Oncology Subjective PN Interval history: Patient with metastatic adenocarcinoma and Pseudomonas infection. She is stable overnight. She has had some mild diarrhea with history of colitis noted. She is tolerating diet and is afebrile. Her abdomen is soft and nontender. She is due for chemotherapy next Tuesday. We are continuing IV antibiotics and at this time I anticipate she can be discharged later this week Exam - Constitutional Vitals: Period Temp Pulse Resp BP Sys/Mckeon Pulse Ox Last 24 Hr 96.9 F-97.3 F 78-93 18-20 117-151/62-97 93-97 Results - Labs CBC & BMP: 01/31/17 08:20 01/31/17 08:20
[2017-02-01] MEDS: CALCITRIOL 0.25 MCG CAPSULE PO SCH (08:53)
[2017-02-01] MEDS: predniSONE 20 MG TABLET PO SCH (08:53)
[2017-02-01] MEDS: FLUoxetine 20 MG CAPSULE PO SCH (08:54)
[2017-02-01] MEDS: MUPIROCIN 2% OINT 22 GM TUBE TOP SCH ×2 (08:54→21:02)
[2017-02-01] MEDS: PANTOPRAZOLE 40 MG TABLET PO SCH (08:54)
[2017-02-01] MEDS: POTASSIUM CHLORIDE 8 MEQ CAPSULE PO SCH (08:54)
[2017-02-01] MEDS: CALCIUM (CARBONATE)/VITAMIN D 600 MG-400 UNIT TABLET PO SCH (08:54)
[2017-02-01] MEDS: MULTIVITAMIN (BEROCCA) TABLET PO SCH (08:54)
[2017-02-01] MEDS: CLOPIDOGREL 75 MG TABLET PO SCH (08:54)
[2017-02-01] MEDS: DESITIN 4OZ/NYSTATIN 15 GRAM MIXTURE PASTE TOP SCH ×2 (08:55→21:02)
[2017-02-01] MEDS: INSULIN ASPART PROTAMINE/ASPART 70/30 100 UNIT/ML SUBCUT SCH ×2 (08:55→21:01)
[2017-02-01] MEDS: SEVELAMER CARBONATE 800 MG TABLET PO SCH ×3 (08:55→16:19)
[2017-02-01] MEDS: ROSUVASTATIN 20 MG TABLET PO SCH (21:01)
--- NOTE | 2017-02-01 23:13 | Nephrology Progress Note ---
Nephrology - PN: Subj Interval history: She feels stronger. Appetite is improving. PD exchanges going well Exam (PN)-Nephrology - Vital Signs Vital signs: Period Temp Pulse Resp BP Sys/Mckeon Pulse Ox Last 24 Hr 96.8 F-97.6 F 49-88 18-20 104-145/53-68 93-98 Exam: ENT: Normal Cardiovascular: Regular rate and rhythm. No murmur rub or gallop Lungs: Clear Extremities: No edema - Lab 01/31/17 08:20 01/31/17 08:20 Most recent lab results Calcium 7.7 MG/DL (8.5-10.1) L 01/31/17 08:20 Magnesium 1.5 MG/DL (1.8-2.4) L 01/29/17 04:41 Assessment and Plan (1) End-stage renal disease on peritoneal dialysis Status: Acute Assessment and plan: 66-year-old woman admitted with: * ESRD. Peritoneal dialysis will continue with 1.5% exchanges. * Hypokalemia. Resolved. At * Bacteremia. Blood culture grew Pseudomonas. Continue Fortaz * Metastatic adenocarcinoma. Status post 2 courses chemotherapy * Hypotension. Resolved * Anemia. Transfused * Diabetes mellitus * Cerebrovascular disease * Diarrhea. Colitis noted on recent colonoscopy. Prednisone resumed. Improved Current Visit: Yes (2) Cerebrovascular disease Status: Acute Current Visit: Yes (3) Anemia Status: Acute Current Visit: Yes (4) Hypokalemia Status: Acute Current Visit: Yes (5) Hypotension Status: Acute Current Visit: Yes (6) Metastatic adenocarcinoma Status: Acute Current Visit: Yes (7) Diabetes Status: Acute Current Visit: No (8) Bacteremia due to Gram-negative bacteria Status: Acute Current Visit: Yes
--- NOTE | 2017-02-02 08:30 | Oncology Progress Note ---
Assessment and Plan (1) Metastatic adenocarcinoma Status: Acute Assessment and plan: The patient has adequate white blood cell count at this time with prior Neulasta administration. We will continue to follow her hemoglobin and platelets while hospitalized. I am going to permanently discontinue warfarin which was initiated last month due to upper extremity DVT. She will remain on Plavix due to the CVA. Her blood final cultures will need to be followed up with antibiotic adjustments made. Dr. Lam is notified of her admission and she should be able to resume peritoneal dialysis tonight Current Visit: Yes Oncology Subjective PN Interval history: Still with loose bowel movements overnight. Approximately 7 yesterday. I am going to give her some IV Solu-Medrol monitor her blood glucose. Her abdomen is nontender and she continues to exhibit a fair appetite. She did not participate with physical therapy yesterday but is ready for a workout today. I have also placed her on probiotics and will transition to p.o. antibiotics Exam - Constitutional Vitals: Period Temp Pulse Resp BP Sys/Mckeon Pulse Ox Last 24 Hr 96.8 F-97.6 F 56-88 19-20 121-148/58-65 91-98 Results - Labs CBC & BMP: 01/31/17 08:20 01/31/17 08:20
[2017-02-02] MEDS: INSULIN LISPRO 100 UNIT/ML SUBCUT SCH ×4 (08:50→21:43)
[2017-02-02] MEDS ORDERED: LEVOFLOXACIN 750 MG TABLET PO ONE (09:00)
[2017-02-02] MEDS ORDERED: LEVOFLOXACIN 750 MG TABLET PO SCH (09:00)
[2017-02-02] MEDS: CALCIUM (CARBONATE)/VITAMIN D 600 MG-400 UNIT TABLET PO SCH (10:11)
[2017-02-02] MEDS: CALCITRIOL 0.25 MCG CAPSULE PO SCH (10:11)
[2017-02-02] MEDS: MULTIVITAMIN (BEROCCA) TABLET PO SCH (10:12)
[2017-02-02] MEDS: INSULIN ASPART PROTAMINE/ASPART 70/30 100 UNIT/ML SUBCUT SCH ×2 (10:12→21:43)
[2017-02-02] MEDS: LACTOBACILLUS RHAMNOSUS GG CAPSULE PO SCH ×2 (10:12→21:42)
[2017-02-02] MEDS: SEVELAMER CARBONATE 800 MG TABLET PO SCH ×3 (10:12→16:07)
[2017-02-02] MEDS: CLOPIDOGREL 75 MG TABLET PO SCH (10:12)
[2017-02-02] MEDS: FLUoxetine 20 MG CAPSULE PO SCH (10:12)
[2017-02-02] MEDS: POTASSIUM CHLORIDE 8 MEQ CAPSULE PO SCH (10:12)
[2017-02-02] MEDS: PANTOPRAZOLE 40 MG TABLET PO SCH (10:12)
[2017-02-02] MEDS: methylPREDNISolone SOD SUC 40 MG/1 ML VIAL IV SCH ×2 (10:13→21:45)
[2017-02-02] MEDS: DESITIN 4OZ/NYSTATIN 15 GRAM MIXTURE PASTE TOP SCH (10:16)
[2017-02-02] MEDS: MUPIROCIN 2% OINT 22 GM TUBE TOP SCH ×2 (10:16→21:44)
[2017-02-02] MEDS ORDERED: HYDROCORTISONE 2.5% RECTAL CREAM 30 GM TUBE TOP PRN (10:33)
[2017-02-02] MEDS: metroNIDAZOLE 500 MG TABLET PO SCH ×3 (11:24→21:42)
--- NOTE | 2017-02-02 21:19 | Nephrology Progress Note ---
Nephrology - PN: Subj Interval history: She still has some diarrhea. No abdominal pain. PD fluid remains clear. No S OB Exam (PN)-Nephrology - Vital Signs Vital signs: Period Temp Pulse Resp BP Sys/Mckeon Pulse Ox Last 24 Hr 97.1 F-98.3 F 56-92 16-20 124-148/57-83 91-97 Exam: ENT: Normal Cardiovascular: Regular rate and rhythm. No murmur rub or gallop Lungs: Clear Abdomen: Nontender. PD fluid clear Extremities: No edema - Lab 01/31/17 08:20 01/31/17 08:20 Most recent lab results Calcium 7.7 MG/DL (8.5-10.1) L 01/31/17 08:20 Magnesium 1.5 MG/DL (1.8-2.4) L 01/29/17 04:41 Assessment and Plan (1) End-stage renal disease on peritoneal dialysis Status: Acute Assessment and plan: 66-year-old woman admitted with: * ESRD. Peritoneal dialysis will continue with 1.5% exchanges. * Hypokalemia. Resolved. * Bacteremia. Blood culture grew Pseudomonas. Continue Fortaz * Metastatic adenocarcinoma. Status post 2 courses chemotherapy * Hypotension. Resolved * Anemia. Transfused * Diabetes mellitus * Cerebrovascular disease * Diarrhea. C. difficile positive. P.o. Levaquin started Current Visit: Yes (2) Cerebrovascular disease Status: Acute Current Visit: Yes (3) Anemia Status: Acute Current Visit: Yes (4) Hypokalemia Status: Acute Current Visit: Yes (5) Hypotension Status: Acute Current Visit: Yes (6) Metastatic adenocarcinoma Status: Acute Current Visit: Yes (7) Diabetes Status: Acute Current Visit: No (8) Bacteremia due to Gram-negative bacteria Status: Acute Current Visit: Yes
[2017-02-02] MEDS: ROSUVASTATIN 20 MG TABLET PO SCH (21:42)
[2017-02-03] MEDS: DESITIN 4OZ/NYSTATIN 15 GRAM MIXTURE PASTE TOP SCH ×3 (01:57→23:11)
[2017-02-03] MEDS: INSULIN LISPRO 100 UNIT/ML SUBCUT SCH ×4 (09:57→23:09)
[2017-02-03] MEDS: CALCIUM (CARBONATE)/VITAMIN D 600 MG-400 UNIT TABLET PO SCH (09:57)
[2017-02-03] MEDS: CALCITRIOL 0.25 MCG CAPSULE PO SCH (09:57)
[2017-02-03] MEDS: POTASSIUM CHLORIDE 8 MEQ CAPSULE PO SCH (09:57)
[2017-02-03] MEDS: PANTOPRAZOLE 40 MG TABLET PO SCH (09:57)
[2017-02-03] MEDS: metroNIDAZOLE 500 MG TABLET PO SCH ×3 (09:57→23:08)
[2017-02-03] MEDS: LACTOBACILLUS RHAMNOSUS GG CAPSULE PO SCH ×2 (09:57→23:08)
[2017-02-03] MEDS: CLOPIDOGREL 75 MG TABLET PO SCH (09:57)
[2017-02-03] MEDS: FLUoxetine 20 MG CAPSULE PO SCH (09:57)
[2017-02-03] MEDS: MULTIVITAMIN (BEROCCA) TABLET PO SCH (09:57)
[2017-02-03] MEDS: SEVELAMER CARBONATE 800 MG TABLET PO SCH ×3 (09:57→17:07)
[2017-02-03] MEDS: INSULIN ASPART PROTAMINE/ASPART 70/30 100 UNIT/ML SUBCUT SCH ×2 (09:58→23:10)
[2017-02-03] MEDS: MUPIROCIN 2% OINT 22 GM TUBE TOP SCH ×2 (10:17→23:11)
--- NOTE | 2017-02-03 12:17 | Oncology Progress Note ---
Assessment and Plan (1) Metastatic adenocarcinoma Status: Acute Assessment and plan: The patient has adequate white blood cell count at this time with prior Neulasta administration. We will continue to follow her hemoglobin and platelets while hospitalized. I am going to permanently discontinue warfarin which was initiated last month due to upper extremity DVT. She will remain on Plavix due to the CVA. Her blood final cultures will need to be followed up with antibiotic adjustments made. Dr. Lam is notified of her admission and she should be able to resume peritoneal dialysis tonight Current Visit: Yes Oncology Subjective PN Interval history: Patient remained stable with plans update labs in the a.m. She has noted to be positive for C. difficile. Oral metronidazole was started yesterday. She has had to be bowel movements overnight. Her abdomen is nontender and she appears nontoxic. She was changed to oral antibiotics yesterday for previous Pseudomonas infection. I did order a repeat set of blood cultures for surveillance purposes [facility]. She has not exhibited any fever or other signs of blood-borne infection. Exam - Constitutional Vitals: Period Temp Pulse Resp BP Sys/Mckeon Pulse Ox Last 24 Hr 97.0 F-98.6 F 50-100 16-20 116-153/58-83 93-98 Results - Labs CBC & BMP: 01/31/17 08:20 01/31/17 08:20
--- NOTE | 2017-02-03 13:59 | Nephrology Progress Note ---
Nephrology - PN: Subj Interval history: She is up in the chair today. She denies shortness of breath or chest pain. Diarrhea is improving Exam (PN)-Nephrology - Vital Signs Vital signs: Period Temp Pulse Resp BP Sys/Mckeon Pulse Ox Last 24 Hr 97.0 F-98.6 F 50-107 16-20 116-161/58-93 94-98 Exam: Gen.: Alert and oriented x3. ENT: Pupils equal round reactive to light. EOMs intact. Mucous membranes moist. Neck: Supple. No JVD or bruit. Cardiovascular: Regular rate and rhythm. No murmur rub or gallop Lungs: Clear Abdomen: Soft. Nontender. Positive bowel sounds. No organomegaly. PD catheter exit site shows no sign of infection Extremities: No edema - Lab 01/31/17 08:20 01/31/17 08:20 Most recent lab results Calcium 7.7 MG/DL (8.5-10.1) L 01/31/17 08:20 Magnesium 1.5 MG/DL (1.8-2.4) L 01/29/17 04:41 Assessment and Plan (1) End-stage renal disease on peritoneal dialysis Status: Acute Assessment and plan: 66-year-old woman admitted with: * ESRD. Peritoneal dialysis will continue with 1.5% exchanges. * Bacteremia. Blood culture grew Pseudomonas. Continue current antibiotics * Metastatic adenocarcinoma. Status post 2 courses chemotherapy * Hypotension. Resolved * Anemia. Transfused * Diabetes mellitus * Cerebrovascular disease * Diarrhea. C. difficile positive. Continue Flagyl Current Visit: Yes (2) Cerebrovascular disease Status: Acute Current Visit: Yes (3) Anemia Status: Acute Current Visit: Yes (4) Hypokalemia Status: Acute Current Visit: Yes (5) Hypotension Status: Acute Current Visit: Yes (6) Metastatic adenocarcinoma Status: Acute Current Visit: Yes (7) Diabetes Status: Acute Current Visit: No (8) Bacteremia due to Gram-negative bacteria Status: Acute Current Visit: Yes
[2017-02-03] MEDS: ROSUVASTATIN 20 MG TABLET PO SCH (23:08)
[2017-02-04] MEDS: ONDANSETRON 4 MG/2 ML VIAL IV PRN (00:57)
[2017-02-04 05:25] LABS: Basophils # 0.1 10*3/uL (0.0-0.2); Basophils % 0.2 % (0.0-0.8); Eosinophils % 0.1 % (0.00-10.9); Hematocrit 33.3 VOL% (35.7-47.0); Immature Granulocytes Absolute 0.78 #; Lymphocytes % 3.8 % (21.3-54.2); Mean Corpuscular Hemoglobin 30 PG (27-34); Mean Corpuscular Volume 90.5 FL (87-102); Mean Platelet Volume 10.9 FL (9.6-12.0); Monocytes # 0.8 10*3/uL (0.11-0.8); Monocytes % 2.9 % (1.7-12.7); Neutrophils # 23.4 10*3/uL (1.4-7.4); Red Blood Count 3.68 MC/CUMM (3.8-5.5); Red Cell Distribution Width 16.3 % (9.3-17.3); White Blood Count 26.1 T/CUMM (4-12)
[2017-02-04 05:27] LABS: Platelet Count 44 T/CUMM (130-400)
[2017-02-04 05:41] LABS: Alanine Aminotransferase 20 U/L (13-56); Albumin 1.4 G/DL (3.4-5.0); Alkaline Phosphatase 140 U/L (45-117); Aspartate Amino Transferase 15 U/L (0-37); Bilirubin,Total < 0.39 MG/DL (0.2-1.0); Blood Urea Nitrogen 48 MG/DL (7-18); Calcium 7.8 MG/DL (8.5-10.1); Glucose 84 MG/DL (74-106); Osmolality,Calculated 288.5 MOS/KG (273-304); Potassium 3.8 MMOL/L (3.5-5.1); Sodium 139 MMOL/L (136-145); Total Protein 4.2 G/DL (6.4-8.3)
[2017-02-04 05:58] LABS: Band Neutrophils 2 % (0-10); Hypochromasia 1+; Lymphocytes 5 % (20-55); Microcytosis Slight; Platelet Estimate Decreased; Segmented Neutrophils 89 % (50-85); Total Cells Counted 100
[2017-02-04] MEDS: INSULIN LISPRO 100 UNIT/ML SUBCUT SCH ×4 (08:21→22:24)
[2017-02-04] MEDS: INSULIN ASPART PROTAMINE/ASPART 70/30 100 UNIT/ML SUBCUT SCH ×2 (08:22→21:25)
[2017-02-04] MEDS ORDERED: LEVOFLOXACIN 500 MG TABLET PO SCH (09:00)
[2017-02-04 09:43] LABS: HIV Antigen/Antibody Result Nonreactive (Nonreactive); Hepatitis B Surface Ag Result Negative (Negative); Hepatitis C Virus Ab Quant 0.11 Index; Hepatitis C Virus Ab Result Negative (Negative)
[2017-02-04] MEDS: DESITIN 4OZ/NYSTATIN 15 GRAM MIXTURE PASTE TOP SCH ×2 (10:15→22:25)
[2017-02-04] MEDS: CLOPIDOGREL 75 MG TABLET PO SCH (11:17)
[2017-02-04] MEDS: CALCITRIOL 0.25 MCG CAPSULE PO SCH (11:17)
--- NOTE | 2017-02-04 11:18 | Oncology Progress Note ---
Assessment and Plan (1) Metastatic adenocarcinoma Status: Acute Assessment and plan: The patient has adequate white blood cell count at this time with prior Neulasta administration. We will continue to follow her hemoglobin and platelets while hospitalized. I am going to permanently discontinue warfarin which was initiated last month due to upper extremity DVT. She will remain on Plavix due to the CVA. Her blood final cultures will need to be followed up with antibiotic adjustments made. Dr. Lam is notified of her admission and she should be able to resume peritoneal dialysis tonight Current Visit: Yes Oncology Subjective PN Interval history: Patient with metastatic adenocarcinoma diabetes CVA and end-stage renal failure. Overnight she is experienced some nausea. She was drowsy this morning likely secondary to effects of IV Phenergan. Her bowels are hypoactive. She continues to have diarrhea from C. difficile colitis with plans to add oral vancomycin today. I will also place her on some very low rate IV fluids. She remains and anuric as noted previously. Her abdomen is nontender on today's examination. No significant leg edema is noted Exam - Constitutional Vitals: Period Temp Pulse Resp BP Sys/Mckeon Pulse Ox Last 24 Hr 97.6 F-98.3 F 57-107 16-20 104-161/57-93 96-98 Results - Labs CBC & BMP: 02/04/17 04:00 02/04/17 04:00
[2017-02-04] MEDS: metroNIDAZOLE 500 MG TABLET PO SCH ×3 (11:19→21:22)
[2017-02-04] MEDS: CALCIUM (CARBONATE)/VITAMIN D 600 MG-400 UNIT TABLET PO SCH (11:20)
[2017-02-04] MEDS: LACTOBACILLUS RHAMNOSUS GG CAPSULE PO SCH ×2 (11:20→21:22)
[2017-02-04] MEDS: MULTIVITAMIN (BEROCCA) TABLET PO SCH (11:21)
[2017-02-04] MEDS: PANTOPRAZOLE 40 MG TABLET PO SCH (11:21)
[2017-02-04] MEDS: POTASSIUM CHLORIDE 8 MEQ CAPSULE PO SCH (11:21)
[2017-02-04] MEDS: SEVELAMER CARBONATE 800 MG TABLET PO SCH ×3 (11:21→18:08)
[2017-02-04] MEDS: FLUoxetine 20 MG CAPSULE PO SCH (11:21)
[2017-02-04] MEDS: MUPIROCIN 2% OINT 22 GM TUBE TOP SCH ×2 (11:22→21:23)
[2017-02-04] MEDS ORDERED: SODIUM CHLORIDE 0.9% 1,000 ML IV SCH (11:30)
[2017-02-04] MEDS: VANCOMYCIN 50 MG/ML 60 ML/BOTTLE PO SCH ×2 (13:05→18:07)
[2017-02-04] MEDS ORDERED: SODIUM CHLORIDE 0.9% 1,000 ML IV ONE (13:21)
[2017-02-04] MEDS ORDERED: VANCOMYCIN INJ 1,000 MG in SODIUM CHLORIDE 0.9% 250 ML IV ONE (13:30)
[2017-02-04] MEDS ORDERED: HYDROCORTISONE 100 MG VIAL IV STA (16:26)
--- NOTE | 2017-02-04 16:29 | Nephrology Progress Note ---
Nephrology - PN: Subj Interval history: She complains of nausea and diarrhea today. She has no abdominal pain. PD fluid remains clear Exam (PN)-Nephrology - Vital Signs Vital signs: Period Temp Pulse Resp BP Sys/Cmkeon Pulse Ox Last 24 Hr 97.6 F-98.3 F 91-103 18-20 104-141/57-72 96-97 Exam: Gen.: Alert and oriented x3. ENT: Pupils equal round reactive to light. EOMs intact. Mucous membranes moist. Neck: Supple. No JVD or bruit. Cardiovascular: Regular rate and rhythm. No murmur rub or gallop Lungs: Clear Abdomen: Soft. Nontender. Positive bowel sounds. No organomegaly Extremities: No edema - Lab 02/04/17 04:00 02/04/17 04:00 Most recent lab results Calcium 7.8 MG/DL (8.5-10.1) L 02/04/17 04:00 Magnesium 1.5 MG/DL (1.8-2.4) L 01/29/17 04:41 Assessment and Plan (1) End-stage renal disease on peritoneal dialysis Status: Acute Assessment and plan: 66-year-old woman admitted with: * ESRD. Peritoneal dialysis will continue with 1.5% exchanges. * Bacteremia. Blood culture grew Pseudomonas. Continue current antibiotics * Metastatic adenocarcinoma. Status post 2 courses chemotherapy * Anemia. Transfused * Diabetes mellitus * Cerebrovascular disease * Diarrhea. C. difficile positive. Continue Flagyl Current Visit: Yes (2) Cerebrovascular disease Status: Acute Current Visit: Yes (3) Anemia Status: Acute Current Visit: Yes (4) Hypokalemia Status: Acute Current Visit: Yes (5) Hypotension Status: Acute Current Visit: Yes (6) Metastatic adenocarcinoma Status: Acute Current Visit: Yes (7) Diabetes Status: Acute Current Visit: No (8) Bacteremia due to Gram-negative bacteria Status: Acute Current Visit: Yes
[2017-02-04] MEDS: ROSUVASTATIN 20 MG TABLET PO SCH (21:22)
[2017-02-05] MEDS: VANCOMYCIN 50 MG/ML 60 ML/BOTTLE PO SCH ×5 (01:50→23:58)
[2017-02-05] MEDS: HYDROCORTISONE 100 MG VIAL IV SCH ×2 (04:00→16:29)
[2017-02-05 05:06] LABS: Basophils % 0.2 % (0.0-0.8); Hematocrit 29.6 VOL% (35.7-47.0); Hemoglobin 9.6 GM/DL (12.0-16.0); Immature Granulocytes % 3.7 %; Immature Granulocytes Absolute 0.87 #; Lymphocytes # 0.5 10*3/uL (1.4-4.0); Lymphocytes % 2.3 % (21.3-54.2); Mean Corpuscular HGB Conc 32.4 GM/DL (32-36); Mean Corpuscular Hemoglobin 29 PG (27-34); Mean Corpuscular Volume 90.8 FL (87-102); Mean Platelet Volume 11.8 FL (9.6-12.0); Monocytes # 0.5 10*3/uL (0.11-0.8); Neutrophils # 21.6 10*3/uL (1.4-7.4); Neutrophils % 91.8 % (38.7-73.9); Red Blood Count 3.26 MC/CUMM (3.8-5.5); Red Cell Distribution Width 16.6 % (9.3-17.3); White Blood Count 23.5 T/CUMM (4-12)
[2017-02-05 05:11] LABS: Platelet Count 35 T/CUMM (130-400)
[2017-02-05 06:10] LABS: Lymphocytes 2 % (20-55); Segmented Neutrophils 97 % (50-85); Total Cells Counted 100
[2017-02-05 06:11] LABS: Hypochromasia 1+; Microcytosis 1+
[2017-02-05 06:12] LABS: Platelet Estimate Decreased
[2017-02-05] MEDS: INSULIN LISPRO 100 UNIT/ML SUBCUT SCH ×4 (08:39→21:41)
--- NOTE | 2017-02-05 09:04 | Nephrology Progress Note ---
Nephrology - PN: Subj Interval history: Ms. Tellez is seen in follow-up of her end-stage renal disease on peritoneal dialysis. She is doing well and is in no distress today. She says that her diarrhea is slowing down and has had only 1 bowel movement this morning. She is eating and her chest is clear. Peritoneal dialysis is going well. Exam (PN)-Nephrology - Vital Signs Vital signs: Period Temp Pulse Resp BP Sys/Mckeon Pulse Ox Last 24 Hr 97.1 F-98.3 F 52-98 18-20 71-109/46-59 93-96 - Lab 02/05/17 03:58 02/04/17 04:00 Most recent lab results Calcium 7.8 MG/DL (8.5-10.1) L 02/04/17 04:00 Magnesium 1.5 MG/DL (1.8-2.4) L 01/29/17 04:41
[2017-02-05] MEDS: metroNIDAZOLE 500 MG TABLET PO SCH ×3 (09:11→21:15)
[2017-02-05] MEDS: POTASSIUM CHLORIDE 8 MEQ CAPSULE PO SCH (09:11)
[2017-02-05] MEDS: SEVELAMER CARBONATE 800 MG TABLET PO SCH ×3 (09:11→16:36)
[2017-02-05] MEDS: LACTOBACILLUS RHAMNOSUS GG CAPSULE PO SCH ×2 (09:12→21:16)
[2017-02-05] MEDS: MULTIVITAMIN (BEROCCA) TABLET PO SCH (09:12)
[2017-02-05] MEDS: CLOPIDOGREL 75 MG TABLET PO SCH (09:12)
[2017-02-05] MEDS: FLUoxetine 20 MG CAPSULE PO SCH (09:12)
[2017-02-05] MEDS: INSULIN ASPART PROTAMINE/ASPART 70/30 100 UNIT/ML SUBCUT SCH ×2 (09:13→21:40)
[2017-02-05] MEDS: PANTOPRAZOLE 40 MG TABLET PO SCH (09:13)
[2017-02-05] MEDS: CALCIUM (CARBONATE)/VITAMIN D 600 MG-400 UNIT TABLET PO SCH (09:13)
[2017-02-05] MEDS: DESITIN 4OZ/NYSTATIN 15 GRAM MIXTURE PASTE TOP SCH ×2 (09:13→21:16)
[2017-02-05] MEDS: MUPIROCIN 2% OINT 22 GM TUBE TOP SCH ×2 (09:13→21:16)
[2017-02-05] MEDS: CALCITRIOL 0.25 MCG CAPSULE PO SCH (09:16)
--- NOTE | 2017-02-05 14:39 | Oncology Progress Note ---
Assessment and Plan (1) Metastatic adenocarcinoma Status: Acute Assessment and plan: The patient has adequate white blood cell count at this time with prior Neulasta administration. We will continue to follow her hemoglobin and platelets while hospitalized. I am going to permanently discontinue warfarin which was initiated last month due to upper extremity DVT. She will remain on Plavix due to the CVA. Her blood final cultures will need to be followed up with antibiotic adjustments made. Dr. Lam is notified of her admission and she should be able to resume peritoneal dialysis tonight Current Visit: Yes Oncology Subjective PN Interval history: Patient is improved today after institution of hydrocortisone IV for presumed adrenal insufficiency. Her strength is better. Her blood pressure is better and her nausea has resolved. We will continue to treat C. difficile colitis with oral vancomycin and metronidazole. Due to yesterday's episode of hypotension she was restarted on IV antibiotics with positive blood cultures originally from January 27 demonstrating a sensitive Pseudomonas. She is more thrombocytopenic today and I will place further doses of Plavix on hold until platelets can recover to greater than 55,000. Exam - Constitutional Vitals: Period Temp Pulse Resp BP Sys/Mckeon Pulse Ox Last 24 Hr 97.1 F-98.3 F 52-98 18-21 71-122/46-71 93-96 Results - Labs CBC & BMP: 02/05/17 03:58 02/04/17 04:00
[2017-02-05] MEDS ORDERED: DEXTROSE 5% IV SCH (16:00)
[2017-02-05] MEDS ORDERED: CEFTAZIDIME IV SCH (16:00)
[2017-02-05] MEDS: ROSUVASTATIN 20 MG TABLET PO SCH (21:15)
[2017-02-06] MEDS: HYDROCORTISONE 100 MG VIAL IV SCH (04:16)
[2017-02-06] MEDS: HEPARIN LOCK FLUSH 500 UNIT/5 ML SYRINGE IV PRN (04:21)
[2017-02-06 05:26] LABS: Basophils % 0.2 % (0.0-0.8); Hematocrit 29.3 VOL% (35.7-47.0); Hemoglobin 9.5 GM/DL (12.0-16.0); Immature Granulocytes % 3.1 %; Immature Granulocytes Absolute 0.56 #; Lymphocytes # 0.7 10*3/uL (1.4-4.0); Lymphocytes % 3.9 % (21.3-54.2); Mean Corpuscular HGB Conc 32.4 GM/DL (32-36); Mean Corpuscular Hemoglobin 29 PG (27-34); Mean Corpuscular Volume 89.9 FL (87-102); Mean Platelet Volume 11.5 FL (9.6-12.0); Monocytes # 0.5 10*3/uL (0.11-0.8); Monocytes % 2.9 % (1.7-12.7); Neutrophils # 16.1 10*3/uL (1.4-7.4); Neutrophils % 89.9 % (38.7-73.9); Red Blood Count 3.26 MC/CUMM (3.8-5.5); Red Cell Distribution Width 16.4 % (9.3-17.3); White Blood Count 17.9 T/CUMM (4-12)
[2017-02-06 05:50] LABS: Platelet Count 31 T/CUMM (130-400)
[2017-02-06 06:03] LABS: Band Neutrophils 2 % (0-10); Lymphocytes 7 % (20-55); Myelocytes 1 %; Nucleated Red Blood Cells 1 (0-5); Segmented Neutrophils 89 % (50-85); Total Cells Counted 100
[2017-02-06] MEDS: VANCOMYCIN 50 MG/ML 60 ML/BOTTLE PO SCH ×3 (06:03→17:10)
[2017-02-06 06:04] LABS: Platelet Estimate Decreased
[2017-02-06] MEDS: metroNIDAZOLE 500 MG TABLET PO SCH ×3 (08:58→20:22)
[2017-02-06] MEDS: CALCITRIOL 0.25 MCG CAPSULE PO SCH (08:58)
[2017-02-06] MEDS: POTASSIUM CHLORIDE 8 MEQ CAPSULE PO SCH (08:59)
[2017-02-06] MEDS: PANTOPRAZOLE 40 MG TABLET PO SCH (08:59)
[2017-02-06] MEDS: LACTOBACILLUS RHAMNOSUS GG CAPSULE PO SCH ×2 (08:59→20:22)
[2017-02-06] MEDS: FLUoxetine 20 MG CAPSULE PO SCH (08:59)
[2017-02-06] MEDS: CALCIUM (CARBONATE)/VITAMIN D 600 MG-400 UNIT TABLET PO SCH (08:59)
[2017-02-06] MEDS: INSULIN LISPRO 100 UNIT/ML SUBCUT SCH ×4 (08:59→20:23)
[2017-02-06] MEDS: INSULIN ASPART PROTAMINE/ASPART 70/30 100 UNIT/ML SUBCUT SCH ×2 (08:59→20:22)
[2017-02-06] MEDS: MULTIVITAMIN (BEROCCA) TABLET PO SCH (08:59)
--- NOTE | 2017-02-06 08:59 | Nephrology Progress Note ---
Nephrology - PN: Subj Interval history: Ms. Tellez is seen in follow-up of her end-stage renal disease on peritoneal dialysis. She is doing well with no problems with her peritoneal dialysis. Chest is clear and she is in no distress. She seems to be eating well and has no complaint. Will continue with her usual peritoneal dialysis. Exam (PN)-Nephrology - Vital Signs Vital signs: Period Temp Pulse Resp BP Sys/Mckeon Pulse Ox Last 24 Hr 97.0 F-97.8 F 60-93 16-21 104-129/59-71 92-96 - Lab 02/06/17 04:00 02/04/17 04:00 Most recent lab results Calcium 7.8 MG/DL (8.5-10.1) L 02/04/17 04:00 Magnesium 1.5 MG/DL (1.8-2.4) L 01/29/17 04:41
[2017-02-06] MEDS: SEVELAMER CARBONATE 800 MG TABLET PO SCH ×3 (09:00→17:09)
[2017-02-06] MEDS: MUPIROCIN 2% OINT 22 GM TUBE TOP SCH ×2 (09:00→20:23)
[2017-02-06] MEDS: DESITIN 4OZ/NYSTATIN 15 GRAM MIXTURE PASTE TOP SCH ×2 (09:00→20:23)
--- NOTE | 2017-02-06 11:51 | Oncology Progress Note ---
Assessment and Plan (1) Metastatic adenocarcinoma Status: Acute Assessment and plan: The patient has adequate white blood cell count at this time with prior Neulasta administration. We will continue to follow her hemoglobin and platelets while hospitalized. I am going to permanently discontinue warfarin which was initiated last month due to upper extremity DVT. She will remain on Plavix due to the CVA. Her blood final cultures will need to be followed up with antibiotic adjustments made. Dr. Lam is notified of her admission and she should be able to resume peritoneal dialysis tonight Current Visit: Yes Oncology Subjective PN Interval history: Patient is stable. Will DC Fortaz and hydrocortisone IV. We will place on low- dose prednisone twice daily for adrenal supplementation. Her bowel movements are improving in consistency. We are now contemplating swing bed placement perhaps on Tuesday. She will not be able to undergo chemotherapy this coming week as was previously scheduled. Continue to watch her platelet count currently at 31,000 with Plavix on hold Exam - Constitutional Vitals: Period Temp Pulse Resp BP Sys/Mckeon Pulse Ox Last 24 Hr 97.0 F-97.8 F 60-93 16-21 104-143/59-81 92-96 Results - Labs CBC & BMP: 02/06/17 04:00 02/04/17 04:00
[2017-02-06] MEDS: predniSONE 5 MG TABLET PO SCH ×2 (12:24→20:22)
[2017-02-06] MEDS: LEVOFLOXACIN 500 MG TABLET PO SCH (12:24)
[2017-02-06] MEDS: ROSUVASTATIN 20 MG TABLET PO SCH (20:22)
[2017-02-07] MEDS: VANCOMYCIN 50 MG/ML 60 ML/BOTTLE PO SCH ×4 (00:05→17:41)
[2017-02-07 05:03] LABS: Basophils % 0.1 % (0.0-0.8); Hematocrit 29.3 VOL% (35.7-47.0); Hemoglobin 9.6 GM/DL (12.0-16.0); Immature Granulocytes % 3.3 %; Immature Granulocytes Absolute 0.49 #; Lymphocytes # 0.7 10*3/uL (1.4-4.0); Lymphocytes % 4.9 % (21.3-54.2); Mean Corpuscular HGB Conc 32.8 GM/DL (32-36); Mean Corpuscular Hemoglobin 29 PG (27-34); Mean Corpuscular Volume 89.6 FL (87-102); Mean Platelet Volume 12.1 FL (9.6-12.0); Monocytes # 0.6 10*3/uL (0.11-0.8); Monocytes % 4.2 % (1.7-12.7); Neutrophils # 13.2 10*3/uL (1.4-7.4); Neutrophils % 87.5 % (38.7-73.9); Red Blood Count 3.27 MC/CUMM (3.8-5.5); Red Cell Distribution Width 16.5 % (9.3-17.3); White Blood Count 15.1 T/CUMM (4-12)
[2017-02-07 05:12] LABS: Platelet Count 36 T/CUMM (130-400)
[2017-02-07 05:36] LABS: Band Neutrophils 2 % (0-10); Lymphocytes 5 % (20-55); Segmented Neutrophils 93 % (50-85)
[2017-02-07 05:37] LABS: Platelet Estimate Decreased; Total Cells Counted 100
[2017-02-07] MEDS: SEVELAMER CARBONATE 800 MG TABLET PO SCH ×3 (07:45→16:33)
[2017-02-07] MEDS: POTASSIUM CHLORIDE 8 MEQ CAPSULE PO SCH (09:15)
[2017-02-07] MEDS: CALCIUM (CARBONATE)/VITAMIN D 600 MG-400 UNIT TABLET PO SCH (09:15)
[2017-02-07] MEDS: MULTIVITAMIN (BEROCCA) TABLET PO SCH (09:15)
[2017-02-07] MEDS: FLUoxetine 20 MG CAPSULE PO SCH (09:16)
[2017-02-07] MEDS: INSULIN ASPART PROTAMINE/ASPART 70/30 100 UNIT/ML SUBCUT SCH ×2 (09:16→21:12)
[2017-02-07] MEDS: metroNIDAZOLE 500 MG TABLET PO SCH ×3 (09:16→21:11)
[2017-02-07] MEDS: LACTOBACILLUS RHAMNOSUS GG CAPSULE PO SCH ×2 (09:16→21:11)
[2017-02-07] MEDS: PANTOPRAZOLE 40 MG TABLET PO SCH (09:16)
[2017-02-07] MEDS: predniSONE 5 MG TABLET PO SCH ×2 (09:16→21:10)
[2017-02-07] MEDS: CALCITRIOL 0.25 MCG CAPSULE PO SCH (09:16)
[2017-02-07] MEDS: INSULIN LISPRO 100 UNIT/ML SUBCUT SCH ×4 (09:16→21:12)
[2017-02-07] MEDS: DESITIN 4OZ/NYSTATIN 15 GRAM MIXTURE PASTE TOP SCH ×2 (09:18→21:23)
[2017-02-07] MEDS: MUPIROCIN 2% OINT 22 GM TUBE TOP SCH ×2 (09:18→21:23)
--- NOTE | 2017-02-07 12:25 | Nephrology Progress Note ---
Nephrology - PN: Subj Interval history: Ms. Tellez is seen in follow-up of her end-stage renal disease managed with peritoneal dialysis. Peritoneal dialysis going very well today. She is comfortable and her manual exchanges have been effective. Chest is clear no changes are made she will continue with the same peritoneal dialysis exchange. Exam (PN)-Nephrology - Vital Signs Vital signs: Period Temp Pulse Resp BP Sys/Mckeon Pulse Ox Last 24 Hr 96.6 F-97.6 F 58-87 16-20 108-130/59-68 92-98 - Lab 02/07/17 04:00 02/04/17 04:00 Most recent lab results Calcium 7.8 MG/DL (8.5-10.1) L 02/04/17 04:00 Magnesium 1.5 MG/DL (1.8-2.4) L 01/29/17 04:41
--- NOTE | 2017-02-07 15:44 | Oncology Progress Note ---
Assessment and Plan (1) Metastatic adenocarcinoma Status: Acute Assessment and plan: The patient has adequate white blood cell count at this time with prior Neulasta administration. We will continue to follow her hemoglobin and platelets while hospitalized. I am going to permanently discontinue warfarin which was initiated last month due to upper extremity DVT. She will remain on Plavix due to the CVA. Her blood final cultures will need to be followed up with antibiotic adjustments made. Dr. Lam is notified of her admission and she should be able to resume peritoneal dialysis tonight Current Visit: Yes Oncology Subjective PN Interval history: Metastatic adenocarcinoma, Pseudomonas bacteremia, and now C. difficile colitis. Platelets remain low with Plavix on hold. History of CVA 2. She is moving all extremities today and appears nontoxic. She is on both Flagyl and vancomycin orally for her colitis. I am going to add a small amount of Imodium as she had pre-existing diarrhea for several months prior to this hospitalization. Will ask for swing bed placement tomorrow Exam - Constitutional Vitals: Period Temp Pulse Resp BP Sys/Mckeon Pulse Ox Last 24 Hr 96.6 F-97.8 F 58-104 19-20 108-126/58-68 92-98 Results - Labs CBC & BMP: 02/07/17 04:00 02/04/17 04:00
[2017-02-07] MEDS: LOPERAMIDE 2 MG CAPSULE PO SCH (16:32)
[2017-02-07] MEDS: ROSUVASTATIN 20 MG TABLET PO SCH (21:11)
[2017-02-08] MEDS: VANCOMYCIN 50 MG/ML 60 ML/BOTTLE PO SCH ×4 (00:18→17:32)
[2017-02-08] MEDS: HEPARIN LOCK FLUSH 500 UNIT/5 ML SYRINGE IV PRN (04:31)
[2017-02-08 05:07] LABS: Basophils % 0.1 % (0.0-0.8); Eosinophils % 0.1 % (0.00-10.9); Hematocrit 31.7 VOL% (35.7-47.0); Hemoglobin 10.4 GM/DL (12.0-16.0); Immature Granulocytes % 4.2 %; Immature Granulocytes Absolute 0.57 #; Lymphocytes # 0.7 10*3/uL (1.4-4.0); Mean Corpuscular HGB Conc 32.8 GM/DL (32-36); Mean Corpuscular Hemoglobin 29 PG (27-34); Mean Platelet Volume 11.7 FL (9.6-12.0); Monocytes # 0.7 10*3/uL (0.11-0.8); Monocytes % 4.8 % (1.7-12.7); Neutrophils # 11.6 10*3/uL (1.4-7.4); Neutrophils % 85.8 % (38.7-73.9); Red Blood Count 3.56 MC/CUMM (3.8-5.5); Red Cell Distribution Width 16.9 % (9.3-17.3); White Blood Count 13.5 T/CUMM (4-12)
[2017-02-08 05:21] LABS: Platelet Count 27 T/CUMM (130-400)
[2017-02-08 06:01] LABS: Band Neutrophils 1 % (0-10); Lymphocytes 5 % (20-55); Segmented Neutrophils 92 % (50-85); Total Cells Counted 100
[2017-02-08 06:02] LABS: Burr Cells Slight; Platelet Estimate Decreased
[2017-02-08] MEDS: SEVELAMER CARBONATE 800 MG TABLET PO SCH ×3 (07:30→17:12)
--- NOTE | 2017-02-08 08:39 | Oncology Progress Note ---
Assessment and Plan (1) Metastatic adenocarcinoma Status: Acute Assessment and plan: The patient has adequate white blood cell count at this time with prior Neulasta administration. We will continue to follow her hemoglobin and platelets while hospitalized. I am going to permanently discontinue warfarin which was initiated last month due to upper extremity DVT. She will remain on Plavix due to the CVA. Her blood final cultures will need to be followed up with antibiotic adjustments made. Dr. Lam is notified of her admission and she should be able to resume peritoneal dialysis tonight Current Visit: Yes Oncology Subjective PN Interval history: Patient remained stable overnight. I have discussed the case with case management to feels pessimistic about rehab placement. This is complicated by active peritoneal hemodialysis and plans for upcoming chemotherapy. Her bowel movements are improved. It has came to my attention that she has a right inguinal ulceration. This was purulent on today's examination though surprisingly nonpainful. A culture was obtained. She remains thrombocytopenic most likely from prior chemotherapy. However I am discontinuing some possible medications that I feel are nonessential at this time including rosuvastatin Prozac and low-dose heparin flushes. Exam - Constitutional Vitals: Period Temp Pulse Resp BP Sys/Mckeon Pulse Ox Last 24 Hr 97.0 F-97.8 F 81-104 18-20 98-126/58-65 95-97 Results - Labs CBC & BMP: 02/08/17 04:00 02/04/17 04:00
[2017-02-08] MEDS: LOPERAMIDE 2 MG CAPSULE PO SCH (09:29)
[2017-02-08] MEDS: PANTOPRAZOLE 40 MG TABLET PO SCH (09:29)
[2017-02-08] MEDS: MULTIVITAMIN (BEROCCA) TABLET PO SCH (09:29)
[2017-02-08] MEDS: INSULIN ASPART PROTAMINE/ASPART 70/30 100 UNIT/ML SUBCUT SCH ×2 (09:29→20:59)
[2017-02-08] MEDS: metroNIDAZOLE 500 MG TABLET PO SCH ×3 (09:29→21:03)
[2017-02-08] MEDS: predniSONE 5 MG TABLET PO SCH (09:29)
[2017-02-08] MEDS: CALCIUM (CARBONATE)/VITAMIN D 600 MG-400 UNIT TABLET PO SCH (09:29)
[2017-02-08] MEDS: CALCITRIOL 0.25 MCG CAPSULE PO SCH (09:29)
[2017-02-08] MEDS: LEVOFLOXACIN 500 MG TABLET PO SCH ×2 (09:29→11:30)
[2017-02-08] MEDS: POTASSIUM CHLORIDE 8 MEQ CAPSULE PO SCH (09:29)
[2017-02-08] MEDS: LACTOBACILLUS RHAMNOSUS GG CAPSULE PO SCH ×2 (09:29→21:03)
[2017-02-08] MEDS: DESITIN 4OZ/NYSTATIN 15 GRAM MIXTURE PASTE TOP SCH ×2 (09:30→21:04)
[2017-02-08] MEDS: INSULIN LISPRO 100 UNIT/ML SUBCUT SCH ×4 (10:04→21:03)
[2017-02-08] MEDS: MUPIROCIN 2% OINT 22 GM TUBE TOP SCH ×2 (10:04→21:00)
--- NOTE | 2017-02-08 12:21 | Nephrology Progress Note ---
Nephrology - PN: Subj Interval history: No nausea or shortness of breath. Diarrhea improved. PD fluid remains clear Exam (PN)-Nephrology - Vital Signs Vital signs: Period Temp Pulse Resp BP Sys/Mckeon Pulse Ox Last 24 Hr 96.6 F-97.7 F 77-96 18-20 98-126/58-65 95-97 Exam: Gen.: Alert and oriented x3. ENT: Pupils equal round reactive to light. EOMs intact. Mucous membranes moist. Neck: Supple. No JVD or bruit. Cardiovascular: Regular rate and rhythm. No murmur rub or gallop Lungs: Clear Abdomen: Soft. Nontender. Positive bowel sounds. No organomegaly Extremities: No edema - Lab 02/08/17 04:00 02/04/17 04:00 Most recent lab results Calcium 7.8 MG/DL (8.5-10.1) L 02/04/17 04:00 Magnesium 1.5 MG/DL (1.8-2.4) L 01/29/17 04:41 Assessment and Plan (1) End-stage renal disease on peritoneal dialysis Status: Acute Assessment and plan: 66-year-old woman admitted with: * ESRD. Peritoneal dialysis will continue with 1.5% exchanges. * Bacteremia. Blood culture grew Pseudomonas. Continue current antibiotics * Metastatic adenocarcinoma. Status post 2 courses chemotherapy * Anemia. Transfused * Diabetes mellitus * Cerebrovascular disease * Diarrhea. C. difficile positive. Continue Flagyl * Thrombocytopenia Current Visit: Yes (2) Cerebrovascular disease Status: Acute Current Visit: Yes (3) Anemia Status: Acute Current Visit: Yes (4) Hypokalemia Status: Acute Current Visit: Yes (5) Hypotension Status: Acute Current Visit: Yes (6) Metastatic adenocarcinoma Status: Acute Current Visit: Yes (7) Diabetes Status: Acute Current Visit: No (8) Bacteremia due to Gram-negative bacteria Status: Acute Current Visit: Yes
[2017-02-08] MEDS ORDERED: SODIUM CHLORIDE 0.9% 500 ML IV PRN (16:55)
[2017-02-08] MEDS ORDERED: SODIUM CHLORIDE 0.9% 500 ML IV ONE ×2 (17:10→17:51)
[2017-02-08] MEDS: COLLAGENASE OINT 30 GM TUBE TOP SCH (17:11)
--- NOTE | 2017-02-08 17:48 | EKG Report ---
Stationary ECG Study [facility] Test Date: 02/08/2017 5:49:07 PM Pat Name: JAVIER MIGUEL Department: Room: 428 Gender: F Mend Worker: HARRIET : 1950 Requested by: Jakub Lozano Order Number: [id number] Reading MD: STERLING HOUSTON Intervals [place] Rate: 72 P: 51 TX: 161 QRS: -14 QRSD: 100 T: 59 QT: 384 QTc: 408 Interpretive Statements SINUS RHYTHM WITH OCCASIONAL VENTRICULAR PREMATURE COMPLEXES WITH FREQUENT SUPRAVENTRICULAR PREMATURE COMPLEXES INFERIOR MYOCARDIAL INFARCTION, PROBABLY OLD WITH POSTERIOR EXTENSION Electronically Signed On 02-10-17 16:32:14 CDT by STERLING HOUSTON [email or web address]
[2017-02-08 18:22] LABS: Osmolality,Calculated 290.7 MOS/KG (273-304); Potassium 3.3 MMOL/L (3.5-5.1)
[2017-02-08] MEDS: ONDANSETRON 4 MG/2 ML VIAL IV PRN (20:27)
[2017-02-08] MEDS ORDERED: predniSONE 5 MG TABLET PO SCH (21:00)
[2017-02-09] MEDS: VANCOMYCIN 50 MG/ML 60 ML/BOTTLE PO SCH ×3 (00:47→12:15)
[2017-02-09] MEDS: ONDANSETRON 4 MG/2 ML VIAL IV PRN (04:52)
[2017-02-09] MEDS: INSULIN LISPRO 100 UNIT/ML SUBCUT SCH ×2 (08:24→12:42)
[2017-02-09] MEDS ORDERED: predniSONE 10 MG TABLET PO SCH (09:00)
--- NOTE | 2017-02-09 09:10 | Oncology Progress Note ---
Assessment and Plan (1) Metastatic adenocarcinoma Status: Acute Assessment and plan: The patient has adequate white blood cell count at this time with prior Neulasta administration. We will continue to follow her hemoglobin and platelets while hospitalized. I am going to permanently discontinue warfarin which was initiated last month due to upper extremity DVT. She will remain on Plavix due to the CVA. Her blood final cultures will need to be followed up with antibiotic adjustments made. Dr. Lam is notified of her admission and she should be able to resume peritoneal dialysis tonight Current Visit: Yes Oncology Subjective PN Interval history: The patient had a syncopal episode yesterday after arising from a seated position. She had been in a bedside chair for several hours. This could have been a combination of hypovolemia and also what appears to be some degree of adrenal insufficiency. As a result of the event we did not perform dialysis last night. She has a bolus order standing for systolic less than 100. I have also increased her morning dose of prednisone to 10 mg with 5 mg in the afternoon. I am awaiting results of her right inguinal culture. This appeared stable this morning without any increase in purulent discharge. She is incontinent of stool though a C. difficile was negative yesterday. We will repeat another sample today and it is my understanding she has been accepted to [facility]. In light of this I plan to postpone chemotherapy until approximately Tuesday, February 21. I am also continuing to follow thrombocytopenia with today CBC pending. Her Plavix has been on hold for several days. Exam - Constitutional Vitals: Period Temp Pulse Resp BP Sys/Mckeon Pulse Ox Last 24 Hr 96.5 F-97.9 F 72-101 18-20 87-175/53-70 90-98 Results - Labs CBC & BMP: 02/08/17 04:00 02/08/17 18:00
[2017-02-09] MEDS: metroNIDAZOLE 500 MG TABLET PO SCH (09:24)
[2017-02-09] MEDS: PANTOPRAZOLE 40 MG TABLET PO SCH (09:24)
[2017-02-09] MEDS: MUPIROCIN 2% OINT 22 GM TUBE TOP SCH (09:25)
[2017-02-09] MEDS: COLLAGENASE OINT 30 GM TUBE TOP SCH (09:25)
[2017-02-09] MEDS: SEVELAMER CARBONATE 800 MG TABLET PO SCH ×2 (09:25→11:41)
[2017-02-09] MEDS: MULTIVITAMIN (BEROCCA) TABLET PO SCH (09:26)
[2017-02-09] MEDS: LACTOBACILLUS RHAMNOSUS GG CAPSULE PO SCH (09:26)
[2017-02-09] MEDS: INSULIN ASPART PROTAMINE/ASPART 70/30 100 UNIT/ML SUBCUT SCH (09:26)
[2017-02-09] MEDS: CALCIUM (CARBONATE)/VITAMIN D 600 MG-400 UNIT TABLET PO SCH (09:26)
[2017-02-09] MEDS: DESITIN 4OZ/NYSTATIN 15 GRAM MIXTURE PASTE TOP SCH (09:27)
[2017-02-09] MEDS: CALCITRIOL 0.25 MCG CAPSULE PO SCH (09:27)
[2017-02-09] MEDS: LOPERAMIDE 2 MG CAPSULE PO SCH (09:30)
[2017-02-09] MEDS: POTASSIUM CHLORIDE 8 MEQ CAPSULE PO SCH (09:31)
[2017-02-09 10:01] LABS: Basophils % 0.1 % (0.0-0.8); Eosinophils % 0.2 % (0.00-10.9); Hematocrit 32.7 VOL% (35.7-47.0); Hemoglobin 10.7 GM/DL (12.0-16.0); Immature Granulocytes % 3.2 %; Immature Granulocytes Absolute 0.44 #; Lymphocytes # 0.8 10*3/uL (1.4-4.0); Lymphocytes % 6.1 % (21.3-54.2); Mean Corpuscular HGB Conc 32.7 GM/DL (32-36); Mean Corpuscular Hemoglobin 30 PG (27-34); Mean Corpuscular Volume 90.8 FL (87-102); Mean Platelet Volume 11.6 FL (9.6-12.0); Monocytes # 0.5 10*3/uL (0.11-0.8); Neutrophils # 11.8 10*3/uL (1.4-7.4); Neutrophils % 86.4 % (38.7-73.9); Red Cell Distribution Width 17.3 % (9.3-17.3); White Blood Count 13.6 T/CUMM (4-12)
[2017-02-09 10:16] LABS: Platelet Count 34 T/CUMM (130-400)
[2017-02-09 11:09] LABS: Platelet Estimate Decreased
[2017-02-09 11:14] VITALS: BP 82/48
[2017-02-09] MEDS ORDERED: HEPARIN LOCK FLUSH 500 UNIT/5 ML SYRINGE IV ONE (13:39)
--- NOTE | 2017-02-09 19:35 | Nephrology Progress Note ---
Nephrology - PN: Subj Interval history: She had orthostatic hypotension last night. She was given 1 L normal saline IV. Peritoneal dialysis was suspended. She feels much better today. She is alert and oriented. Exam (PN)-Nephrology - Vital Signs Vital signs: Period Temp Pulse Resp BP Sys/Mckeon Pulse Ox Last 24 Hr 96.5 F-97.9 F 72-99 17-20 82-175/40-70 90-96 Exam: ENT: Normal Cardiovascular: Regular rate and rhythm. No murmur rub or gallop Lungs: Clear Extremities: No edema - Lab 02/09/17 09:46 02/08/17 18:00 Most recent lab results Calcium 7.0 MG/DL (8.5-10.1) L 02/08/17 18:00 Magnesium 1.5 MG/DL (1.8-2.4) L 01/29/17 04:41 Assessment and Plan (1) End-stage renal disease on peritoneal dialysis Status: Acute Assessment and plan: 66-year-old woman admitted with: * ESRD. Peritoneal dialysis temporarily suspended due to orthostatic hypotension. * Bacteremia. Blood culture grew Pseudomonas. Continue current antibiotics * Metastatic adenocarcinoma. Status post 2 courses chemotherapy * Anemia. Transfused * Diabetes mellitus * Cerebrovascular disease * Diarrhea. C. difficile positive. Continue Flagyl * Thrombocytopenia (2) Cerebrovascular disease Status: Acute (3) Anemia Status: Acute (4) Hypokalemia Status: Acute (5) Hypotension Status: Acute (6) Metastatic adenocarcinoma Status: Acute (7) Diabetes Status: Acute (8) Bacteremia due to Gram-negative bacteria Status: Acute
--- NOTE | 2017-02-10 09:09 | Discharge Summary ---
Hospital Course - Hospital Course Hospital Course: Patient with diabetes CVA and metastatic adenocarcinoma of undetermined primary who is received 2 cycles of chemotherapy. The patient was admitted with weakness and fever. She also has a history of end-stage renal disease and undergoes peritoneal dialysis. The patient did have anemia and thrombocytopenia during her hospital stay that was felt attributed to prior chemotherapy. Initial blood cultures obtained on January 27 were positive for Pseudomonas and she received IV antibiotics initially with eventual conversion to oral levofloxacin. The patient did develop worsening diarrhea acute on chronic while hospitalized and was found to be positive for C difficile. She was treated with both oral metronidazole and vancomycin for this. She developed symptoms of adrenal insufficiency after discontinuation of oral steroids. The patient was receiving prednisone from prior hospitalization for what was felt to be self-limited colitis seen on lower endoscopy. Her symptoms included hypotension malaise as well as nausea vomiting. She did receive IV hydrocortisone for several days and is now back on a twice daily prednisone regimen 10 mg a.m. and 5 mg p.m. She is tolerating oral intake very well at this time. Her Plavix has been on hold for platelet count less than 55,000. On the day of her discharge her platelets were gradually beginning to improve at 31,000. There was no bleeding noted. Her Plavix should be restarted for a level of 50,000 or greater platelet count. Several days prior to discharge there was noted to be a right inguinal ulceration. This did have purulent drainage with culture results as of today showing gram-negative rods. She is to continue on oral antibiotics with wound care addressing the topical issues. Her chemotherapy has been delayed for her to go to swing bed. Her infection and thrombocytopenia also will prohibit chemotherapy for this coming week. As of right now she is scheduled to see me on or around February 21 Diagnosis - Discharge Diagnosis (1) Metastatic adenocarcinoma Status: Acute Discharge Plan - Discharge Data Disposition: Swing Bed, Hos Based, [facility] - Discharge Medications No Action Insulin Aspart Prot/Asp 70/30 [NovoLOG Mix 70/30] 6 unit SUBCUT BID Fluoxetine HCl [Prozac] 40 mg PO QAM Sevelamer Carbonate Tab [Renvela Tab] 800 mg PO TID W/MEALS Calcitriol 0.5 mcg PO QAM Tramadol HCl [Tramadol Tab] 50 mg PO Q12H PRN PRN Reason: Pain Loratadine Tab [Claritin Tab] 10 mg PO QOTHER DAY PRN PRN Reason: Sinus Symptoms Ondansetron [Ondansetron Odt] 8 mg PO Q8H PRN PRN Reason: Nausea Calcium Carbonate/Vitamin D3 [Calcium 600-Vit D3 800 Tablet] 1 each PO QAM Potassium Chloride 8 meq PO DAILY W/BREAKFAST Promethazine Tab [Phenergan Tab] 25 mg PO Q6H PRN PRN Reason: Nausea/Vomiting Prorenal D 1 tablet PO QAM Omeprazole 20 mg PO QAM Rosuvastatin Calcium 40 mg PO BEDTIME predniSONE TAB [PredniSONE] 5 mg PO BEDTIME predniSONE TAB [PredniSONE] 10 mg PO DAILY - Follow Up or Referral - Forms/Instructions Exam - Constitutional Vitals: Period Temp Pulse Resp BP Sys/[place] Pulse Ox Last 24 Hr 97.3 F 99 17 82-83/40-48 96 Discharge Results Procedures and tests throughout hospitalization: Pending Orders 02/08/17 08:30 Wound Culture Routine Labs on day of discharge: Labs from last 24 hours 02/09/17 02/09/17 11:03 09:46 WBC 13.6 H RBC 3.60 L Hgb 10.7 L Hct 32.7 L MCV 90.8 MCH 30 MCHC 32.7 RDW 17.3 Plt Count 34 L* D MPV 11.6 Neut % (Auto) 86.4 H Lymph % (Auto) 6.1 L [place] % (Auto) 4.0 Eos % (Auto) 0.2 Baso % (Auto) 0.1 Neut # (Auto) 11.8 H Lymph # (Auto) 0.8 L [place] # (Auto) 0.5 Eos # (Auto) 0.0 Baso # (Auto) 0.0 Immature Gran % 3.2 Nucleated RBC % 0.0 Immature Gran # 0.44 Nucleated RBCs # 0.00 Platelet Estimate Decreased POC Glucose 88 Preliminary micro results at discharge 02/08/17 08:30 Wound Culture - Preliminary Groin - Right Gram Negative Rods DS: Provider Date of admission: 01/27/17 15:13 Primary care physician: Amos Duarte MD Attending physician on admission: Jakub Dumont MD Consults: 01/27/17 17:20 Consult to Physician [CONS] Routine Comment: ESRD w/ PD Consulting Provider: Saul Lam Person Notified: bird Date Notified: 01/28/17 Time Notified: 09:05 Consult Notification Comment: also notifies staff that pt will move to room upstairs later today 01/27/17 18:26 Consult to Pastoral Services [CONS] Routine Comment: Pastoral Screen: Request Filler Feeder Visit Pastoral Screen Source of Request: Patient 01/31/17 08:39 Consult to Physical Therapy [CONS] Routine Reason for Physical Therapy: Evaluate and Treat 02/07/17 16:13 Consult to Case Mgmt/Social Srvs [CONS] Routine Reason for Case Mgmt/Social Srvs: Swingbed/SNF/Prison 02/07/17 17:48 Consult to Wound Care - [place] [CONS] Routine Reason for Wound Care: Wound Care Management Consult Comment: Right Groin Discharging clinician: Jakub Dumont MD
== END 2017-02-09 15:40 | DRG 314 ==
LOC: EDBD → EDUNIT# → N.ED 12:18 → N.EDINP 15:13 → N.CC 17:05 → N.4E 01-28 11:17
PROVIDERS: ADMIT Specialist; ATTEND Specialist